=== PATIENT | female | born 1980 | race African-American/Black ===

== ENCOUNTER 2021-02-26 13:10 | Inpatient (IN) | payer MEDICARE, MEDICAID, SELFPAY ==
--- NOTE | 2021-02-26 16:34 | PM.IMCN ---
History of Present Illness Data of Consult Service Date: 02/26/21 Requesting physician: Deyvi Santiago Primary Care Provider: Geoff Shepard MD HPI Reason for consult: Routine This is a 40 yo F admitted to . Medical consultation sought for routine medical H&P. Patient is seen and examined in her room. History is otained from the records sent over from [facility]. Patient is unable to provide any meaningful history and in fact she is unable to participate in any conversation at this time. She appears to be having a conversation with herself. Per records from [facility] -- patient has PMH of schizophrenia, bipolar disorder, PTSD, HTN, Hypothyroidism and is a resident of a jail. She wasn sent to [facility] for evaluation after trying to elope from the jail. She appeared to be responding to an internal stimuli. She was reportedly far off her baseline on the day she presented to [facility]. She underwent medical evaluation after which she was medically cleared and a psych bed search was initiated. She was subsequently [place] [facility] Review of Systems Review of Systems: unable to obtain [facility] Social History Advance Directives: No Advance Directives Information Provided: No Meds Allergies Allergy/AdvReac Type Severity Reaction Status Date / Time No Known Allergies Allergy Unverified 02/26/21 15:41 Active Medications: Current Medications Generic Name Dose Route Start Last Admin Trade Name [place] PRN Reason Stop Dose Admin Acetaminophen 650 mg 02/26/21 13:14 Acetaminophen 325 Mg Tablet PO Q6H PRN Headache/Pain Mild Scale (1-3) Al Hydroxide/Mg Hydroxide 30 ml 02/26/21 13:14 Magnesium Hydrox/Alum Hydrox 30 Ml Oral.Susp PO Q6H PRN Heartburn/Nausea Aripiprazole 30 mg 02/27/21 09:00 Aripiprazole 30 Mg Tablet PO DAILY OLYA Benztropine Mesylate 2 mg 02/26/21 21:00 Benztropine Mesylate 1 Mg Tablet PO BID OLYA Clonazepam 0.5 mg 02/26/21 21:00 Clonazepam 0.5 Mg Tablet PO BID OLYA Clonidine HCl 0.1 mg 02/26/21 21:00 Clonidine Hcl 0.1 Mg Tablet PO BEDTIME OLYA Protocol Divalproex Sodium 250 mg 02/26/21 21:00 Divalproex Sodium Er 250 Mg Tab.Er.24h PO BEDTIME OLYA Divalproex Sodium 1,000 mg 02/26/21 21:00 Divalproex Sodium Er 500 Mg Tab.Er.24h PO BEDTIME [facility] Docusate Sodium 100 mg 02/26/21 21:00 Docusate Sodium 100 Mg Capsule PO BID [facility] Haloperidol 5 mg 02/27/21 09:00 Haloperidol 5 Mg Tablet PO DAILY [facility] Haloperidol 15 mg 02/26/21 21:00 Haloperidol 5 Mg Tablet PO BEDTIME [facility] Hydroxyzine HCl 25 mg 02/26/21 13:14 Hydroxyzine Hcl 25 Mg Tablet PO BEDTIME PRN Anxiety Lactase 1 tab 02/26/21 17:00 Lactase Tablet PO TIDWM [facility] Levothyroxine Sodium 50 mcg 02/27/21 06:30 Levothyroxine Sodium 50 Mcg Tablet PO DAILY@0630 [facility] [place] Carbonate 900 mg 02/26/21 21:00 [place] Carbonate 300 Mg Capsule PO BEDTIME [facility] Loratadine 10 mg 02/27/21 09:00 Loratadine 10 Mg Tablet PO DAILY [facility] Magnesium Hydroxide 30 ml 02/26/21 13:14 Milk Of Magnesia 30 Ml Oral.Susp PO DAILY PRN Constipation Nicotine Polacrilex 2 mg 02/26/21 13:14 Nicotine Polacrilex 2 Mg Gum BUCCAL Q2H PRN Nicotine Cravings Oxybutynin Chloride 10 mg 02/27/21 09:00 Oxybutynin Chloride Er 5 Mg Tab.Er.24 PO DAILY [facility] Sertraline HCl 150 mg 02/27/21 09:00 Sertraline Hcl 50 Mg Tablet PO DAILY [facility] Trazodone HCl 50 mg 02/26/21 13:14 Trazodone Hcl 50 Mg Tablet PO BEDTIME PRN Insomnia Home Medications Medication Instructions Recorded Confirmed Last Taken Type aripiprazole [Abilify] 30 mg PO DAILY 02/26/21 02/26/21 Unknown History benztropine 2 mg PO BID 02/26/21 02/26/21 Unknown History clonazepam 0.5 mg PO BID 02/26/21 02/26/21 Unknown History clonidine HCl 0.1 mg PO BEDTIME 02/26/21 02/26/21 Unknown History divalproex [Depakote ER] 1,250 mg PO BEDTIME 02/26/21 02/26/21 Unknown History docusate sodium 100 mg PO BID 02/26/21 02/26/21 Unknown History haloperidol [Haldol] 5 mg PO DAILY 02/26/21 02/26/21 Unknown History haloperidol [Haldol] 15 mg PO BEDTIME 02/26/21 02/26/21 Unknown History lactase 3,000 unit TIDWMEAL 02/26/21 02/26/21 Unknown History levothyroxine 50 mcg PO DAILY@0630 02/26/21 02/26/21 Unknown History lithium carbonate 900 mg PO BEDTIME 02/26/21 02/26/21 Unknown History loratadine 10 mg PO DAILY 02/26/21 02/26/21 Unknown History oxybutynin chloride 10 mg PO DAILY 02/26/21 02/26/21 Unknown History sertraline 150 mg PO DAILY 02/26/21 02/26/21 Unknown History Physical Exam Const: Other: General - talking to self, laying in bed and appears without any acute distress Cardiovascular - S1S2 Lungs - no respiratory distress apprecaited Abdomen - soft, nontender, no rebound or guarding Neuro - awake and alert, moving all 4 limbs, no obvious focal neurological deficits Psych - tangential thoughts, unable to redirect Assessment and Plan (1) Hypothyroidism: Status: Acute This is a 40 yo F with a PMH of HTN, hypothyrodism and psych reported from [facility] as schizophrenia, bipolar disorder, PTSD who is a resident of a jail and is admitted to . Medical consultation sought for routine medical H&P. At this time, patients symptoms appear related to a primary psych diagnosis. She did have a temp of 100.0 (once, with repeat down to 99.2) at [facility]. Her infectious work up there was negative (at least UA, I do not see the results of chest xr or any blood cultures if drawn). Her TSH was mildly elevated -- would recommend checking a TSH with reflex T4. In the meantime, we can continue her baseline synthroid. She had ketones in the urine + blood (from [facility] records) -- which was felt to be secondary to dehydration. She was treated with IVF there. Would encourage oral hydration. Please reconsult if any medical issues arise.
[2021-02-26 17:00] VITALS: BP 134/82; PULSE 86; RESP 16; TEMP 36.8; O2SAT 99
[2021-02-26] MEDS: Lactase TABLET 1 TAB PO (17:11)
[2021-02-26] MEDS: hydrOXYzine HCL 25 MG TABLET PO (17:11)
--- NOTE | 2021-02-26 18:47 | PC.ADMIT ---
Pt unable to answer questions d/t disorganized thought process. Legal Guardian and [facility] staff called, messages left, awaiting return call. Therefore the information included in admission asssessment is from crisis evaluation and observation of patient only. This patient is alert but disoriented, exhibits bizarre speech and behaviors. She displays lability of mood - laughing at times, tearful at others. Her ability to attend to assessment or general conversation is extremely limited. She is distracted to the point where even eating is difficult. She is hyperverbal but unable to answer questions appropriately. She is responding to internal stimuli. Notably her belongings are soiled with urine and were washed upon her arrival to the unit. She is on 5 minute checks for safety.
[2021-02-26] MEDS: HaloperidoL 5 MG TABLET 15 MG PO (20:27)
[2021-02-26] MEDS: Lithium Carbonate 300 MG CAPSULE 900 MG PO (20:28)
[2021-02-26] MEDS: clonazePAM 0.5 MG TABLET PO (20:29)
[2021-02-26] MEDS: Divalproex Sodium ER 500 MG TAB.ER.24H 1000 MG PO (20:29)
[2021-02-26] MEDS: Divalproex Sodium ER 250 MG TAB.ER.24H PO (20:30)
[2021-02-26] MEDS: Benztropine Mesylate 1 MG TABLET 2 MG PO (20:31)
[2021-02-26] MEDS: Docusate Sodium 100 MG CAPSULE PO (20:31)
[2021-02-26 20:32] VITALS: BP 130/80; PULSE 92
[2021-02-26] MEDS: cloNIDine HCL 0.1 MG TABLET PO (20:32)
[2021-02-27] MEDS: hydrOXYzine HCL 25 MG TABLET PO (03:36)
[2021-02-27 10:08] LABS: TSH reflex Free T4 2.68 uIU/mL (0.32-4.0)
[2021-02-27] MEDS: Lactase TABLET 1 TAB PO (14:08)
[2021-02-27] MEDS: Benztropine Mesylate 1 MG TABLET 2 MG PO (14:11)
[2021-02-27] MEDS: clonazePAM 0.5 MG TABLET PO ×2 (14:12→20:43)
[2021-02-27] MEDS: Docusate Sodium 100 MG CAPSULE PO (14:13)
[2021-02-27] MEDS: Levothyroxine Sodium 50 MCG TABLET PO (14:13)
[2021-02-27] MEDS: Loratadine 10 MG TABLET PO (14:14)
[2021-02-27] MEDS: ARIPiprazole 30 MG TABLET PO (14:14)
[2021-02-27] MEDS: HaloperidoL 5 MG TABLET PO (14:14)
[2021-02-27] MEDS: Sertraline HCL 50 MG TABLET 150 MG PO (14:15)
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
[2021-02-27 18:00] VITALS: BP 144/86; PULSE 88; RESP 18; TEMP 36.7; O2SAT 99
[2021-02-27] MEDS: HaloperidoL 5 MG TABLET 15 MG PO (20:25)
[2021-02-27 20:47] VITALS: BP 146/88; PULSE 94
[2021-02-27] MEDS: cloNIDine HCL 0.1 MG TABLET PO (20:47)
[2021-02-27] MEDS: Divalproex Sodium ER 500 MG TAB.ER.24H 1000 MG PO (20:49)
[2021-02-27] MEDS: Lithium Carbonate 300 MG CAPSULE 900 MG PO (20:49)
[2021-02-27] MEDS: Divalproex Sodium ER 250 MG TAB.ER.24H PO (20:49)
[2021-02-28] MEDS: clonazePAM 0.5 MG TABLET PO ×2 (09:26→20:03)
[2021-02-28] MEDS: HaloperidoL 5 MG TABLET PO (09:26)
[2021-02-28] MEDS: Benztropine Mesylate 1 MG TABLET 2 MG PO ×2 (09:26→20:02)
[2021-02-28] MEDS: Docusate Sodium 100 MG CAPSULE PO ×2 (11:04→20:04)
[2021-02-28] MEDS: Lactase TABLET 1 TAB PO ×2 (11:04→16:49)
[2021-02-28] MEDS: Sertraline HCL 50 MG TABLET 150 MG PO (11:05)
[2021-02-28] MEDS: Levothyroxine Sodium 50 MCG TABLET PO (11:05)
[2021-02-28] MEDS: ARIPiprazole 30 MG TABLET PO (11:05)
[2021-02-28] MEDS: Loratadine 10 MG TABLET PO (11:05)
--- NOTE | 2021-02-28 13:31 | HO.PSYCHPN ---
Subjective Subjective Date of Service: 02/28/21 Reason For Visit: Schizophrenia Interim History: pt found in her bed talking softly to herself. difficult to comprehend speech. able to make out she is cold; MD suggests she get under her sheets and blanket. MD encourages pt to take her medication. per staff, slept much of the night. this morning episode of coming into the hallway disrobed, dripping with urine, screaming. taking psych meds. Mental Status Exam Mental Status Exam Narrative: dressed in [facility], lying in bed talking to herself. no PMA/PMR. cooperative with interview. speech rapid, soft, flat, mumbled, difficult to comprehend. thoughts disorganized. affect constricted, non-labile. mood not assessed, SI/HI/AVH not assessed, although pt does appear to be RIS. Diagnostics Vital Signs (24Hr): Vital Signs - 24 hr 02/27/21 18:00 02/27/21 20:47 Temperature 98.1 F Pulse Rate 88 94 Respiratory Rate 18 Blood Pressure 144/86 H 146/88 H Pulse Oximetry 99 Labs Labs: Laboratory Results - last 48 hr 02/27/21 09:20 TSH 2.68 Medications Medications Current Medications Generic Name Dose Route Start Last Admin Trade Name Freq PRN Reason Stop Dose Admin Acetaminophen 650 mg 02/26/21 13:14 Acetaminophen 325 Mg Tablet PO Q6H PRN Headache/Pain Mild Scale (1-3) Al Hydroxide/Mg Hydroxide 30 ml 02/26/21 13:14 Magnesium Hydrox/Alum Hydrox 30 Ml Oral.Susp PO Q6H PRN Heartburn/Nausea Aripiprazole 30 mg 02/27/21 09:00 02/28/21 11:05 Aripiprazole 30 Mg Tablet PO 30 mg DAILY OLYA Administration Benztropine Mesylate 2 mg 02/26/21 21:00 02/28/21 09:26 Benztropine Mesylate 1 Mg Tablet PO 2 mg BID OLYA Administration Clonazepam 0.5 mg 02/26/21 21:00 02/28/21 09:26 Clonazepam 0.5 Mg Tablet PO 0.5 mg BID OLYA Administration Clonidine HCl 0.1 mg 02/26/21 21:00 02/27/21 20:47 Clonidine Hcl 0.1 Mg Tablet PO 0.1 mg BEDTIME OLYA Administration Protocol Divalproex Sodium 250 mg 02/26/21 21:00 02/27/21 20:49 Divalproex Sodium Er 250 Mg Tab.Er.24h PO 250 mg BEDTIME OLYA Administration Divalproex Sodium 1,000 mg 02/26/21 21:00 02/27/21 20:49 Divalproex Sodium Er 500 Mg Tab.Er.24h PO 1,000 mg BEDTIME OLYA Administration Docusate Sodium 100 mg 02/26/21 21:00 02/28/21 11:04 Docusate Sodium 100 Mg Capsule PO 100 mg BID OLYA Administration Haloperidol 5 mg 02/27/21 09:00 02/28/21 09:26 Haloperidol 5 Mg Tablet PO 5 mg DAILY OLYA Administration Haloperidol 15 mg 02/26/21 21:00 02/27/21 20:25 Haloperidol 5 Mg Tablet PO 15 mg BEDTIME OLYA Administration Hydroxyzine HCl 25 mg 02/26/21 13:14 02/27/21 03:36 Hydroxyzine Hcl 25 Mg Tablet PO 25 mg BEDTIME PRN Administration Anxiety Lactase 1 tab 02/26/21 17:00 02/28/21 11:04 Lactase Tablet PO 1 tab TIDWM OLYA Administration Levothyroxine Sodium 50 mcg 02/27/21 06:30 02/28/21 11:05 Levothyroxine Sodium 50 Mcg Tablet PO 50 mcg DAILY@0630 OLYA Administration [place] Carbonate 900 mg 02/26/21 21:00 02/27/21 20:49 [place] Carbonate 300 Mg Capsule PO 900 mg BEDTIME OLYA Administration Loratadine 10 mg 02/27/21 09:00 02/28/21 11:05 Loratadine 10 Mg Tablet PO 10 mg DAILY OLYA Administration Magnesium Hydroxide 30 ml 02/26/21 13:14 Milk Of Magnesia 30 Ml Oral.Susp PO DAILY PRN Constipation Nicotine Polacrilex 2 mg 02/26/21 13:14 Nicotine Polacrilex 2 Mg Gum BUCCAL Q2H PRN Nicotine Cravings Oxybutynin Chloride 10 mg 02/27/21 09:00 02/28/21 11:05 Oxybutynin Chloride Er 5 Mg Tab.Er.24 PO 10 mg DAILY OLYA Administration Sertraline HCl 150 mg 02/27/21 09:00 02/28/21 11:05 Sertraline Hcl 50 Mg Tablet PO 150 mg DAILY OLYA Administration Trazodone HCl 50 mg 02/26/21 13:14 Trazodone Hcl 50 Mg Tablet PO BEDTIME PRN Insomnia Allergies Allergies Allergy/AdvReac Type Severity Reaction Status Date / Time No Known Allergies Allergy Unverified 02/26/21 15:41 Assessment & Plan Assessment & Plan (1) Schizoaffective disorder, bipolar type: Status: Acute Code(s): F25.0 - Schizoaffective disorder, bipolar type Assessment and Plan: restarted/continued outpt meds. check levels after 5 days. verify compliance. (2) PTSD (post-traumatic stress disorder): Status: Acute Code(s): F43.10 - Post-traumatic stress disorder, unspecified Assessment and Plan: continue/restart outpt medications regimen. Greater than 50% of the session was spent on counseling and/or coordination of care Reason for contiued inpatient stay Substantial Risk for: inability to function and rapid decompensation
[2021-02-28 15:11] VITALS: BP 133/83; PULSE 111; RESP 20; TEMP 36.4; O2SAT 95
[2021-02-28] MEDS: Divalproex Sodium ER 250 MG TAB.ER.24H PO (20:03)
[2021-02-28] MEDS: HaloperidoL 5 MG TABLET 15 MG PO (20:03)
[2021-02-28] MEDS: Divalproex Sodium ER 500 MG TAB.ER.24H 1000 MG PO (20:03)
[2021-02-28] MEDS: Lithium Carbonate 300 MG CAPSULE 900 MG PO (20:04)
[2021-02-28 22:28] VITALS: BP 122/90; PULSE 120; TEMP 36.6; O2SAT 98
[2021-02-28 23:22] VITALS: BP 122/90; PULSE 120
[2021-02-28] MEDS: cloNIDine HCL 0.1 MG TABLET PO (23:22)
[2021-03-01] MEDS: Benztropine Mesylate 1 MG TABLET 2 MG PO ×2 (11:47→20:48)
[2021-03-01] MEDS: clonazePAM 0.5 MG TABLET PO ×2 (11:48→20:48)
[2021-03-01] MEDS: ARIPiprazole 30 MG TABLET PO (11:48)
[2021-03-01] MEDS: Sertraline HCL 50 MG TABLET 150 MG PO (11:50)
[2021-03-01] MEDS: Loratadine 10 MG TABLET PO (11:50)
[2021-03-01] MEDS: Levothyroxine Sodium 50 MCG TABLET PO (11:50)
[2021-03-01] MEDS: Lactase TABLET 1 TAB PO ×2 (11:51→17:31)
[2021-03-01] MEDS: Docusate Sodium 100 MG CAPSULE PO ×2 (11:51→20:48)
[2021-03-01] MEDS: HaloperidoL 5 MG TABLET PO (12:00)
--- NOTE | 2021-03-01 15:41 | P.PNPSI_ITS ---
Subjective Subjective Date of Service: 03/01/21 Reason For Visit: Schizophrenia Interim History: pt found in her bed talking softly to herself. difficult to comprehend speech. MD encourages pt to take her medication. per staff, RIS all day yesterday. mildly more engageable. incontinent this morning. took all meds. Mental Status Exam Mental Status Exam Narrative: dressed in [facility], lying in bed talking to herself. no PMA/PMR. cooperative with interview. speech rapid, soft, flat, mumbled, difficult to comprehend. thoughts disorganized. affect constricted, non-labile. mood not assessed, SI/HI/AVH not assessed, although pt does appear to be RIS. Diagnostics Vital Signs (24Hr): Vital Signs - 24 hr 02/28/21 22:28 02/28/21 23:22 Temperature 97.9 F Pulse Rate 120 H 120 H Blood Pressure 122/90 H 122/90 H Pulse Oximetry 98 Medications Medications Current Medications Generic Name Dose Route Start Last Admin Trade Name Freq PRN Reason Stop Dose Admin Acetaminophen 650 mg 02/26/21 13:14 Acetaminophen 325 Mg Tablet PO Q6H PRN Headache/Pain Mild Scale (1-3) Al Hydroxide/Mg Hydroxide 30 ml 02/26/21 13:14 Magnesium Hydrox/Alum Hydrox 30 Ml Oral.Susp PO Q6H PRN Heartburn/Nausea Aripiprazole 30 mg 02/27/21 09:00 03/01/21 11:48 Aripiprazole 30 Mg Tablet PO 30 mg DAILY OLYA Administration Benztropine Mesylate 2 mg 02/26/21 21:00 03/01/21 11:47 Benztropine Mesylate 1 Mg Tablet PO 2 mg BID OLYA Administration Clonazepam 0.5 mg 02/26/21 21:00 03/01/21 11:48 Clonazepam 0.5 Mg Tablet PO 0.5 mg BID OLYA Administration Clonidine HCl 0.1 mg 02/26/21 21:00 02/28/21 23:22 Clonidine Hcl 0.1 Mg Tablet PO 0.1 mg BEDTIME OLYA Administration Protocol Divalproex Sodium 250 mg 02/26/21 21:00 02/28/21 20:03 Divalproex Sodium Er 250 Mg Tab.Er.24h PO 250 mg BEDTIME OLYA Administration Divalproex Sodium 1,000 mg 02/26/21 21:00 02/28/21 20:03 Divalproex Sodium Er 500 Mg Tab.Er.24h PO 1,000 mg BEDTIME OLYA Administration Docusate Sodium 100 mg 02/26/21 21:00 03/01/21 11:51 Docusate Sodium 100 Mg Capsule PO 100 mg BID OLYA Administration Haloperidol 5 mg 02/27/21 09:00 03/01/21 12:00 Haloperidol 5 Mg Tablet PO 5 mg DAILY OLYA Administration Haloperidol 15 mg 02/26/21 21:00 02/28/21 20:03 Haloperidol 5 Mg Tablet PO 15 mg BEDTIME OLYA Administration Hydroxyzine HCl 25 mg 02/26/21 13:14 02/27/21 03:36 Hydroxyzine Hcl 25 Mg Tablet PO 25 mg BEDTIME PRN Administration Anxiety Lactase 1 tab 02/26/21 17:00 03/01/21 14:40 Lactase Tablet PO Not Given TIDWM OLYA Levothyroxine Sodium 50 mcg 02/27/21 06:30 03/01/21 11:50 Levothyroxine Sodium 50 Mcg Tablet PO 50 mcg DAILY@0630 OLYA Administration [place] Carbonate 900 mg 02/26/21 21:00 02/28/21 20:04 [place] Carbonate 300 Mg Capsule PO 900 mg BEDTIME OLYA Administration Loratadine 10 mg 02/27/21 09:00 03/01/21 11:50 Loratadine 10 Mg Tablet PO 10 mg DAILY OLYA Administration Magnesium Hydroxide 30 ml 02/26/21 13:14 Milk Of Magnesia 30 Ml Oral.Susp PO DAILY PRN Constipation Nicotine Polacrilex 2 mg 02/26/21 13:14 Nicotine Polacrilex 2 Mg Gum BUCCAL Q2H PRN Nicotine Cravings Oxybutynin Chloride 10 mg 02/27/21 09:00 03/01/21 11:49 Oxybutynin Chloride Er 5 Mg Tab.Er.24 PO 10 mg DAILY OLYA Administration Sertraline HCl 150 mg 02/27/21 09:00 03/01/21 11:50 Sertraline Hcl 50 Mg Tablet PO 150 mg DAILY OLYA Administration Trazodone HCl 50 mg 02/26/21 13:14 Trazodone Hcl 50 Mg Tablet PO BEDTIME PRN Insomnia Allergies Allergies Allergy/AdvReac Type Severity Reaction Status Date / Time No Known Allergies Allergy Unverified 02/26/21 15:41 Assessment & Plan Assessment & Plan (1) Schizoaffective disorder, bipolar type: Status: Acute Code(s): F25.0 - Schizoaffective disorder, bipolar type Assessment and Plan: restarted/continued outpt meds. check levels after 5 days. verify compliance. (2) PTSD (post-traumatic stress disorder): Status: Acute Code(s): F43.10 - Post-traumatic stress disorder, unspecified Assessment and Plan: continue/restart outpt medications regimen. Greater than 50% of the session was spent on counseling and/or coordination of care Reason for contiued inpatient stay Substantial Risk for: inability to function and rapid decompensation
[2021-03-01] MEDS: Divalproex Sodium ER 500 MG TAB.ER.24H 1000 MG PO (20:48)
[2021-03-01] MEDS: Lithium Carbonate 300 MG CAPSULE 900 MG PO (20:48)
[2021-03-01] MEDS: Divalproex Sodium ER 250 MG TAB.ER.24H PO (20:48)
[2021-03-01] MEDS: HaloperidoL 5 MG TABLET 15 MG PO (20:48)
[2021-03-01 20:49] VITALS: BP 108/76; PULSE 96
[2021-03-01] MEDS: cloNIDine HCL 0.1 MG TABLET PO (20:49)
[2021-03-02 06:00] VITALS: BP 118/80; PULSE 82; RESP 20; TEMP 36.5; O2SAT 90
[2021-03-02] MEDS: Loratadine 10 MG TABLET PO (09:29)
[2021-03-02] MEDS: Sertraline HCL 50 MG TABLET 150 MG PO (09:29)
[2021-03-02] MEDS: ARIPiprazole 30 MG TABLET PO (09:30)
[2021-03-02] MEDS: HaloperidoL 5 MG TABLET PO (09:30)
[2021-03-02] MEDS: Benztropine Mesylate 1 MG TABLET 2 MG PO ×2 (09:30→20:36)
[2021-03-02] MEDS: Docusate Sodium 100 MG CAPSULE PO ×2 (09:30→20:36)
[2021-03-02] MEDS: Lactase TABLET 1 TAB PO ×2 (09:31→17:35)
[2021-03-02] MEDS: clonazePAM 0.5 MG TABLET PO ×2 (09:31→20:36)
[2021-03-02] MEDS: Levothyroxine Sodium 50 MCG TABLET PO (09:31)
--- NOTE | 2021-03-02 13:31 | P.PNPSI_ITS ---
Subjective Subjective Date of Service: 03/02/21 Reason For Visit: Schizophrenia Interim History: pt found in her bed early afternoon sleeping. easily rousable to conversational voice but keeps falling back asleep again. difficult to comprehend speech. per staff, slept through the night last night. ate all her breakfast and took all her meds this morning. no disruptive behaviors, no incontinence noted. Mental Status Exam Mental Status Exam Narrative: dressed in hospital [place], lying in bed sleeping. rousable. no PMA/PMR. cooperative with interview. speech rapid, soft, flat, mumbled, difficult to comprehend. thoughts difficult to assess. affect constricted, non- labile. mood not assessed, SI/HI/AVH not assessed. Diagnostics Vital Signs (24Hr): Vital Signs - 24 hr 03/01/21 20:49 03/02/21 06:00 Temperature 97.7 F Pulse Rate 96 82 Respiratory Rate 20 Blood Pressure 108/76 118/80 Pulse Oximetry 90 L Medications Medications Current Medications Generic Name Dose Route Start Last Admin Trade Name Lonnieq PRN Reason Stop Dose Admin Acetaminophen 650 mg 02/26/21 13:14 Acetaminophen 325 Mg Tablet PO Q6H PRN Headache/Pain Mild Scale (1-3) Al Hydroxide/Mg Hydroxide 30 ml 02/26/21 13:14 Magnesium Hydrox/Alum Hydrox 30 Ml Oral.Susp PO Q6H PRN Heartburn/Nausea Aripiprazole 30 mg 02/27/21 09:00 03/02/21 09:30 Aripiprazole 30 Mg Tablet PO 30 mg DAILY OLYA Administration Benztropine Mesylate 2 mg 02/26/21 21:00 03/02/21 09:30 Benztropine Mesylate 1 Mg Tablet PO 2 mg BID OLYA Administration Clonazepam 0.5 mg 02/26/21 21:00 03/02/21 09:31 Clonazepam 0.5 Mg Tablet PO 0.5 mg BID OLYA Administration Clonidine HCl 0.1 mg 02/26/21 21:00 03/01/21 20:49 Clonidine Hcl 0.1 Mg Tablet PO 0.1 mg BEDTIME OLYA Administration Protocol Divalproex Sodium 250 mg 02/26/21 21:00 03/01/21 20:48 Divalproex Sodium Er 250 Mg Tab.Er.24h PO 250 mg BEDTIME OLYA Administration Divalproex Sodium 1,000 mg 02/26/21 21:00 03/01/21 20:48 Divalproex Sodium Er 500 Mg Tab.Er.24h PO 1,000 mg BEDTIME OLYA Administration Docusate Sodium 100 mg 02/26/21 21:00 03/02/21 09:30 Docusate Sodium 100 Mg Capsule PO 100 mg BID OLYA Administration Haloperidol 5 mg 02/27/21 09:00 03/02/21 09:30 Haloperidol 5 Mg Tablet PO 5 mg DAILY OLYA Administration Haloperidol 15 mg 02/26/21 21:00 03/01/21 20:48 Haloperidol 5 Mg Tablet PO 15 mg BEDTIME OLYA Administration Hydroxyzine HCl 25 mg 02/26/21 13:14 02/27/21 03:36 Hydroxyzine Hcl 25 Mg Tablet PO 25 mg BEDTIME PRN Administration Anxiety Lactase 1 tab 02/26/21 17:00 03/02/21 09:31 Lactase Tablet PO 1 tab TIDWM OLYA Administration Levothyroxine Sodium 50 mcg 02/27/21 06:30 03/02/21 09:31 Levothyroxine Sodium 50 Mcg Tablet PO 50 mcg DAILY@0630 OLYA Administration [place] Carbonate 900 mg 02/26/21 21:00 03/01/21 20:48 [place] Carbonate 300 Mg Capsule PO 900 mg BEDTIME OLYA Administration Loratadine 10 mg 02/27/21 09:00 03/02/21 09:29 Loratadine 10 Mg Tablet PO 10 mg DAILY OLYA Administration Magnesium Hydroxide 30 ml 02/26/21 13:14 Milk Of Magnesia 30 Ml Oral.Susp PO DAILY PRN Constipation Nicotine Polacrilex 2 mg 02/26/21 13:14 Nicotine Polacrilex 2 Mg Gum BUCCAL Q2H PRN Nicotine Cravings Oxybutynin Chloride 10 mg 02/27/21 09:00 03/02/21 09:30 Oxybutynin Chloride Er 5 Mg Tab.Er.24 PO 10 mg DAILY OLYA Administration Sertraline HCl 150 mg 02/27/21 09:00 03/02/21 09:29 Sertraline Hcl 50 Mg Tablet PO 150 mg DAILY OLYA Administration Trazodone HCl 50 mg 02/26/21 13:14 Trazodone Hcl 50 Mg Tablet PO BEDTIME PRN Insomnia Allergies Allergies Allergy/AdvReac Type Severity Reaction Status Date / Time No Known Allergies Allergy Unverified 02/26/21 15:41 Assessment & Plan Assessment & Plan (1) Schizoaffective disorder, bipolar type: Status: Acute Code(s): F25.0 - Schizoaffective disorder, bipolar type Assessment and Plan: restarted/continued outpt meds. check levels after 5 days (03/03). verify compliance. (2) PTSD (post-traumatic stress disorder): Status: Acute Code(s): F43.10 - Post-traumatic stress disorder, unspecified Assessment and Plan: continue/restart outpt medications regimen. Greater than 50% of the session was spent on counseling and/or coordination of care Reason for contiued inpatient stay Substantial Risk for: inability to function and rapid decompensation
[2021-03-02 20:36] VITALS: BP 126/77; PULSE 83
[2021-03-02] MEDS: Divalproex Sodium ER 500 MG TAB.ER.24H 1000 MG PO (20:36)
[2021-03-02] MEDS: Divalproex Sodium ER 250 MG TAB.ER.24H PO (20:36)
[2021-03-02] MEDS: Lithium Carbonate 300 MG CAPSULE 900 MG PO (20:36)
[2021-03-02] MEDS: cloNIDine HCL 0.1 MG TABLET PO (20:36)
[2021-03-02] MEDS: HaloperidoL 5 MG TABLET 15 MG PO (20:36)
[2021-03-02 20:46] VITALS: TEMP 36.7
--- NOTE | 2021-03-03 07:09 | P.PNPSI_ITS ---
Subjective Subjective Date of Service: 03/04/21 Reason For Visit: Schizophrenia Interim History: Pt lying in bed, mostly resting, does respond when her name is called. She is very malodorous and unkept. Pt reports doing well, most speech intelligible. She denies SI/HI. Pt requires significant assistance from staff to care for self. Review of Systems Review of Systems unable to obtain Mental Status Exam Mental Status Exam Narrative: Appearance: [place], wearing hospital gown, very malodorous and unkempt, in NAD Behavior: calm, but interview limited by sedation/somnolence Psychomotor: retardation noted Speech: mumbles at times,delayed response rate,soft volume, minimally spontaneous TP: disorganized TC: mostly intelligible Mood: okay Affect:somnolent SI:denies HI:denies AH/VH:appears internally preoccupied Delusions:guarded Insight/judgment:impaired x 2. Memory/cog: alert, impaired secondary to psych symptoms. Diagnostics Vital Signs (24Hr): Vital Signs - 24 hr 03/03/21 08:43 03/03/21 18:00 Temperature 98.1 F 98.7 F Pulse Rate 74 75 Respiratory Rate 18 18 Blood Pressure 120/78 132/88 Pulse Oximetry 92 Labs Results: 03/03/21 07:03 03/03/21 07:03 Labs: Laboratory Results - last 48 hr 03/03/21 03/03/21 03/03/21 07:03 07:03 07:03 WBC 6.2 RBC 4.37 Hgb 13.2 Hct 43.0 MCV 98.4 H MCH 30.2 MCHC 30.7 L RDW 12.5 Plt Count 276 MPV 9.8 Immature Gran % (Auto) 0.6 H Neut % (Auto) 56.1 Lymph % (Auto) 30.0 [place] % (Auto) 10.2 Eos % (Auto) 2.9 Baso % (Auto) 0.2 Lymph # (Auto) 1.9 [place] # (Auto) 0.6 Eos # (Auto) 0.2 Baso # (Auto) 0.0 Abs Immat Gran (auto) 0.04 H Absolute Neuts (auto) 3.5 Absolute Nucleated RBC 0.000 Nucleated RBC % (auto) 0.0 Sodium 142 Potassium 4.7 Chloride 108 Carbon Dioxide 26 Anion Gap 13 BUN 16 Creatinine 0.80 Estim Creat Clear Calc TNP Estimated GFR > 60 Random Glucose 87 Calcium 10.4 H Total Bilirubin 0.5 Direct Bilirubin < 0.2 AST 16 ALT 21 Alkaline Phosphatase 61 Ammonia 36 Total Protein 7.1 Albumin 4.3 Vitamin B12 Folate Urine Color Urine Appearance Urine pH Ur Specific [place] Urine Protein Urine Glucose (UA) Urine Ketones Urine Blood Urine Nitrite Ur Leukocyte Esterase Valproic Acid 86.6 [place] 03/03/21 03/03/21 03/03/21 07:03 07:03 15:07 WBC RBC Hgb Hct MCV MCH MCHC RDW Plt Count MPV Immature Gran % (Auto) Neut % (Auto) Lymph % (Auto) [place] % (Auto) Eos % (Auto) Baso % (Auto) Lymph # (Auto) [place] # (Auto) Eos # (Auto) Baso # (Auto) Abs Immat Gran (auto) Absolute Neuts (auto) Absolute Nucleated RBC Nucleated RBC % (auto) Sodium Potassium Chloride Carbon Dioxide Anion Gap BUN Creatinine Estim Creat Clear Calc Estimated GFR Random Glucose Calcium 10.4 H Total Bilirubin Direct Bilirubin AST ALT Alkaline Phosphatase Ammonia Total Protein Albumin Vitamin B12 490 Folate 16.1 Urine Color YELLOW Urine Appearance HAZY Urine pH 6.5 Ur Specific [place] 1.020 Urine Protein NEG Urine Glucose (UA) NEG Urine Ketones NEG Urine Blood NEG Urine Nitrite NEG Ur Leukocyte Esterase NEG Valproic Acid [place] 03/04/21 06:07 WBC RBC Hgb Hct MCV MCH MCHC RDW Plt Count MPV Immature Gran % (Auto) Neut % (Auto) Lymph % (Auto) [place] % (Auto) Eos % (Auto) Baso % (Auto) Lymph # (Auto) [place] # (Auto) Eos # (Auto) Baso # (Auto) Abs Immat Gran (auto) Absolute Neuts (auto) Absolute Nucleated RBC Nucleated RBC % (auto) Sodium Potassium Chloride Carbon Dioxide Anion Gap BUN Creatinine Estim Creat Clear Calc Estimated GFR Random Glucose Calcium Total Bilirubin Direct Bilirubin AST ALT Alkaline Phosphatase Ammonia Total Protein Albumin Vitamin B12 Folate Urine Color Urine Appearance Urine pH Ur Specific [place] Urine Protein Urine Glucose (UA) Urine Ketones Urine Blood Urine Nitrite Ur Leukocyte Esterase Valproic Acid [place] 1.49 H Medications Medications Current Medications Generic Name Dose Route Start Last Admin Trade Name Freq PRN Reason Stop Dose Admin Acetaminophen 650 mg 02/26/21 13:14 Acetaminophen 325 Mg Tablet PO Q6H PRN Headache/Pain Mild Scale (1-3) Al Hydroxide/Mg Hydroxide 30 ml 02/26/21 13:14 Magnesium Hydrox/Alum Hydrox 30 Ml Oral.Susp PO Q6H PRN Heartburn/Nausea Aripiprazole 30 mg 02/27/21 09:00 03/03/21 08:45 Aripiprazole 30 Mg Tablet PO 30 mg DAILY OLYA Administration Benztropine Mesylate 2 mg 02/26/21 21:00 03/03/21 21:15 Benztropine Mesylate 1 Mg Tablet PO 2 mg BID OLYA Administration Clonazepam 0.5 mg 03/04/21 09:00 Clonazepam 0.5 Mg Tablet PO BID OLYA Clonidine HCl 0.1 mg 02/26/21 21:00 03/03/21 21:15 Clonidine Hcl 0.1 Mg Tablet PO 0.1 mg BEDTIME OLYA Administration Protocol Divalproex Sodium 250 mg 02/26/21 21:00 03/03/21 21:15 Divalproex Sodium Er 250 Mg Tab.Er.24h PO 250 mg BEDTIME OLYA Administration Divalproex Sodium 1,000 mg 02/26/21 21:00 03/03/21 21:16 Divalproex Sodium Er 500 Mg Tab.Er.24h PO 1,000 mg BEDTIME OLYA Administration Docusate Sodium 100 mg 02/26/21 21:00 03/03/21 21:15 Docusate Sodium 100 Mg Capsule PO 100 mg BID OLYA Administration Haloperidol 5 mg 02/27/21 09:00 03/03/21 08:45 Haloperidol 5 Mg Tablet PO 5 mg DAILY OLYA Administration Haloperidol 15 mg 02/26/21 21:00 03/03/21 21:15 Haloperidol 5 Mg Tablet PO 15 mg BEDTIME OLYA Administration Hydroxyzine HCl 25 mg 02/26/21 13:14 02/27/21 03:36 Hydroxyzine Hcl 25 Mg Tablet PO 25 mg BEDTIME PRN Administration Anxiety Lactase 1 tab 02/26/21 17:00 03/03/21 18:25 Lactase Tablet PO Not Given TIDWM OLYA Levothyroxine Sodium 50 mcg 02/27/21 06:30 03/03/21 08:46 Levothyroxine Sodium 50 Mcg Tablet PO 50 mcg DAILY@0630 OLYA Administration [place] Carbonate 900 mg 02/26/21 21:00 03/03/21 21:15 [place] Carbonate 300 Mg Capsule PO 900 mg BEDTIME OLYA Administration Loratadine 10 mg 02/27/21 09:00 03/03/21 08:45 Loratadine 10 Mg Tablet PO 10 mg DAILY OLYA Administration Magnesium Hydroxide 30 ml 02/26/21 13:14 Milk Of Magnesia 30 Ml Oral.Susp PO DAILY PRN Constipation Nicotine Polacrilex 2 mg 02/26/21 13:14 Nicotine Polacrilex 2 Mg Gum BUCCAL Q2H PRN Nicotine Cravings Oxybutynin Chloride 10 mg 02/27/21 09:00 03/03/21 08:45 Oxybutynin Chloride Er 5 Mg Tab.Er.24 PO 10 mg DAILY OLYA Administration Sertraline HCl 150 mg 02/27/21 09:00 03/03/21 08:45 Sertraline Hcl 50 Mg Tablet PO 150 mg DAILY OLYA Administration Trazodone HCl 50 mg 02/26/21 13:14 Trazodone Hcl 50 Mg Tablet PO BEDTIME PRN Insomnia Allergies Allergies Allergy/AdvReac Type Severity Reaction Status Date / Time No Known Allergies Allergy Unverified 02/26/21 15:41 Assessment & Plan Assessment & Plan (1) Schizoaffective disorder, bipolar type: Status: Acute Code(s): F25.0 - Schizoaffective disorder, bipolar type Assessment and Plan: restarted/continued outpt meds. check levels after 5 days (03/03). verify compliance. (2) PTSD (post-traumatic stress disorder): Status: Acute Code(s): F43.10 - Post-traumatic stress disorder, unspecified Assessment and Plan: continue/restart outpt medications regimen. Greater than 50% of the session was spent on counseling and/or coordination of care Reason for contiued inpatient stay Substantial Risk for: inability to function
[2021-03-03 07:26] LABS: MANUAL DIFF FLAG NO
[2021-03-03 07:31] LABS: Basophils Percent Auto 0.2 % (0-2); Eosinophils Absolute Auto 0.2 X10*3/uL (0.0-0.4); Eosinophils Percent Auto 2.9 % (0-4); Hemoglobin 13.2 g/dl (12.0-16.0); Imm Gran Abs Auto 0.04 X10*3/uL (0.00-0.03); Imm Gran Pct Auto 0.6 % (0.0-0.4); Lymphocytes Absolute Auto 1.9 X10*3/uL (1.2-4.9); Mean Corpuscular HGB Conc 30.7 g/dl (31.0-35.0); Mean Corpuscular Hemoglobin 30.2 pg (27.0-33.0); Mean Corpuscular Volume 98.4 fL (80-98); Mean Platelet Volume 9.8 fL (9.4-12.3); Monocytes Absolute Auto 0.6 X10*3/uL (0.1-1.2); Monocytes Percent Auto 10.2 % (2-11); Neutrophils Absolute Auto 3.5 X10*3/uL (2.0-8.3); Neutrophils Percent Auto 56.1 % (45-73); Platelet Count 276 X10*3/uL (160-400); Red Blood Count 4.37 X10*6/uL (4.20-5.50); Red Cell Distribution Width 12.5 % (11.0-16.0); White Blood Count 6.2 X10*3/uL (4.8-10.8)
[2021-03-03 07:50] LABS: Ammonia 36 umol/L (13-55)
[2021-03-03 07:56] LABS: Alanine Aminotransferase 21 U/L (0-31); Albumin Level 4.3 g/dL (3.5-5.0); Alkaline Phosphatase 61 U/L (39-117); Anion Gap 13 (12-20); Aspartate Amino Transferase 16 U/L (5-31); Bilirubin Direct < 0.2 mg/dL (0.0-0.5); Bilirubin Total 0.5 mg/dL (0.0-1.0); Blood Urea Nitrogen 16 mg/dL (9-16); Calcium 10.4 mg/dL (8.4-10.2); Carbon Dioxide 26 mmol/L (22-29); Chloride 108 mmol/L (96-108); Estimated Glomerular Filt Rate > 60; Glucose Random 87 mg/dL (60-115); Potassium 4.7 mmol/L (3.3-5.1); Sodium 142 mmol/L (135-145); Total Protein 7.1 g/dL (6.5-8.0)
[2021-03-03 08:02] LABS: Valproate 86.6 mcg/mL (50.0-100.0)
[2021-03-03 08:43] VITALS: BP 120/78; PULSE 74; RESP 18; TEMP 36.7
[2021-03-03] MEDS: Docusate Sodium 100 MG CAPSULE PO ×2 (08:44→21:15)
[2021-03-03] MEDS: Sertraline HCL 50 MG TABLET 150 MG PO (08:45)
[2021-03-03] MEDS: Lactase TABLET 1 TAB PO (08:45)
[2021-03-03] MEDS: HaloperidoL 5 MG TABLET PO (08:45)
[2021-03-03] MEDS: Loratadine 10 MG TABLET PO (08:45)
[2021-03-03] MEDS: Benztropine Mesylate 1 MG TABLET 2 MG PO ×2 (08:45→21:15)
[2021-03-03] MEDS: ARIPiprazole 30 MG TABLET PO (08:45)
[2021-03-03] MEDS: clonazePAM 0.5 MG TABLET PO (08:45)
[2021-03-03] MEDS: Levothyroxine Sodium 50 MCG TABLET PO (08:46)
[2021-03-03 10:46] LABS: Calcium 10.4 mg/dL (8.4-10.2)
[2021-03-03 11:28] LABS: Folate 16.1 ng/mL (> or = 4.0); Vitamin B12 490 pg/mL (200-900)
--- NOTE | 2021-03-03 13:33 | PC.NURSE ---
Pt states she does not smoke when asked.
[2021-03-03 15:22] LABS: Glucose Urine UA NEG (NEG); Leukocyte Esterase Urine NEG (NEG); Nitrite Urine NEG (NEG); PH 6.5 (5.0-8.0); Urine Blood NEG (NEG); Urine Ketones NEG (NEG); Urine Protein NEG (NEG-TRACE)
[2021-03-03 15:25] LABS: Appearance Urine HAZY; Color Urine YELLOW
[2021-03-03 18:00] VITALS: BP 132/88; PULSE 75; RESP 18; TEMP 37.1; O2SAT 92
[2021-03-03] MEDS: Lithium Carbonate 300 MG CAPSULE 900 MG PO (21:15)
[2021-03-03] MEDS: Divalproex Sodium ER 250 MG TAB.ER.24H PO (21:15)
[2021-03-03] MEDS: HaloperidoL 5 MG TABLET 15 MG PO (21:15)
[2021-03-03] MEDS: cloNIDine HCL 0.1 MG TABLET PO (21:15)
[2021-03-03] MEDS: Divalproex Sodium ER 500 MG TAB.ER.24H 1000 MG PO (21:16)
[2021-03-04 06:00] VITALS: BP 99/62; PULSE 69; RESP 16; TEMP 36.6; O2SAT 97
[2021-03-04 07:02] LABS: Lithium 1.49 mmol/L (0.60-1.20)
--- NOTE | 2021-03-04 11:05 | P.PNPSI_ITS ---
Subjective Subjective Date of Service: 03/04/21 Reason For Visit: Schizophrenia Interim History: Pt lying in bed, mostly resting, does respond when her name is called. she is able to say she is OK, but then adds she is scared. she is unable to elaborate intelligibly. MD encourages her to be up and have some breakfast, informing her the tray is at her desk. she indicates she plans to have breakfast. she has no other questions or words for MD and was noted not to have been RIS when MD entered the room. per staff, some contact was had with guardian, who has informed staff that a nomi's order exists. further attempts to contact guardian to obtain the order have been unsuccessful. not attending groups, incontinent last night. happy, singing in her room, calling male staff steve. slept well overnight. Pt requires significant assistance from staff to care for self. Mental Status Exam Mental Status Exam Narrative: Appearance: wearing hospital gown, resting in bed, in NAD Behavior: calm Psychomotor: no PMA/PMR Speech: mumbles at times,delayed response rate,soft volume, minimally spontaneous TP: disorganized TC: mostly unintelligible Mood: okay Affect:somnolent SI:none voiced HI:none voiced Diagnostics Vital Signs (24Hr): Vital Signs - 24 hr 03/03/21 18:00 03/04/21 06:00 Temperature 98.7 F 97.9 F Pulse Rate 75 69 Respiratory Rate 18 16 Blood Pressure 132/88 99/62 Pulse Oximetry 92 97 Labs Results: 03/03/21 07:03 03/03/21 07:03 Labs: Laboratory Results - last 48 hr 03/03/21 03/03/21 03/03/21 07:03 07:03 07:03 WBC 6.2 RBC 4.37 Hgb 13.2 Hct 43.0 MCV 98.4 H MCH 30.2 MCHC 30.7 L RDW 12.5 Plt Count 276 MPV 9.8 Immature Gran % (Auto) 0.6 H Neut % (Auto) 56.1 Lymph % (Auto) 30.0 [place] % (Auto) 10.2 Eos % (Auto) 2.9 Baso % (Auto) 0.2 Lymph # (Auto) 1.9 [place] # (Auto) 0.6 Eos # (Auto) 0.2 Baso # (Auto) 0.0 Abs Immat Gran (auto) 0.04 H Absolute Neuts (auto) 3.5 Absolute Nucleated RBC 0.000 Nucleated RBC % (auto) 0.0 Sodium 142 Potassium 4.7 Chloride 108 Carbon Dioxide 26 Anion Gap 13 BUN 16 Creatinine 0.80 Estim Creat Clear Calc TNP Estimated GFR > 60 Random Glucose 87 Calcium 10.4 H Total Bilirubin 0.5 Direct Bilirubin < 0.2 AST 16 ALT 21 Alkaline Phosphatase 61 Ammonia 36 Total Protein 7.1 Albumin 4.3 Vitamin B12 Folate Urine Color Urine Appearance Urine pH Ur Specific [place] Urine Protein Urine Glucose (UA) Urine Ketones Urine Blood Urine Nitrite Ur Leukocyte Esterase Valproic Acid 86.6 [place] 03/03/21 03/03/21 03/03/21 07:03 07:03 15:07 WBC RBC Hgb Hct MCV MCH MCHC RDW Plt Count MPV Immature Gran % (Auto) Neut % (Auto) Lymph % (Auto) [place] % (Auto) Eos % (Auto) Baso % (Auto) Lymph # (Auto) [place] # (Auto) Eos # (Auto) Baso # (Auto) Abs Immat Gran (auto) Absolute Neuts (auto) Absolute Nucleated RBC Nucleated RBC % (auto) Sodium Potassium Chloride Carbon Dioxide Anion Gap BUN Creatinine Estim Creat Clear Calc Estimated GFR Random Glucose Calcium 10.4 H Total Bilirubin Direct Bilirubin AST ALT Alkaline Phosphatase Ammonia Total Protein Albumin Vitamin B12 490 Folate 16.1 Urine Color YELLOW Urine Appearance HAZY Urine pH 6.5 Ur Specific [place] 1.020 Urine Protein NEG Urine Glucose (UA) NEG Urine Ketones NEG Urine Blood NEG Urine Nitrite NEG Ur Leukocyte Esterase NEG Valproic Acid [place] 03/04/21 06:07 WBC RBC Hgb Hct MCV MCH MCHC RDW Plt Count MPV Immature Gran % (Auto) Neut % (Auto) Lymph % (Auto) [place] % (Auto) Eos % (Auto) Baso % (Auto) Lymph # (Auto) [place] # (Auto) Eos # (Auto) Baso # (Auto) Abs Immat Gran (auto) Absolute Neuts (auto) Absolute Nucleated RBC Nucleated RBC % (auto) Sodium Potassium Chloride Carbon Dioxide Anion Gap BUN Creatinine Estim Creat Clear Calc Estimated GFR Random Glucose Calcium Total Bilirubin Direct Bilirubin AST ALT Alkaline Phosphatase Ammonia Total Protein Albumin Vitamin B12 Folate Urine Color Urine Appearance Urine pH Ur Specific [place] Urine Protein Urine Glucose (UA) Urine Ketones Urine Blood Urine Nitrite Ur Leukocyte Esterase Valproic Acid [place] 1.49 H Medications Medications Current Medications Generic Name Dose Route Start Last Admin Trade Name Freq PRN Reason Stop Dose Admin Acetaminophen 650 mg 02/26/21 13:14 Acetaminophen 325 Mg Tablet PO Q6H PRN Headache/Pain Mild Scale (1-3) [place] Hydroxide/Mg Hydroxide 30 ml 02/26/21 13:14 Magnesium Hydrox/Alum Hydrox 30 Ml Oral.Susp PO Q6H PRN Heartburn/Nausea Aripiprazole 30 mg 02/27/21 09:00 03/03/21 08:45 Aripiprazole 30 Mg Tablet PO 30 mg DAILY OLYA Administration Benztropine Mesylate 2 mg 02/26/21 21:00 03/03/21 21:15 Benztropine Mesylate 1 Mg Tablet PO 2 mg BID OLYA Administration Clonazepam 0.5 mg 03/04/21 09:00 Clonazepam 0.5 Mg Tablet PO BID OLYA Clonidine HCl 0.1 mg 02/26/21 21:00 03/03/21 21:15 Clonidine Hcl 0.1 Mg Tablet PO 0.1 mg BEDTIME OLYA Administration Protocol Divalproex Sodium 250 mg 02/26/21 21:00 03/03/21 21:15 Divalproex Sodium Er 250 Mg Tab.Er.24h PO 250 mg BEDTIME OLYA Administration Divalproex Sodium 1,000 mg 02/26/21 21:00 03/03/21 21:16 Divalproex Sodium Er 500 Mg Tab.Er.24h PO 1,000 mg BEDTIME OLYA Administration Docusate Sodium 100 mg 02/26/21 21:00 03/03/21 21:15 Docusate Sodium 100 Mg Capsule PO 100 mg BID OLYA Administration Haloperidol 5 mg 02/27/21 09:00 03/03/21 08:45 Haloperidol 5 Mg Tablet PO 5 mg DAILY OLYA Administration Haloperidol 15 mg 02/26/21 21:00 03/03/21 21:15 Haloperidol 5 Mg Tablet PO 15 mg BEDTIME OLYA Administration Hydroxyzine HCl 25 mg 02/26/21 13:14 02/27/21 03:36 Hydroxyzine Hcl 25 Mg Tablet PO 25 mg BEDTIME PRN Administration Anxiety Lactase 1 tab 02/26/21 17:00 03/03/21 18:25 Lactase Tablet PO Not Given TIDWM OLYA Levothyroxine Sodium 50 mcg 02/27/21 06:30 03/03/21 08:46 Levothyroxine Sodium 50 Mcg Tablet PO 50 mcg DAILY@0630 OLYA Administration [place] Carbonate 900 mg 02/26/21 21:00 03/03/21 21:15 [place] Carbonate 300 Mg Capsule PO 900 mg BEDTIME OLYA Administration Loratadine 10 mg 02/27/21 09:00 03/03/21 08:45 Loratadine 10 Mg Tablet PO 10 mg DAILY OLYA Administration Magnesium Hydroxide 30 ml 02/26/21 13:14 Milk Of Magnesia 30 Ml Oral.Susp PO DAILY PRN Constipation Nicotine Polacrilex 2 mg 02/26/21 13:14 Nicotine Polacrilex 2 Mg Gum BUCCAL Q2H PRN Nicotine Cravings Oxybutynin Chloride 10 mg 02/27/21 09:00 03/03/21 08:45 Oxybutynin Chloride Er 5 Mg Tab.Er.24 PO 10 mg DAILY OLYA Administration Sertraline HCl 150 mg 02/27/21 09:00 03/03/21 08:45 Sertraline Hcl 50 Mg Tablet PO 150 mg DAILY OLYA Administration Trazodone HCl 50 mg 02/26/21 13:14 Trazodone Hcl 50 Mg Tablet PO BEDTIME PRN Insomnia Allergies Allergies Allergy/AdvReac Type Severity Reaction Status Date / Time No Known Allergies Allergy Unverified 02/26/21 15:41 Assessment & Plan Assessment & Plan (1) Schizoaffective disorder, bipolar type: Status: Acute Code(s): F25.0 - Schizoaffective disorder, bipolar type Assessment and Plan: restarted/continued outpt meds. levels after 5 days (03/03) show VPA therapeutic at 87 and lithium supra-therapeutic at 1.49. lithium dosing decreased from 900 mg QHS to 750 mg QHS as of 03/04. ammonia WNL. recheck 03/09. as pt has been unable to sign in voluntarily due to lacking capacity, commitment paperwork will be filed today. continue to attempt to obtain nomi's order. (2) PTSD (post-traumatic stress disorder): Status: Acute Code(s): F43.10 - Post-traumatic stress disorder, unspecified Assessment and Plan: continued/restarted outpt medications regimen. Greater than 50% of the session was spent on counseling and/or coordination of care Reason for contiued inpatient stay Substantial Risk for: inability to function
[2021-03-04] MEDS: Sertraline HCL 50 MG TABLET 150 MG PO (12:41)
[2021-03-04] MEDS: Benztropine Mesylate 1 MG TABLET 2 MG PO ×2 (12:43→22:06)
[2021-03-04] MEDS: Lactase TABLET 1 TAB PO ×3 (12:43→18:45)
[2021-03-04] MEDS: HaloperidoL 5 MG TABLET PO (12:43)
[2021-03-04] MEDS: clonazePAM 0.5 MG TABLET PO ×2 (12:43→22:05)
[2021-03-04] MEDS: ARIPiprazole 30 MG TABLET PO (12:43)
[2021-03-04] MEDS: Loratadine 10 MG TABLET PO (12:43)
[2021-03-04] MEDS: Levothyroxine Sodium 50 MCG TABLET PO (12:43)
[2021-03-04 18:00] VITALS: BP 112/58; PULSE 81; RESP 18; TEMP 36.6; O2SAT 92
[2021-03-04] MEDS: Divalproex Sodium ER 250 MG TAB.ER.24H PO (20:39)
[2021-03-04] MEDS: Lithium Carbonate 300 MG CAPSULE 750 MG PO (20:40)
[2021-03-04] MEDS: Docusate Sodium 100 MG CAPSULE PO (20:40)
[2021-03-04 22:06] VITALS: BP 112/58; PULSE 81
[2021-03-04] MEDS: cloNIDine HCL 0.1 MG TABLET PO (22:06)
[2021-03-04] MEDS: Divalproex Sodium ER 500 MG TAB.ER.24H 1000 MG PO (22:07)
[2021-03-04] MEDS: HaloperidoL 5 MG TABLET 15 MG PO (22:07)
[2021-03-05 06:00] VITALS: BP 133/61; PULSE 89; RESP 28; TEMP 36.9; O2SAT 89
[2021-03-05 09:12] LABS: Calcium (PTHI) 10.1 mg/dL (8.6-10.2); PTHI 54 pg/mL (14-64)
[2021-03-05] MEDS: Lactase TABLET 1 TAB PO ×3 (09:17→18:43)
[2021-03-05] MEDS: Levothyroxine Sodium 50 MCG TABLET PO (09:17)
[2021-03-05] MEDS: clonazePAM 0.5 MG TABLET PO ×2 (09:18→21:18)
[2021-03-05] MEDS: ARIPiprazole 30 MG TABLET PO (09:24)
[2021-03-05] MEDS: Benztropine Mesylate 1 MG TABLET 2 MG PO ×2 (09:24→21:18)
[2021-03-05] MEDS: Loratadine 10 MG TABLET PO (09:25)
[2021-03-05] MEDS: HaloperidoL 5 MG TABLET PO (09:25)
[2021-03-05] MEDS: Sertraline HCL 50 MG TABLET 150 MG PO (09:25)
--- NOTE | 2021-03-05 12:33 | HO.PSYCHPN ---
Subjective Subjective Date of Service: 03/05/21 Reason For Visit: Schizophrenia Interim History: Pt lying in bed, apparently awake but resting, responds when her name is called. she is able to say she is OK, but then adds she is scared. as far as MD is able to make out, she is concerned bcse she believes someone has stolen her checks and the residential does not want her. she is unable to elaborate intelligibly. content appears to be disorganized and psychotic. attempts to communicate with MD but does not raise voice above a mumble when asked. dario order obtained by TARAN. per staff, isolative. had dinner and meds. initially refused meds but was coaxed into taking them. saying she is a baby, or a doll. Mental Status Exam Mental Status Exam Narrative: Appearance: wearing hospital gown, resting in bed, in NAD Behavior: calm Psychomotor: no PMA/PMR Speech: mumbles, delayed response rate, soft volume, more spontaneous TP: disorganized TC: mostly unintelligible Mood: okay Affect:somnolent SI:none voiced HI:none voiced Diagnostics Vital Signs (24Hr): Vital Signs - 24 hr 03/04/21 18:00 03/04/21 22:06 Temperature 97.8 F Pulse Rate 81 81 Respiratory Rate 18 Blood Pressure 112/58 L 112/58 L Pulse Oximetry 92 Labs Results: 03/03/21 07:03 03/03/21 07:03 Labs: Laboratory Results - last 48 hr 03/03/21 03/03/21 03/04/21 07:03 15:07 06:07 PTH Intact 54 Calcium (PTH Intact) 10.1 Urine Color YELLOW Urine Appearance HAZY Urine pH 6.5 Ur Specific [place] 1.020 Urine Protein NEG Urine Glucose (UA) NEG Urine Ketones NEG Urine Blood NEG Urine Nitrite NEG Ur Leukocyte Esterase NEG [place] 1.49 H Medications Medications Current Medications Generic Name Dose Route Start Last Admin Trade Name Freq PRN Reason Stop Dose Admin Acetaminophen 650 mg 02/26/21 13:14 Acetaminophen 325 Mg Tablet PO Q6H PRN Headache/Pain Mild Scale (1-3) Al Hydroxide/Mg Hydroxide 30 ml 02/26/21 13:14 Magnesium Hydrox/Alum Hydrox 30 Ml Oral.Susp PO Q6H PRN Heartburn/Nausea Aripiprazole 30 mg 02/27/21 09:00 03/05/21 09:24 Aripiprazole 30 Mg Tablet PO 30 mg DAILY OLYA Administration Benztropine Mesylate 2 mg 02/26/21 21:00 03/05/21 09:24 Benztropine Mesylate 1 Mg Tablet PO 2 mg BID OLYA Administration Clonazepam 0.5 mg 03/04/21 09:00 03/05/21 09:18 Clonazepam 0.5 Mg Tablet PO 0.5 mg BID OLYA Administration Clonidine HCl 0.1 mg 02/26/21 21:00 03/04/21 22:06 Clonidine Hcl 0.1 Mg Tablet PO 0.1 mg BEDTIME OLYA Administration Protocol Divalproex Sodium 250 mg 02/26/21 21:00 03/04/21 20:39 Divalproex Sodium Er 250 Mg Tab.Er.24h PO 250 mg BEDTIME OLYA Administration Divalproex Sodium 1,000 mg 02/26/21 21:00 03/04/21 22:07 Divalproex Sodium Er 500 Mg Tab.Er.24h PO 1,000 mg BEDTIME OLYA Administration Docusate Sodium 100 mg 02/26/21 21:00 03/05/21 10:56 Docusate Sodium 100 Mg Capsule PO Not Given BID OLYA Haloperidol 5 mg 02/27/21 09:00 03/05/21 09:25 Haloperidol 5 Mg Tablet PO 5 mg DAILY OLYA Administration Haloperidol 15 mg 02/26/21 21:00 03/04/21 22:07 Haloperidol 5 Mg Tablet PO 15 mg BEDTIME OLYA Administration Hydroxyzine HCl 25 mg 02/26/21 13:14 02/27/21 03:36 Hydroxyzine Hcl 25 Mg Tablet PO 25 mg BEDTIME PRN Administration Anxiety Lactase 1 tab 02/26/21 17:00 03/05/21 09:17 Lactase Tablet PO 1 tab TIDWM OLYA Administration Levothyroxine Sodium 50 mcg 02/27/21 06:30 03/05/21 09:17 Levothyroxine Sodium 50 Mcg Tablet PO 50 mcg DAILY@0630 OLYA Administration [place] Carbonate 750 mg 03/04/21 21:00 03/04/21 20:40 [place] Carbonate 300 Mg Capsule PO 750 mg BEDTIME OLYA Administration Loratadine 10 mg 02/27/21 09:00 03/05/21 09:25 Loratadine 10 Mg Tablet PO 10 mg DAILY OLYA Administration Magnesium Hydroxide 30 ml 02/26/21 13:14 Milk Of Magnesia 30 Ml Oral.Susp PO DAILY PRN Constipation Nicotine Polacrilex 2 mg 02/26/21 13:14 Nicotine Polacrilex 2 Mg Gum BUCCAL Q2H PRN Nicotine Cravings Oxybutynin Chloride 10 mg 02/27/21 09:00 03/05/21 09:26 Oxybutynin Chloride Er 5 Mg Tab.Er.24 PO 10 mg DAILY OLYA Administration Sertraline HCl 150 mg 02/27/21 09:00 03/05/21 09:25 Sertraline Hcl 50 Mg Tablet PO 150 mg DAILY OLYA Administration Trazodone HCl 50 mg 02/26/21 13:14 Trazodone Hcl 50 Mg Tablet PO BEDTIME PRN Insomnia Allergies Allergies Allergy/AdvReac Type Severity Reaction Status Date / Time No Known Allergies Allergy Unverified 02/26/21 15:41 Assessment & Plan Assessment & Plan (1) Schizoaffective disorder, bipolar type: Status: Acute Code(s): F25.0 - Schizoaffective disorder, bipolar type Assessment and Plan: restarted/continued outpt meds. levels after 5 days (03/03) show VPA therapeutic at 87 and lithium supra-therapeutic at 1.49. lithium dosing decreased from 900 mg QHS to 750 mg QHS as of 03/04. ammonia WNL. recheck lithium 03/09. as pt has been unable to sign in voluntarily due to lacking capacity, commitment paperwork was filed. obtained nomi's order. (2) PTSD (post-traumatic stress disorder): Status: Acute Code(s): F43.10 - Post-traumatic stress disorder, unspecified Assessment and Plan: continued/restarted outpt medications regimen. Greater than 50% of the session was spent on counseling and/or coordination of care Reason for contiued inpatient stay Substantial Risk for: inability to function and rapid decompensation
--- NOTE | 2021-03-05 14:03 | PC.NURSE ---
During 1:1 with staff, pt. was able to converse in small [id number] conversations, displaying expressive and receptive understanding.
[2021-03-05 18:00] VITALS: BP 123/63; PULSE 92; RESP 18; TEMP 36.9; O2SAT 95
[2021-03-05] MEDS: Lithium Carbonate 300 MG TABLET 750 MG PO (21:14)
[2021-03-05] MEDS: HaloperidoL 5 MG TABLET 15 MG PO (21:17)
[2021-03-05] MEDS: Divalproex Sodium ER 500 MG TAB.ER.24H 1000 MG PO (21:17)
[2021-03-05 21:18] VITALS: BP 123/63; PULSE 92
[2021-03-05] MEDS: Divalproex Sodium ER 250 MG TAB.ER.24H PO (21:18)
[2021-03-05] MEDS: cloNIDine HCL 0.1 MG TABLET PO (21:18)
[2021-03-05] MEDS: Docusate Sodium 100 MG CAPSULE PO (21:19)
[2021-03-06] MEDS: Levothyroxine Sodium 50 MCG TABLET PO (06:16)
[2021-03-06] MEDS: Docusate Sodium 100 MG CAPSULE PO ×2 (10:01→20:47)
[2021-03-06] MEDS: Loratadine 10 MG TABLET PO (10:01)
[2021-03-06] MEDS: clonazePAM 0.5 MG TABLET PO ×2 (10:02→20:47)
[2021-03-06] MEDS: Benztropine Mesylate 1 MG TABLET 2 MG PO ×2 (10:02→20:47)
[2021-03-06] MEDS: Sertraline HCL 50 MG TABLET 150 MG PO (10:02)
[2021-03-06] MEDS: HaloperidoL 5 MG TABLET PO (10:02)
[2021-03-06] MEDS: Lactase TABLET 1 TAB PO ×2 (10:03→16:35)
[2021-03-06] MEDS: ARIPiprazole 30 MG TABLET PO (10:03)
--- NOTE | 2021-03-06 11:44 | HO.PSYCHPN ---
Subjective Subjective Date of Service: 03/06/21 Reason For Visit: Schizophrenia Interim History: Pt lying in bed, apparently awake and talking to herself, responds when her name is called. she is much more clear and loud in her speech and organized in her thoughts than previously this admission. content appears more organized; level of psychosis unclear. she refers to MD as daddy, yet seems to acknowledge he is not her actual daddy in any true sense. states she is doing well and on being reminded to eat her breakfast, agrees. per staff, incontinent in the morning yesterday. eating well. RIS. happy and tearful both at times. Mental Status Exam Mental Status Exam Narrative: dressed in hospital mraibel, lying in bed talking to herself. no PMA/PMR. cooperative with interview. speech rapid, louder, nml prosody, better enunciated and more comprehensible. thoughts appear more salient and logical, affect more flexible, non-labile. mood OK, no SI/HI/AVH expressed. Diagnostics Vital Signs (24Hr): Vital Signs - 24 hr 03/05/21 18:00 03/05/21 21:18 Temperature 98.4 F Pulse Rate 92 92 Respiratory Rate 18 Blood Pressure 123/63 123/63 Pulse Oximetry 95 Labs Results: 03/03/21 07:03 03/03/21 07:03 Labs: Laboratory Results - last 48 hr 03/03/21 07:03 PTH Intact 54 Calcium (PTH Intact) 10.1 Medications Medications Current Medications Generic Name Dose Route Start Last Admin Trade Name Lonnieq PRN Reason Stop Dose Admin Acetaminophen 650 mg 02/26/21 13:14 Acetaminophen 325 Mg Tablet PO Q6H PRN Headache/Pain Mild Scale (1-3) Al Hydroxide/Mg Hydroxide 30 ml 02/26/21 13:14 Magnesium Hydrox/Alum Hydrox 30 Ml Oral.Susp PO Q6H PRN Heartburn/Nausea Aripiprazole 30 mg 02/27/21 09:00 03/06/21 10:03 Aripiprazole 30 Mg Tablet PO 30 mg DAILY OLYA Administration Benztropine Mesylate 2 mg 02/26/21 21:00 03/06/21 10:02 Benztropine Mesylate 1 Mg Tablet PO 2 mg BID OLYA Administration Clonazepam 0.5 mg 03/04/21 09:00 03/06/21 10:02 Clonazepam 0.5 Mg Tablet PO 0.5 mg BID OLYA Administration Clonidine HCl 0.1 mg 02/26/21 21:00 03/05/21 21:18 Clonidine Hcl 0.1 Mg Tablet PO 0.1 mg BEDTIME OLYA Administration Protocol Divalproex Sodium 250 mg 02/26/21 21:00 03/05/21 21:18 Divalproex Sodium Er 250 Mg Tab.Er.24h PO 250 mg BEDTIME OLYA Administration Divalproex Sodium 1,000 mg 02/26/21 21:00 03/05/21 21:17 Divalproex Sodium Er 500 Mg Tab.Er.24h PO 1,000 mg BEDTIME OLYA Administration Docusate Sodium 100 mg 02/26/21 21:00 03/06/21 10:01 Docusate Sodium 100 Mg Capsule PO 100 mg BID OLYA Administration Haloperidol 5 mg 02/27/21 09:00 03/06/21 10:02 Haloperidol 5 Mg Tablet PO 5 mg DAILY OLYA Administration Haloperidol 15 mg 02/26/21 21:00 03/05/21 21:17 Haloperidol 5 Mg Tablet PO 15 mg BEDTIME OLYA Administration Hydroxyzine HCl 25 mg 02/26/21 13:14 02/27/21 03:36 Hydroxyzine Hcl 25 Mg Tablet PO 25 mg BEDTIME PRN Administration Anxiety Lactase 1 tab 02/26/21 17:00 03/06/21 10:03 Lactase Tablet PO 1 tab TIDWM OLYA Administration Levothyroxine Sodium 50 mcg 02/27/21 06:30 03/06/21 06:16 Levothyroxine Sodium 50 Mcg Tablet PO 50 mcg DAILY@0630 OLYA Administration [place] Carbonate 750 mg 03/05/21 21:00 03/05/21 21:14 [place] Carbonate 300 Mg Tablet PO 750 mg BEDTIME OLYA Administration Loratadine 10 mg 02/27/21 09:00 03/06/21 10:01 Loratadine 10 Mg Tablet PO 10 mg DAILY OLYA Administration Magnesium Hydroxide 30 ml 02/26/21 13:14 Milk Of Magnesia 30 Ml Oral.Susp PO DAILY PRN Constipation Nicotine Polacrilex 2 mg 02/26/21 13:14 Nicotine Polacrilex 2 Mg Gum BUCCAL Q2H PRN Nicotine Cravings Oxybutynin Chloride 10 mg 02/27/21 09:00 03/06/21 10:02 Oxybutynin Chloride Er 5 Mg Tab.Er.24 PO 10 mg DAILY OLYA Administration Sertraline HCl 150 mg 02/27/21 09:00 03/06/21 10:02 Sertraline Hcl 50 Mg Tablet PO 150 mg DAILY OLYA Administration Trazodone HCl 50 mg 02/26/21 13:14 Trazodone Hcl 50 Mg Tablet PO BEDTIME PRN Insomnia Allergies Allergies Allergy/AdvReac Type Severity Reaction Status Date / Time No Known Allergies Allergy Unverified 02/26/21 15:41 Assessment & Plan Assessment & Plan (1) Schizoaffective disorder, bipolar type: Status: Acute Code(s): F25.0 - Schizoaffective disorder, bipolar type Assessment and Plan: restarted/continued outpt meds. levels after 5 days (03/03) show VPA therapeutic at 87 and lithium supra-therapeutic at 1.49. lithium dosing decreased from 900 mg QHS to 750 mg QHS as of 03/04. ammonia WNL. recheck lithium 03/09. as pt has been unable to sign in voluntarily due to lacking capacity, commitment paperwork was filed. obtained nomi's order. (2) PTSD (post-traumatic stress disorder): Status: Acute Code(s): F43.10 - Post-traumatic stress disorder, unspecified Assessment and Plan: continued/restarted outpt medications regimen. Greater than 50% of the session was spent on counseling and/or coordination of care Reason for contiued inpatient stay Substantial Risk for: inability to function and rapid decompensation
[2021-03-06 18:00] VITALS: BP 139/82; PULSE 88; RESP 18; TEMP 36.7; O2SAT 96
[2021-03-06] MEDS: HaloperidoL 5 MG TABLET 15 MG PO (20:47)
[2021-03-06] MEDS: cloNIDine HCL 0.1 MG TABLET PO (20:47)
[2021-03-06] MEDS: Divalproex Sodium ER 250 MG TAB.ER.24H PO (20:47)
[2021-03-06] MEDS: Divalproex Sodium ER 500 MG TAB.ER.24H 1000 MG PO (20:48)
[2021-03-06] MEDS: Lithium Carbonate 300 MG TABLET 750 MG PO (20:48)
[2021-03-07 08:40] VITALS: BP 000/00; PULSE 81; RESP 16; TEMP 36.4; O2SAT 99
[2021-03-07] MEDS: Levothyroxine Sodium 50 MCG TABLET PO (09:31)
[2021-03-07] MEDS: Loratadine 10 MG TABLET PO (09:31)
[2021-03-07] MEDS: ARIPiprazole 30 MG TABLET PO (09:31)
[2021-03-07] MEDS: Sertraline HCL 50 MG TABLET 150 MG PO (09:31)
[2021-03-07] MEDS: Lactase TABLET 1 TAB PO ×3 (09:32→18:10)
[2021-03-07] MEDS: Benztropine Mesylate 1 MG TABLET 2 MG PO ×2 (09:32→21:29)
[2021-03-07] MEDS: clonazePAM 0.5 MG TABLET PO ×2 (09:32→21:27)
[2021-03-07] MEDS: HaloperidoL 5 MG TABLET PO (09:33)
[2021-03-07] MEDS: Docusate Sodium 100 MG CAPSULE PO ×2 (09:33→21:27)
--- NOTE | 2021-03-07 16:21 | HO.PSYCHPN ---
Subjective Subjective Date of Service: 03/07/21 Reason For Visit: Schizophrenia Interim History: Pt lying in bed with face showing. Mumbled responses were hard to follow. Staff report ongoing regression but no new behaviors. Ct plan. Review of Systems Review of Systems unable to obtain Mental Status Exam Mental Status Exam Narrative: dressed in hospital maribel, lying in bed talking to herself. no PMA/PMR. cooperative with interview. speech rapid, louder, nml prosody, better enunciated and more comprehensible. thoughts appear more salient and logical, affect more flexible, non-labile. mood OK, no SI/HI/AVH expressed. Diagnostics Vital Signs (24Hr): Vital Signs - 24 hr 03/06/21 18:00 03/07/21 08:40 Temperature 98.1 F 97.6 F Pulse Rate 88 81 Respiratory Rate 18 16 Blood Pressure 139/82 000/00 L Pulse Oximetry 96 99 Labs Results: 03/03/21 07:03 03/03/21 07:03 Medications Medications Current Medications Generic Name Dose Route Start Last Admin Trade Name Freq PRN Reason Stop Dose Admin Acetaminophen 650 mg 02/26/21 13:14 Acetaminophen 325 Mg Tablet PO Q6H PRN Headache/Pain Mild Scale (1-3) Al Hydroxide/Mg Hydroxide 30 ml 02/26/21 13:14 Magnesium Hydrox/Alum Hydrox 30 Ml Oral.Susp PO Q6H PRN Heartburn/Nausea Aripiprazole 30 mg 02/27/21 09:00 03/07/21 09:31 Aripiprazole 30 Mg Tablet PO 30 mg DAILY OLYA Administration Benztropine Mesylate 2 mg 02/26/21 21:00 03/07/21 09:32 Benztropine Mesylate 1 Mg Tablet PO 2 mg BID OLYA Administration Clonazepam 0.5 mg 03/04/21 09:00 03/07/21 09:32 Clonazepam 0.5 Mg Tablet PO 0.5 mg BID OLYA Administration Clonidine HCl 0.1 mg 02/26/21 21:00 03/06/21 20:47 Clonidine Hcl 0.1 Mg Tablet PO 0.1 mg BEDTIME OLYA Administration Protocol Divalproex Sodium 250 mg 02/26/21 21:00 03/06/21 20:47 Divalproex Sodium Er 250 Mg Tab.Er.24h PO 250 mg BEDTIME OLYA Administration Divalproex Sodium 1,000 mg 02/26/21 21:00 03/06/21 20:48 Divalproex Sodium Er 500 Mg Tab.Er.24h PO 1,000 mg BEDTIME OLYA Administration Docusate Sodium 100 mg 02/26/21 21:00 03/07/21 09:33 Docusate Sodium 100 Mg Capsule PO 100 mg BID OLYA Administration Haloperidol 5 mg 02/27/21 09:00 03/07/21 09:33 Haloperidol 5 Mg Tablet PO 5 mg DAILY OLYA Administration Haloperidol 15 mg 02/26/21 21:00 03/06/21 20:47 Haloperidol 5 Mg Tablet PO 15 mg BEDTIME OLYA Administration Hydroxyzine HCl 25 mg 02/26/21 13:14 02/27/21 03:36 Hydroxyzine Hcl 25 Mg Tablet PO 25 mg BEDTIME PRN Administration Anxiety Lactase 1 tab 02/26/21 17:00 03/07/21 12:08 Lactase Tablet PO 1 tab TIDWM OLYA Administration Levothyroxine Sodium 50 mcg 02/27/21 06:30 03/07/21 09:31 Levothyroxine Sodium 50 Mcg Tablet PO 50 mcg DAILY@0630 OLYA Administration [place] Carbonate 750 mg 03/05/21 21:00 03/06/21 20:48 [place] Carbonate 300 Mg Tablet PO 750 mg BEDTIME OLYA Administration Loratadine 10 mg 02/27/21 09:00 03/07/21 09:31 Loratadine 10 Mg Tablet PO 10 mg DAILY OLYA Administration Magnesium Hydroxide 30 ml 02/26/21 13:14 Milk Of Magnesia 30 Ml Oral.Susp PO DAILY PRN Constipation Nicotine Polacrilex 2 mg 02/26/21 13:14 Nicotine Polacrilex 2 Mg Gum BUCCAL Q2H PRN Nicotine Cravings Oxybutynin Chloride 10 mg 02/27/21 09:00 03/07/21 09:31 Oxybutynin Chloride Er 5 Mg Tab.Er.24 PO 10 mg DAILY OLYA Administration Sertraline HCl 150 mg 02/27/21 09:00 03/07/21 09:31 Sertraline Hcl 50 Mg Tablet PO 150 mg DAILY OLYA Administration Trazodone HCl 50 mg 02/26/21 13:14 Trazodone Hcl 50 Mg Tablet PO BEDTIME PRN Insomnia Allergies Allergies Allergy/AdvReac Type Severity Reaction Status Date / Time No Known Allergies Allergy Unverified 02/26/21 15:41 Assessment & Plan Assessment & Plan (1) Schizoaffective disorder, bipolar type: Status: Acute Code(s): F25.0 - Schizoaffective disorder, bipolar type Assessment and Plan: restarted/continued outpt meds. levels after 5 days (03/03) show VPA therapeutic at 87 and lithium supra-therapeutic at 1.49. lithium dosing decreased from 900 mg QHS to 750 mg QHS as of 03/04. ammonia WNL. recheck lithium 03/09. as pt has been unable to sign in voluntarily due to lacking capacity, commitment paperwork was filed. obtained nomi's order. Ct plan per Dr Santiago (2) PTSD (post-traumatic stress disorder): Status: Acute Code(s): F43.10 - Post-traumatic stress disorder, unspecified Assessment and Plan: continued/restarted outpt medications regimen. Greater than 50% of the session was spent on counseling and/or coordination of care Reason for contiued inpatient stay Substantial Risk for: rapid decompensation
[2021-03-07 18:00] VITALS: BP 146/82; PULSE 82; RESP 16; TEMP 36.8; O2SAT 96
[2021-03-07] MEDS: HaloperidoL 5 MG TABLET 15 MG PO (21:27)
[2021-03-07] MEDS: Divalproex Sodium ER 500 MG TAB.ER.24H 1000 MG PO (21:28)
[2021-03-07] MEDS: Lithium Carbonate 300 MG TABLET 750 MG PO (21:28)
[2021-03-07] MEDS: Divalproex Sodium ER 250 MG TAB.ER.24H PO (21:28)
[2021-03-07 21:33] VITALS: BP 114/67; PULSE 84
[2021-03-07] MEDS: cloNIDine HCL 0.1 MG TABLET PO (21:33)
--- NOTE | 2021-03-08 07:29 | P.PNPSI_ITS ---
Subjective Subjective Date of Service: 03/08/21 Reason For Visit: Schizophrenia Interim History: 03/07:Pt lying in bed with face showing. Mumbled responses were hard to follow. Staff report ongoing regression but no new behaviors. Ct plan. 03/08: No change. Was incontinent of urine last night. Mostly in bed. Review of Systems Review of Systems unable to obtain Mental Status Exam Mental Status Exam Narrative: dressed in hospital maribel, lying in bed talking to herself. no PMA/PMR. cooperative with interview. speech rapid, louder, nml prosody, better enunciated and more comprehensible. thoughts appear more salient and logical, affect more flexible, non-labile. mood OK, no SI/HI/AVH expressed. Diagnostics Vital Signs (24Hr): Vital Signs - 24 hr 03/07/21 08:40 03/07/21 18:00 03/07/21 21:33 Temperature 97.6 F 98.2 F Pulse Rate 81 82 84 Respiratory Rate 16 16 Blood Pressure 000/00 L 146/82 H 114/67 Pulse Oximetry 99 96 Labs Results: 03/03/21 07:03 03/03/21 07:03 Medications Medications Current Medications Generic Name Dose Route Start Last Admin Trade Name Freq PRN Reason Stop Dose Admin Acetaminophen 650 mg 02/26/21 13:14 Acetaminophen 325 Mg Tablet PO Q6H PRN Headache/Pain Mild Scale (1-3) Al Hydroxide/Mg Hydroxide 30 ml 02/26/21 13:14 Magnesium Hydrox/Alum Hydrox 30 Ml Oral.Susp PO Q6H PRN Heartburn/Nausea Aripiprazole 30 mg 02/27/21 09:00 03/07/21 09:31 Aripiprazole 30 Mg Tablet PO 30 mg DAILY OLYA Administration Benztropine Mesylate 2 mg 02/26/21 21:00 03/07/21 21:29 Benztropine Mesylate 1 Mg Tablet PO 2 mg BID OLYA Administration Clonazepam 0.5 mg 03/04/21 09:00 03/07/21 21:27 Clonazepam 0.5 Mg Tablet PO 0.5 mg BID OLYA Administration Clonidine HCl 0.1 mg 02/26/21 21:00 03/07/21 21:33 Clonidine Hcl 0.1 Mg Tablet PO 0.1 mg BEDTIME OLYA Administration Protocol Divalproex Sodium 250 mg 02/26/21 21:00 03/07/21 21:28 Divalproex Sodium Er 250 Mg Tab.Er.24h PO 250 mg BEDTIME OLYA Administration Divalproex Sodium 1,000 mg 02/26/21 21:00 03/07/21 21:28 Divalproex Sodium Er 500 Mg Tab.Er.24h PO 1,000 mg BEDTIME OLYA Administration Docusate Sodium 100 mg 02/26/21 21:00 03/07/21 21:27 Docusate Sodium 100 Mg Capsule PO 100 mg BID OLYA Administration Haloperidol 5 mg 02/27/21 09:00 03/07/21 09:33 Haloperidol 5 Mg Tablet PO 5 mg DAILY OLYA Administration Haloperidol 15 mg 02/26/21 21:00 03/07/21 21:27 Haloperidol 5 Mg Tablet PO 15 mg BEDTIME OLYA Administration Hydroxyzine HCl 25 mg 02/26/21 13:14 02/27/21 03:36 Hydroxyzine Hcl 25 Mg Tablet PO 25 mg BEDTIME PRN Administration Anxiety Lactase 1 tab 02/26/21 17:00 03/07/21 18:10 Lactase Tablet PO 1 tab TIDWM OLYA Administration Levothyroxine Sodium 50 mcg 02/27/21 06:30 03/07/21 09:31 Levothyroxine Sodium 50 Mcg Tablet PO 50 mcg DAILY@0630 OLYA Administration [place] Carbonate 750 mg 03/05/21 21:00 03/07/21 21:28 [place] Carbonate 300 Mg Tablet PO 750 mg BEDTIME OLYA Administration Loratadine 10 mg 02/27/21 09:00 03/07/21 09:31 Loratadine 10 Mg Tablet PO 10 mg DAILY OLYA Administration Magnesium Hydroxide 30 ml 02/26/21 13:14 Milk Of Magnesia 30 Ml Oral.Susp PO DAILY PRN Constipation Nicotine Polacrilex 2 mg 02/26/21 13:14 Nicotine Polacrilex 2 Mg Gum BUCCAL Q2H PRN Nicotine Cravings Oxybutynin Chloride 10 mg 02/27/21 09:00 03/07/21 09:31 Oxybutynin Chloride Er 5 Mg Tab.Er.24 PO 10 mg DAILY OLYA Administration Sertraline HCl 150 mg 02/27/21 09:00 03/07/21 09:31 Sertraline Hcl 50 Mg Tablet PO 150 mg DAILY OLYA Administration Trazodone HCl 50 mg 02/26/21 13:14 Trazodone Hcl 50 Mg Tablet PO BEDTIME PRN Insomnia Allergies Allergies Allergy/AdvReac Type Severity Reaction Status Date / Time No Known Allergies Allergy Unverified 02/26/21 15:41 Assessment & Plan Assessment & Plan (1) Schizoaffective disorder, bipolar type: Status: Acute Code(s): F25.0 - Schizoaffective disorder, bipolar type Assessment and Plan: restarted/continued outpt meds. levels after 5 days (03/03) show VPA therapeutic at 87 and lithium supra-therapeutic at 1.49. lithium dosing decreased from 900 mg QHS to 750 mg QHS as of 03/04. ammonia WNL. recheck lithium 03/09. as pt has been unable to sign in voluntarily due to lacking capacity, commitment paperwork was filed. obtained nomi's order. Ct plan per Dr Santiago (2) PTSD (post-traumatic stress disorder): Status: Acute Code(s): F43.10 - Post-traumatic stress disorder, unspecified Assessment and Plan: continued/restarted outpt medications regimen. Greater than 50% of the session was spent on counseling and/or coordination of care Reason for contiued inpatient stay Substantial Risk for: rapid decompensation
[2021-03-08 09:10] VITALS: BP 102/59; PULSE 60; RESP 18
[2021-03-08] MEDS: Sertraline HCL 50 MG TABLET 150 MG PO (09:39)
[2021-03-08] MEDS: Loratadine 10 MG TABLET PO (09:39)
[2021-03-08] MEDS: clonazePAM 0.5 MG TABLET PO ×2 (09:39→20:37)
[2021-03-08] MEDS: HaloperidoL 5 MG TABLET PO (09:39)
[2021-03-08] MEDS: Benztropine Mesylate 1 MG TABLET 2 MG PO ×2 (09:39→20:38)
[2021-03-08] MEDS: ARIPiprazole 30 MG TABLET PO (09:39)
[2021-03-08] MEDS: Lactase TABLET 1 TAB PO ×3 (09:40→17:04)
[2021-03-08] MEDS: Docusate Sodium 100 MG CAPSULE PO ×2 (09:40→20:37)
[2021-03-08] MEDS: Levothyroxine Sodium 50 MCG TABLET PO (09:40)
[2021-03-08 18:00] VITALS: BP 119/77; PULSE 86; RESP 16; TEMP 36.6; O2SAT 98
[2021-03-08] MEDS: Divalproex Sodium ER 500 MG TAB.ER.24H 1000 MG PO (20:36)
[2021-03-08] MEDS: Lithium Carbonate 300 MG TABLET 750 MG PO (20:36)
[2021-03-08] MEDS: Divalproex Sodium ER 250 MG TAB.ER.24H PO (20:37)
[2021-03-08] MEDS: HaloperidoL 5 MG TABLET 15 MG PO (20:37)
[2021-03-08 20:38] VITALS: BP 119/77; PULSE 86
[2021-03-08] MEDS: cloNIDine HCL 0.1 MG TABLET PO (20:38)
[2021-03-09] MEDS: Benztropine Mesylate 1 MG TABLET 2 MG PO ×2 (10:48→20:32)
[2021-03-09] MEDS: Lactase TABLET 1 TAB PO (10:49)
[2021-03-09] MEDS: Levothyroxine Sodium 50 MCG TABLET PO (10:49)
[2021-03-09] MEDS: Docusate Sodium 100 MG CAPSULE PO ×2 (10:50→20:33)
[2021-03-09] MEDS: clonazePAM 0.5 MG TABLET PO ×2 (10:50→20:32)
[2021-03-09] MEDS: Sertraline HCL 50 MG TABLET 150 MG PO (10:50)
[2021-03-09] MEDS: ARIPiprazole 30 MG TABLET PO (10:51)
[2021-03-09] MEDS: Loratadine 10 MG TABLET PO (10:51)
[2021-03-09] MEDS: HaloperidoL 5 MG TABLET PO (10:51)
--- NOTE | 2021-03-09 11:18 | HO.PSYCHPN ---
Subjective Subjective Date of Service: 03/09/21 Reason For Visit: Schizophrenia Interim History: pt found in her room sitting up in bed taking medications from nurse. she was far more engageable than at any other time of interaction with this MD. her eye contact was good and her speech was largely intelligible. she reported she was feeling well. she was able to tell MD that this is a hospital but she stated that [facility] and averred that the reason for her stay here is that she was . from discussion she appeared to be referring to a remote event, but her speech became mumbled and vague at that point in the conversation. she stated she wished to return to the senior living. she endorsed eating, sleeping, and getting along well with others on the unit. no other complaints or requests for MD. Mental Status Exam Mental Status Exam Narrative: dressed in hospital [facility], sitting in bed talking to nurse and taking medications. no PMA/PMR. good eye contact. cooperative with interview. speech rapid, louder, nml prosody, better enunciated and more comprehensible. thoughts appear more salient and logical. affect more flexible, non-labile. mood OK, no SI/HI/AVH expressed. Diagnostics Vital Signs (24Hr): Vital Signs - 24 hr 03/08/21 18:00 03/08/21 20:38 Temperature 98 F Pulse Rate 86 86 Respiratory Rate 16 Blood Pressure 119/77 119/77 Pulse Oximetry 98 Labs Results: 03/03/21 07:03 03/03/21 07:03 Medications Medications Current Medications Generic Name Dose Route Start Last Admin Trade Name Freq PRN Reason Stop Dose Admin Acetaminophen 650 mg 02/26/21 13:14 Acetaminophen 325 Mg Tablet PO Q6H PRN Headache/Pain Mild Scale (1-3) Al Hydroxide/Mg Hydroxide 30 ml 02/26/21 13:14 Magnesium Hydrox/Alum Hydrox 30 Ml Oral.Susp PO Q6H PRN Heartburn/Nausea Aripiprazole 30 mg 02/27/21 09:00 03/09/21 10:51 Aripiprazole 30 Mg Tablet PO 30 mg DAILY OLYA Administration Benztropine Mesylate 2 mg 02/26/21 21:00 03/09/21 10:48 Benztropine Mesylate 1 Mg Tablet PO 2 mg BID OLYA Administration Clonazepam 0.5 mg 03/04/21 09:00 03/09/21 10:50 Clonazepam 0.5 Mg Tablet PO 0.5 mg BID OLYA Administration Clonidine HCl 0.1 mg 02/26/21 21:00 03/08/21 20:38 Clonidine Hcl 0.1 Mg Tablet PO 0.1 mg BEDTIME OLYA Administration Protocol Divalproex Sodium 250 mg 02/26/21 21:00 03/08/21 20:37 Divalproex Sodium Er 250 Mg Tab.Er.24h PO 250 mg BEDTIME OLYA Administration Divalproex Sodium 1,000 mg 02/26/21 21:00 03/08/21 20:36 Divalproex Sodium Er 500 Mg Tab.Er.24h PO 1,000 mg BEDTIME OLYA Administration Docusate Sodium 100 mg 02/26/21 21:00 03/09/21 10:50 Docusate Sodium 100 Mg Capsule PO 100 mg BID OLYA Administration Haloperidol 5 mg 02/27/21 09:00 03/09/21 10:51 Haloperidol 5 Mg Tablet PO 5 mg DAILY OLYA Administration Haloperidol 15 mg 02/26/21 21:00 03/08/21 20:37 Haloperidol 5 Mg Tablet PO 15 mg BEDTIME OLYA Administration Hydroxyzine HCl 25 mg 02/26/21 13:14 02/27/21 03:36 Hydroxyzine Hcl 25 Mg Tablet PO 25 mg BEDTIME PRN Administration Anxiety Lactase 1 tab 02/26/21 17:00 03/09/21 10:49 Lactase Tablet PO 1 tab TIDWM OLYA Administration Levothyroxine Sodium 50 mcg 02/27/21 06:30 03/09/21 10:49 Levothyroxine Sodium 50 Mcg Tablet PO 50 mcg DAILY@0630 OLYA Administration [place] Carbonate 750 mg 03/05/21 21:00 03/08/21 20:36 [place] Carbonate 300 Mg Tablet PO 750 mg BEDTIME OLYA Administration Loratadine 10 mg 02/27/21 09:00 03/09/21 10:51 Loratadine 10 Mg Tablet PO 10 mg DAILY OLYA Administration Magnesium Hydroxide 30 ml 02/26/21 13:14 Milk Of Magnesia 30 Ml Oral.Susp PO DAILY PRN Constipation Nicotine Polacrilex 2 mg 02/26/21 13:14 Nicotine Polacrilex 2 Mg Gum BUCCAL Q2H PRN Nicotine Cravings Oxybutynin Chloride 10 mg 02/27/21 09:00 03/09/21 10:49 Oxybutynin Chloride Er 5 Mg Tab.Er.24 PO 10 mg DAILY OLYA Administration Sertraline HCl 150 mg 02/27/21 09:00 03/09/21 10:50 Sertraline Hcl 50 Mg Tablet PO 150 mg DAILY OLYA Administration Trazodone HCl 50 mg 02/26/21 13:14 Trazodone Hcl 50 Mg Tablet PO BEDTIME PRN Insomnia Allergies Allergies Allergy/AdvReac Type Severity Reaction Status Date / Time No Known Allergies Allergy Unverified 02/26/21 15:41 Assessment & Plan Assessment & Plan (1) Schizoaffective disorder, bipolar type: Status: Acute Code(s): F25.0 - Schizoaffective disorder, bipolar type Assessment and Plan: restarted/continued outpt meds. levels after 5 days (03/03) show VPA therapeutic at 87 and lithium supra-therapeutic at 1.49. lithium dosing decreased from 900 mg QHS to 750 mg QHS as of 03/04. ammonia WNL. recheck lithium 03/10. as pt has been unable to sign in voluntarily due to lacking capacity, commitment paperwork was filed. obtained nomi's order. will start on haldol decanoate, as spotting compliance with medication was reportedly the reason for recrudescence requiring admission. (2) PTSD (post-traumatic stress disorder): Status: Acute Code(s): F43.10 - Post-traumatic stress disorder, unspecified Assessment and Plan: continued/restarted outpt medications regimen. Greater than 50% of the session was spent on counseling and/or coordination of care Reason for contiued inpatient stay Substantial Risk for: inability to function and rapid decompensation
--- NOTE | 2021-03-09 13:00 | PC.NURSE ---
Pt. ate breakfast independently. eating 100% of her meal. Pt.s ADLs are to question as far as showering or washing up. Pt. states No I already washed up, thank you for that question .
[2021-03-09 15:14] LABS: Anion Gap 12 (12-20); Blood Urea Nitrogen 15 mg/dL (9-16); Calcium 9.5 mg/dL (8.4-10.2); Carbon Dioxide 26 mmol/L (22-29); Chloride 109 mmol/L (96-108); Estimated Glomerular Filt Rate > 60; Glucose Random 112 mg/dL (60-115); Potassium 4.4 mmol/L (3.3-5.1); Sodium 143 mmol/L (135-145)
[2021-03-09 15:29] LABS: Valproate 71.7 mcg/mL (50.0-100.0)
[2021-03-09] MEDS: Divalproex Sodium ER 250 MG TAB.ER.24H PO (20:32)
[2021-03-09] MEDS: HaloperidoL 5 MG TABLET 15 MG PO (20:33)
[2021-03-09] MEDS: Divalproex Sodium ER 500 MG TAB.ER.24H 1000 MG PO (20:33)
[2021-03-09] MEDS: Lithium Carbonate 300 MG TABLET 750 MG PO (20:34)
[2021-03-09 20:35] VITALS: BP 137/76; PULSE 80; RESP 18; TEMP 36.3; O2SAT 95
[2021-03-09] MEDS: cloNIDine HCL 0.1 MG TABLET PO (20:35)
[2021-03-10 08:09] LABS: Lithium 1.05 mmol/L (0.60-1.20)
[2021-03-10 08:17] LABS: Anion Gap 13 (12-20); Blood Urea Nitrogen 15 mg/dL (9-16); Calcium 9.9 mg/dL (8.4-10.2); Carbon Dioxide 27 mmol/L (22-29); Chloride 107 mmol/L (96-108); Estimated Glomerular Filt Rate > 60; Glucose Random 92 mg/dL (60-115); Potassium 4.7 mmol/L (3.3-5.1); Sodium 142 mmol/L (135-145)
[2021-03-10 08:31] VITALS: BP 125/73; PULSE 64; RESP 18; TEMP 36.3; O2SAT 100
[2021-03-10] MEDS: Docusate Sodium 100 MG CAPSULE PO (08:47)
[2021-03-10] MEDS: Sertraline HCL 50 MG TABLET 150 MG PO (08:48)
[2021-03-10] MEDS: Benztropine Mesylate 1 MG TABLET 2 MG PO (08:48)
[2021-03-10] MEDS: HaloperidoL 5 MG TABLET PO (08:48)
[2021-03-10] MEDS: clonazePAM 0.5 MG TABLET PO (08:49)
[2021-03-10] MEDS: Loratadine 10 MG TABLET PO (08:49)
[2021-03-10] MEDS: Lactase TABLET 1 TAB PO ×3 (08:49→17:42)
[2021-03-10] MEDS: Levothyroxine Sodium 50 MCG TABLET PO (08:49)
[2021-03-10] MEDS: ARIPiprazole 30 MG TABLET PO (08:49)
--- NOTE | 2021-03-10 10:59 | HO.PSYCHPN ---
Subjective Subjective Date of Service: 03/10/21 Reason For Visit: Schizophrenia Interim History: pt encountered in the [facility], walking with staff after having had a shower. looks at and acknowledges MD, but only maintains cursory contact before proceeding down the [facility] with staff. no requests or complaints. received haldol dec 100 mg IM x1 yesterday. per RN notes, slept well overnight. no behavioral issues or concerns. SW will attempt to have residential home staff come in for assessment of current presentation as compared to baseline. Mental Status Exam Mental Status Exam Narrative: dressed in [facility], walking in the [place] with staff. no PMA/PMR. good eye contact. cooperative with interview. speech rapid, soft, mumbled. thoughts unable to assess. affect more flexible, non-labile. no SI/HI/AVH expressed. Diagnostics Vital Signs (24Hr): Vital Signs - 24 hr 03/09/21 20:35 03/10/21 08:31 Temperature 97.4 F 97.3 F Pulse Rate 80 64 Respiratory Rate 18 18 Blood Pressure 137/76 125/73 Pulse Oximetry 95 100 Labs Results: 03/03/21 07:03 03/10/21 07:37 Labs: Laboratory Results - last 48 hr 03/09/21 03/09/21 03/10/21 14:33 14:33 07:37 Sodium 143 142 Potassium 4.4 4.7 Chloride 109 H 107 Carbon Dioxide 26 27 Anion Gap 12 13 BUN 15 15 Creatinine 0.76 0.70 Estim Creat Clear Calc TNP TNP Estimated GFR > 60 > 60 Random Glucose 112 92 Calcium 9.5 D 9.9 Valproic Acid 71.7 [place] 0.90 03/10/21 07:37 Sodium Potassium Chloride Carbon Dioxide Anion Gap BUN Creatinine Estim Creat Clear Calc Estimated GFR Random Glucose Calcium Valproic Acid [place] 1.05 Medications Medications Current Medications Generic Name Dose Route Start Last Admin Trade Name Freq PRN Reason Stop Dose Admin Acetaminophen 650 mg 02/26/21 13:14 Acetaminophen 325 Mg Tablet PO Q6H PRN Headache/Pain Mild Scale (1-3) Al Hydroxide/Mg Hydroxide 30 ml 02/26/21 13:14 Magnesium Hydrox/Alum Hydrox 30 Ml Oral.Susp PO Q6H PRN Heartburn/Nausea Aripiprazole 30 mg 02/27/21 09:00 03/10/21 08:49 Aripiprazole 30 Mg Tablet PO 30 mg DAILY OLYA Administration Benztropine Mesylate 2 mg 02/26/21 21:00 03/10/21 08:48 Benztropine Mesylate 1 Mg Tablet PO 2 mg BID OLYA Administration Clonazepam 0.5 mg 03/04/21 09:00 03/10/21 08:49 Clonazepam 0.5 Mg Tablet PO 0.5 mg BID OLYA Administration Clonidine HCl 0.1 mg 02/26/21 21:00 03/09/21 20:35 Clonidine Hcl 0.1 Mg Tablet PO 0.1 mg BEDTIME OLYA Administration Protocol Divalproex Sodium 250 mg 02/26/21 21:00 03/09/21 20:32 Divalproex Sodium Er 250 Mg Tab.Er.24h PO 250 mg BEDTIME OLYA Administration Divalproex Sodium 1,000 mg 02/26/21 21:00 03/09/21 20:33 Divalproex Sodium Er 500 Mg Tab.Er.24h PO 1,000 mg BEDTIME OLYA Administration Docusate Sodium 100 mg 02/26/21 21:00 03/10/21 08:47 Docusate Sodium 100 Mg Capsule PO 100 mg BID OLYA Administration Haloperidol 5 mg 02/27/21 09:00 03/10/21 08:48 Haloperidol 5 Mg Tablet PO 5 mg DAILY OLYA Administration Haloperidol 15 mg 02/26/21 21:00 03/09/21 20:33 Haloperidol 5 Mg Tablet PO 15 mg BEDTIME OLYA Administration Hydroxyzine HCl 25 mg 02/26/21 13:14 02/27/21 03:36 Hydroxyzine Hcl 25 Mg Tablet PO 25 mg BEDTIME PRN Administration Anxiety Lactase 1 tab 02/26/21 17:00 03/10/21 08:49 Lactase Tablet PO 1 tab TIDWM OLYA Administration Levothyroxine Sodium 50 mcg 02/27/21 06:30 03/10/21 08:49 Levothyroxine Sodium 50 Mcg Tablet PO 50 mcg DAILY@0630 OLYA Administration [place] Carbonate 750 mg 03/05/21 21:00 03/09/21 20:34 [place] Carbonate 300 Mg Tablet PO 750 mg BEDTIME OLYA Administration Loratadine 10 mg 02/27/21 09:00 03/10/21 08:49 Loratadine 10 Mg Tablet PO 10 mg DAILY OLYA Administration Magnesium Hydroxide 30 ml 02/26/21 13:14 Milk Of Magnesia 30 Ml Oral.Susp PO DAILY PRN Constipation Nicotine Polacrilex 2 mg 02/26/21 13:14 Nicotine Polacrilex 2 Mg Gum BUCCAL Q2H PRN Nicotine Cravings Oxybutynin Chloride 10 mg 02/27/21 09:00 03/10/21 08:49 Oxybutynin Chloride Er 5 Mg Tab.Er.24 PO 10 mg DAILY OLYA Administration Sertraline HCl 150 mg 02/27/21 09:00 03/10/21 08:48 Sertraline Hcl 50 Mg Tablet PO 150 mg DAILY OLYA Administration Trazodone HCl 50 mg 02/26/21 13:14 Trazodone Hcl 50 Mg Tablet PO BEDTIME PRN Insomnia Allergies Allergies Allergy/AdvReac Type Severity Reaction Status Date / Time No Known Allergies Allergy Unverified 02/26/21 15:41 Assessment & Plan Assessment & Plan (1) Schizoaffective disorder, bipolar type: Status: Acute Code(s): F25.0 - Schizoaffective disorder, bipolar type Assessment and Plan: restarted/continued outpt meds. levels after 5 days (03/03) show VPA therapeutic at 87 and lithium supra-therapeutic at 1.49. lithium dosing decreased from 900 mg QHS to 750 mg QHS as of 03/04. ammonia WNL. lithium 03/10 1.05. as pt has been unable to sign in voluntarily due to lacking capacity, commitment paperwork was filed. obtained nomi's order. haldol decanoate 100 mg was administered 03/10. pt's initial presentation may have been related to lithium toxicity. plan to give abilify maintenna prior to discharge. will ask residential staff to assess for closeness to baseline. (2) PTSD (post-traumatic stress disorder): Status: Acute Code(s): F43.10 - Post-traumatic stress disorder, unspecified Assessment and Plan: continued/restarted outpt medications regimen. Greater than 50% of the session was spent on counseling and/or coordination of care Reason for contiued inpatient stay Substantial Risk for: inability to function and rapid decompensation
[2021-03-10 20:30] VITALS: BP 103/58; PULSE 76; TEMP 36.6; O2SAT 95
[2021-03-11 00:50] VITALS: BP 103/58; PULSE 76
[2021-03-11] MEDS: Lactase TABLET 1 TAB PO ×3 (08:54→17:19)
[2021-03-11] MEDS: Levothyroxine Sodium 50 MCG TABLET PO (08:54)
[2021-03-11] MEDS: clonazePAM 0.5 MG TABLET PO ×2 (11:07→20:50)
[2021-03-11] MEDS: Loratadine 10 MG TABLET PO (11:07)
[2021-03-11] MEDS: Docusate Sodium 100 MG CAPSULE PO ×2 (11:07→20:50)
[2021-03-11] MEDS: Benztropine Mesylate 1 MG TABLET 2 MG PO ×2 (11:07→20:50)
[2021-03-11] MEDS: HaloperidoL 5 MG TABLET PO (11:07)
[2021-03-11] MEDS: ARIPiprazole 30 MG TABLET PO (11:07)
[2021-03-11] MEDS: Sertraline HCL 50 MG TABLET 150 MG PO (11:07)
--- NOTE | 2021-03-11 11:43 | HO.PSYCHPN ---
Subjective Subjective Date of Service: 03/11/21 Reason For Visit: Schizophrenia Interim History: per staff, pt refused her medications last night. per MAR review she did take them this morning, albeit late (1100). not attending groups, requires prompting for ADLs, appeared sedated in timothy. lying naked on her bed eves. worker from her snf coming to check her progress today. on interview with MD, less engageable than she has been the past few days, more mumbling in soft voice. appears tired and drops off to sleep easily during interview. Mental Status Exam Mental Status Exam Narrative: dressed in hospital [facility], lying in her bed sleeping, easily rousable to conversational voice. no PMA/PMR. poor eye contact. moderately cooperative with interview. speech rapid, soft, mumbled. thoughts unable to assess. affect more constricted, non-labile. no SI/HI/AVH expressed. Diagnostics Vital Signs (24Hr): Vital Signs - 24 hr 03/10/21 20:30 03/11/21 00:50 Temperature 98 F Pulse Rate 76 76 Blood Pressure 103/58 L 103/58 L Pulse Oximetry 95 Labs Results: 03/03/21 07:03 03/10/21 07:37 Labs: Laboratory Results - last 48 hr 03/09/21 03/09/21 03/10/21 14:33 14:33 07:37 Sodium 143 142 Potassium 4.4 4.7 Chloride 109 H 107 Carbon Dioxide 26 27 Anion Gap 12 13 BUN 15 15 Creatinine 0.76 0.70 Estim Creat Clear Calc TNP TNP Estimated GFR > 60 > 60 Random Glucose 112 92 Calcium 9.5 D 9.9 Valproic Acid 71.7 [place] 0.90 03/10/21 07:37 Sodium Potassium Chloride Carbon Dioxide Anion Gap BUN Creatinine Estim Creat Clear Calc Estimated GFR Random Glucose Calcium Valproic Acid [place] 1.05 Medications Medications Current Medications Generic Name Dose Route Start Last Admin Trade Name Freq PRN Reason Stop Dose Admin Acetaminophen 650 mg 02/26/21 13:14 Acetaminophen 325 Mg Tablet PO Q6H PRN Headache/Pain Mild Scale (1-3) Al Hydroxide/Mg Hydroxide 30 ml 02/26/21 13:14 Magnesium Hydrox/Alum Hydrox 30 Ml Oral.Susp PO Q6H PRN Heartburn/Nausea Aripiprazole 30 mg 02/27/21 09:00 03/11/21 11:07 Aripiprazole 30 Mg Tablet PO 30 mg DAILY OLYA Administration Benztropine Mesylate 2 mg 02/26/21 21:00 03/11/21 11:07 Benztropine Mesylate 1 Mg Tablet PO 2 mg BID OLYA Administration Clonazepam 0.5 mg 03/04/21 09:00 03/11/21 11:07 Clonazepam 0.5 Mg Tablet PO 0.5 mg BID OLYA Administration Clonidine HCl 0.1 mg 02/26/21 21:00 03/11/21 00:50 Clonidine Hcl 0.1 Mg Tablet PO Not Given BEDTIME OLYA Protocol Divalproex Sodium 250 mg 02/26/21 21:00 03/11/21 00:51 Divalproex Sodium Er 250 Mg Tab.Er.24h PO Not Given BEDTIME OLYA Divalproex Sodium 1,000 mg 02/26/21 21:00 03/11/21 00:51 Divalproex Sodium Er 500 Mg Tab.Er.24h PO Not Given BEDTIME OLYA Docusate Sodium 100 mg 02/26/21 21:00 03/11/21 11:07 Docusate Sodium 100 Mg Capsule PO 100 mg BID OLYA Administration Haloperidol 5 mg 02/27/21 09:00 03/11/21 11:07 Haloperidol 5 Mg Tablet PO 5 mg DAILY OLYA Administration Haloperidol 15 mg 02/26/21 21:00 03/11/21 00:51 Haloperidol 5 Mg Tablet PO Not Given BEDTIME OLYA Haloperidol Lactate 5 mg 03/11/21 09:37 Haloperidol Lactate 5 Mg/Ml Vial IM DAILY PRN refusal of PO dose; [facility] Or Haloperidol Lactate 10 mg 03/11/21 09:38 Haloperidol Lactate 5 Mg/Ml Vial IM BEDTIME PRN refusal of PO dose; [facility] Or Hydroxyzine HCl 25 mg 02/26/21 13:14 02/27/21 03:36 Hydroxyzine Hcl 25 Mg Tablet PO 25 mg BEDTIME PRN Administration Anxiety Lactase 1 tab 02/26/21 17:00 03/11/21 11:06 Lactase Tablet PO 1 tab TIDWM OLYA Administration Levothyroxine Sodium 50 mcg 02/27/21 06:30 03/11/21 08:54 Levothyroxine Sodium 50 Mcg Tablet PO 50 mcg DAILY@0630 OLYA Administration [place] Carbonate 750 mg 03/05/21 21:00 03/11/21 00:51 [place] Carbonate 300 Mg Tablet PO Not Given BEDTIME OLYA Loratadine 10 mg 02/27/21 09:00 03/11/21 11:07 Loratadine 10 Mg Tablet PO 10 mg DAILY OLYA Administration Magnesium Hydroxide 30 ml 02/26/21 13:14 Milk Of Magnesia 30 Ml Oral.Susp PO DAILY PRN Constipation Nicotine Polacrilex 2 mg 02/26/21 13:14 Nicotine Polacrilex 2 Mg Gum BUCCAL Q2H PRN Nicotine Cravings Oxybutynin Chloride 10 mg 02/27/21 09:00 03/11/21 11:06 Oxybutynin Chloride Er 5 Mg Tab.Er.24 PO 10 mg DAILY OLYA Administration Sertraline HCl 150 mg 02/27/21 09:00 03/11/21 11:07 Sertraline Hcl 50 Mg Tablet PO 150 mg DAILY OLYA Administration Trazodone HCl 50 mg 02/26/21 13:14 Trazodone Hcl 50 Mg Tablet PO BEDTIME PRN Insomnia Allergies Allergies Allergy/AdvReac Type Severity Reaction Status Date / Time No Known Allergies Allergy Unverified 02/26/21 15:41 Assessment & Plan Assessment & Plan (1) Schizoaffective disorder, bipolar type: Status: Acute Code(s): F25.0 - Schizoaffective disorder, bipolar type Assessment and Plan: restarted/continued outpt meds. levels after 5 days (03/03) show VPA therapeutic at 87 and lithium supra-therapeutic at 1.49. lithium dosing decreased from 900 mg QHS to 750 mg QHS as of 03/04. ammonia WNL. lithium 03/10 1.05. as pt has been unable to sign in voluntarily due to lacking capacity, commitment paperwork was filed. obtained yordy's order. haldol decanoate 100 mg was administered 03/10. pt's initial presentation may have been related to lithium toxicity. will ask residential staff to assess for closeness to baseline. refused meds once timothy of 03/10 for unclear reasons. (2) PTSD (post-traumatic stress disorder): Status: Acute Code(s): F43.10 - Post-traumatic stress disorder, unspecified Assessment and Plan: continued/restarted outpt medications regimen. Greater than 50% of the session was spent on counseling and/or coordination of care Reason for contiued inpatient stay Substantial Risk for: inability to function and rapid decompensation
[2021-03-11] MEDS: Lithium Carbonate 300 MG TABLET 750 MG PO (20:49)
[2021-03-11] MEDS: HaloperidoL 5 MG TABLET 15 MG PO (20:50)
[2021-03-11] MEDS: Divalproex Sodium ER 500 MG TAB.ER.24H 1000 MG PO (20:50)
[2021-03-11] MEDS: Divalproex Sodium ER 250 MG TAB.ER.24H PO (20:50)
[2021-03-12 08:29] VITALS: BP 135/76; PULSE 64; RESP 18; TEMP 36.3; O2SAT 98
[2021-03-12] MEDS: Sertraline HCL 50 MG TABLET 150 MG PO (08:30)
[2021-03-12] MEDS: clonazePAM 0.5 MG TABLET PO ×2 (08:30→20:25)
[2021-03-12] MEDS: Docusate Sodium 100 MG CAPSULE PO ×2 (08:30→20:25)
[2021-03-12] MEDS: Lactase TABLET 1 TAB PO (08:30)
[2021-03-12] MEDS: Benztropine Mesylate 1 MG TABLET 2 MG PO ×2 (08:31→20:24)
[2021-03-12] MEDS: Loratadine 10 MG TABLET PO (08:31)
[2021-03-12] MEDS: Levothyroxine Sodium 50 MCG TABLET PO (08:31)
[2021-03-12] MEDS: ARIPiprazole 30 MG TABLET PO (08:31)
[2021-03-12] MEDS: HaloperidoL 5 MG TABLET PO (08:31)
--- NOTE | 2021-03-12 12:06 | P.PNPSI_ITS ---
Subjective Subjective Date of Service: 03/12/21 Reason For Visit: Schizophrenia Interim History: per staff, no notable events or behaviors overnight. on interview with MD, less engageable than she had been previously, more mumbling in soft voice. appears tired and drops off to sleep easily during interview. Mental Status Exam Mental Status Exam Narrative: dressed in hospital [facility], lying in her bed sleeping, easily rousable to conversational voice. no PMA/PMR. poor eye contact. moderately cooperative with interview. speech rapid, soft, mumbled. thoughts unable to assess. affect more constricted, non-labile. no SI/HI/AVH expressed. Diagnostics Vital Signs (24Hr): Vital Signs - 24 hr 03/12/21 08:29 Temperature 97.3 F Pulse Rate 64 Respiratory Rate 18 Blood Pressure 135/76 Pulse Oximetry 98 Labs Results: 03/03/21 07:03 03/10/21 07:37 Medications Medications Current Medications Generic Name Dose Route Start Last Admin Trade Name Freq PRN Reason Stop Dose Admin Acetaminophen 650 mg 02/26/21 13:14 Acetaminophen 325 Mg Tablet PO Q6H PRN Headache/Pain Mild Scale (1-3) Al Hydroxide/Mg Hydroxide 30 ml 02/26/21 13:14 Magnesium Hydrox/Alum Hydrox 30 Ml Oral.Susp PO Q6H PRN Heartburn/Nausea Aripiprazole 30 mg 02/27/21 09:00 03/12/21 08:31 Aripiprazole 30 Mg Tablet PO 30 mg DAILY OLYA Administration Benztropine Mesylate 2 mg 02/26/21 21:00 03/12/21 08:31 Benztropine Mesylate 1 Mg Tablet PO 2 mg BID OLYA Administration Clonazepam 0.5 mg 03/12/21 21:00 Clonazepam 0.5 Mg Tablet PO BEDTIME OLYA Clonazepam 0.25 mg 03/12/21 09:00 03/12/21 08:52 Clonazepam 0.5 Mg Tablet PO Not Given DAILY OLYA Clonidine HCl 0.1 mg 02/26/21 21:00 03/11/21 20:59 Clonidine Hcl 0.1 Mg Tablet PO Not Given BEDTIME OLYA Protocol Divalproex Sodium 250 mg 02/26/21 21:00 03/11/21 20:50 Divalproex Sodium Er 250 Mg Tab.Er.24h PO 250 mg BEDTIME OLYA Administration Divalproex Sodium 1,000 mg 02/26/21 21:00 03/11/21 20:50 Divalproex Sodium Er 500 Mg Tab.Er.24h PO 1,000 mg BEDTIME OLYA Administration Docusate Sodium 100 mg 02/26/21 21:00 03/12/21 08:30 Docusate Sodium 100 Mg Capsule PO 100 mg BID OLYA Administration Haloperidol 5 mg 02/27/21 09:00 03/12/21 08:31 Haloperidol 5 Mg Tablet PO 5 mg DAILY OLYA Administration Haloperidol 15 mg 02/26/21 21:00 03/11/21 20:50 Haloperidol 5 Mg Tablet PO 15 mg BEDTIME OLYA Administration Haloperidol Lactate 5 mg 03/11/21 09:37 Haloperidol Lactate 5 Mg/Ml Vial IM DAILY PRN refusal of PO dose; [facility] Or Haloperidol Lactate 10 mg 03/11/21 09:38 Haloperidol Lactate 5 Mg/Ml Vial IM BEDTIME PRN refusal of PO dose; [facility] Or Hydroxyzine HCl 25 mg 02/26/21 13:14 02/27/21 03:36 Hydroxyzine Hcl 25 Mg Tablet PO 25 mg BEDTIME PRN Administration Anxiety Lactase 1 tab 02/26/21 17:00 03/12/21 08:30 Lactase Tablet PO 1 tab TIDWM OLYA Administration Levothyroxine Sodium 50 mcg 02/27/21 06:30 03/12/21 08:31 Levothyroxine Sodium 50 Mcg Tablet PO 50 mcg DAILY@0630 OLYA Administration [place] Carbonate 750 mg 03/05/21 21:00 03/11/21 20:49 [place] Carbonate 300 Mg Tablet PO 750 mg BEDTIME OLYA Administration Loratadine 10 mg 02/27/21 09:00 03/12/21 08:31 Loratadine 10 Mg Tablet PO 10 mg DAILY OLYA Administration Magnesium Hydroxide 30 ml 02/26/21 13:14 Milk Of Magnesia 30 Ml Oral.Susp PO DAILY PRN Constipation Nicotine Polacrilex 2 mg 02/26/21 13:14 Nicotine Polacrilex 2 Mg Gum BUCCAL Q2H PRN Nicotine Cravings Oxybutynin Chloride 10 mg 02/27/21 09:00 03/12/21 08:31 Oxybutynin Chloride Er 5 Mg Tab.Er.24 PO 10 mg DAILY OLYA Administration Sertraline HCl 150 mg 02/27/21 09:00 03/12/21 08:30 Sertraline Hcl 50 Mg Tablet PO 150 mg DAILY OLYA Administration Trazodone HCl 50 mg 02/26/21 13:14 Trazodone Hcl 50 Mg Tablet PO BEDTIME PRN Insomnia Allergies Allergies Allergy/AdvReac Type Severity Reaction Status Date / Time No Known Allergies Allergy Unverified 02/26/21 15:41 Assessment & Plan Assessment & Plan (1) Schizoaffective disorder, bipolar type: Status: Acute Code(s): F25.0 - Schizoaffective disorder, bipolar type Assessment and Plan: restarted/continued outpt meds. levels after 5 days (03/03) show VPA therapeutic at 87 and lithium supra-therapeutic at 1.49. lithium dosing decreased from 900 mg QHS to 750 mg QHS as of 03/04. ammonia WNL. lithium 03/10 1.05. as pt has been unable to sign in voluntarily due to lacking capacity, commitment paperwork was filed. obtained yordy's order. haldol decanoate 100 mg was administered 03/10. pt's initial presentation may have been related to lithium toxicity. per residential staff assessment on 03/11, pt is not yet at her baseline. refused meds once timothy of 03/10 for unclear reasons. 03/12 a.m., klonopin dosing reduced from 0.5 mg daily to 0.25 mg daily in effort to reduce sedation. T/C DC of morning haldol as well to target daytime sedation and to initiate taper as pt has received haldol IM decanoate. (2) PTSD (post-traumatic stress disorder): Status: Acute Code(s): F43.10 - Post-traumatic stress disorder, unspecified Assessment and Plan: continued/restarted outpt medications regimen. Greater than 50% of the session was spent on counseling and/or coordination of care Reason for contiued inpatient stay Substantial Risk for: inability to function and rapid decompensation
[2021-03-12] MEDS: Divalproex Sodium ER 500 MG TAB.ER.24H 1000 MG PO (20:24)
[2021-03-12 20:25] VITALS: BP 120/89; PULSE 89
[2021-03-12] MEDS: Lithium Carbonate 300 MG TABLET 750 MG PO (20:25)
[2021-03-12] MEDS: cloNIDine HCL 0.1 MG TABLET PO (20:25)
[2021-03-12] MEDS: HaloperidoL 5 MG TABLET 15 MG PO (20:25)
[2021-03-12] MEDS: Divalproex Sodium ER 250 MG TAB.ER.24H PO (20:25)
[2021-03-12 20:31] VITALS: TEMP 36.6
[2021-03-13 08:08] VITALS: BP 107/70; PULSE 72; RESP 17; TEMP 36.7; O2SAT 97
[2021-03-13] MEDS: Benztropine Mesylate 1 MG TABLET 2 MG PO ×2 (08:10→20:40)
[2021-03-13] MEDS: Loratadine 10 MG TABLET PO (08:10)
[2021-03-13] MEDS: Sertraline HCL 50 MG TABLET 150 MG PO (08:10)
[2021-03-13] MEDS: HaloperidoL 5 MG TABLET PO (08:10)
[2021-03-13] MEDS: ARIPiprazole 30 MG TABLET PO (08:10)
[2021-03-13] MEDS: Docusate Sodium 100 MG CAPSULE PO ×2 (08:10→20:39)
[2021-03-13] MEDS: Levothyroxine Sodium 50 MCG TABLET PO (08:10)
[2021-03-13] MEDS: clonazePAM 0.5 MG TABLET 0.25 MG PO (08:11)
[2021-03-13] MEDS: Lactase TABLET 1 TAB PO ×2 (08:11→12:29)
--- NOTE | 2021-03-13 11:45 | HO.PSYCHPN ---
Subjective Subjective Date of Service: 03/13/21 Reason For Visit: Schizophrenia Interim History: per staff, no notable events or behaviors overnight. continues to be periodically incontinent of urine. not attending groups, didn't leave her room yesterday, wants to go home. on interview with MD, less engageable than she had been previously, although more alert than yesterday and speech more intelligible. does stop answering MD's questions after a few minutes, however, and seems irritable. Mental Status Exam Mental Status Exam Narrative: dressed in hospital maribel, lying in her bed sleeping, easily rousable to conversational voice. no PMA/PMR. no eye contact. moderately cooperative with interview. speech rapid, soft, less mumbled. thoughts apparently linear in very brief interview. affect not observed. no SI/HI/AVH expressed. Diagnostics Vital Signs (24Hr): Vital Signs - 24 hr 03/12/21 20:25 03/12/21 20:31 03/13/21 08:08 Temperature 97.9 F 98.0 F Pulse Rate 89 72 Respiratory Rate 17 Blood Pressure 120/89 107/70 Pulse Oximetry 97 Labs Results: 03/03/21 07:03 03/10/21 07:37 Medications Medications Current Medications Generic Name Dose Route Start Last Admin Trade Name Freq PRN Reason Stop Dose Admin Acetaminophen 650 mg 02/26/21 13:14 Acetaminophen 325 Mg Tablet PO Q6H PRN Headache/Pain Mild Scale (1-3) Al Hydroxide/Mg Hydroxide 30 ml 02/26/21 13:14 Magnesium Hydrox/Alum Hydrox 30 Ml Oral.Susp PO Q6H PRN Heartburn/Nausea Aripiprazole 30 mg 02/27/21 09:00 03/13/21 08:10 Aripiprazole 30 Mg Tablet PO 30 mg DAILY OLYA Administration Benztropine Mesylate 2 mg 02/26/21 21:00 03/13/21 08:10 Benztropine Mesylate 1 Mg Tablet PO 2 mg BID OLYA Administration Clonazepam 0.5 mg 03/12/21 21:00 03/12/21 20:25 Clonazepam 0.5 Mg Tablet PO 0.5 mg BEDTIME OLYA Administration Clonazepam 0.25 mg 03/12/21 09:00 03/13/21 08:11 Clonazepam 0.5 Mg Tablet PO 0.25 mg DAILY OLYA Administration Clonidine HCl 0.1 mg 02/26/21 21:00 03/12/21 20:25 Clonidine Hcl 0.1 Mg Tablet PO 0.1 mg BEDTIME OLYA Administration Protocol Divalproex Sodium 250 mg 02/26/21 21:00 03/12/21 20:25 Divalproex Sodium Er 250 Mg Tab.Er.24h PO 250 mg BEDTIME OLYA Administration Divalproex Sodium 1,000 mg 02/26/21 21:00 03/12/21 20:24 Divalproex Sodium Er 500 Mg Tab.Er.24h PO 1,000 mg BEDTIME OLYA Administration Docusate Sodium 100 mg 02/26/21 21:00 03/13/21 08:10 Docusate Sodium 100 Mg Capsule PO 100 mg BID OLYA Administration Haloperidol 15 mg 02/26/21 21:00 03/12/21 20:25 Haloperidol 5 Mg Tablet PO 15 mg BEDTIME OLYA Administration Haloperidol Lactate 5 mg 03/11/21 09:37 Haloperidol Lactate 5 Mg/Ml Vial IM DAILY PRN refusal of PO dose; [facility] Or Haloperidol Lactate 10 mg 03/11/21 09:38 Haloperidol Lactate 5 Mg/Ml Vial IM BEDTIME PRN refusal of PO dose; [facility] Or Hydroxyzine HCl 25 mg 02/26/21 13:14 02/27/21 03:36 Hydroxyzine Hcl 25 Mg Tablet PO 25 mg BEDTIME PRN Administration Anxiety Lactase 1 tab 02/26/21 17:00 03/13/21 08:11 Lactase Tablet PO 1 tab TIDWM OLYA Administration Levothyroxine Sodium 50 mcg 02/27/21 06:30 03/13/21 08:10 Levothyroxine Sodium 50 Mcg Tablet PO 50 mcg DAILY@0630 OLYA Administration [place] Carbonate 750 mg 03/05/21 21:00 03/12/21 20:25 [place] Carbonate 300 Mg Tablet PO 750 mg BEDTIME OLYA Administration Loratadine 10 mg 02/27/21 09:00 03/13/21 08:10 Loratadine 10 Mg Tablet PO 10 mg DAILY OLYA Administration Magnesium Hydroxide 30 ml 02/26/21 13:14 Milk Of Magnesia 30 Ml Oral.Susp PO DAILY PRN Constipation Nicotine Polacrilex 2 mg 02/26/21 13:14 Nicotine Polacrilex 2 Mg Gum BUCCAL Q2H PRN Nicotine Cravings Oxybutynin Chloride 10 mg 02/27/21 09:00 03/13/21 08:10 Oxybutynin Chloride Er 5 Mg Tab.Er.24 PO 10 mg DAILY OLYA Administration Sertraline HCl 150 mg 02/27/21 09:00 03/13/21 08:10 Sertraline Hcl 50 Mg Tablet PO 150 mg DAILY OLYA Administration Trazodone HCl 50 mg 02/26/21 13:14 Trazodone Hcl 50 Mg Tablet PO BEDTIME PRN Insomnia Allergies Allergies Allergy/AdvReac Type Severity Reaction Status Date / Time No Known Allergies Allergy Unverified 02/26/21 15:41 Assessment & Plan Assessment & Plan (1) Schizoaffective disorder, bipolar type: Status: Acute Code(s): F25.0 - Schizoaffective disorder, bipolar type Assessment and Plan: restarted/continued outpt meds. levels after 5 days (03/03) show VPA therapeutic at 87 and lithium supra-therapeutic at 1.49. lithium dosing decreased from 900 mg QHS to 750 mg QHS as of 03/04. ammonia WNL. lithium 03/10 1.05. as pt has been unable to sign in voluntarily due to lacking capacity, commitment paperwork was filed. obtained yordy's order. haldol decanoate 100 mg was administered 03/10. pt's initial presentation may have been related to lithium toxicity. per residential staff assessment on 03/11, pt is not yet at her baseline. refused meds once timothy of 03/10 for unclear reasons. 03/12 a.m., klonopin dosing reduced from 0.5 mg daily to 0.25 mg daily in effort to reduce sedation. 03/13 morning haldol dose of 5 mg discontinued (Haldol Dec 100 mg given 03/10) also in interest of reducing morning sedation. commitment hearing scheduled for saturday 03/17. (2) PTSD (post-traumatic stress disorder): Status: Acute Code(s): F43.10 - Post-traumatic stress disorder, unspecified Assessment and Plan: continued/restarted outpt medications regimen. Greater than 50% of the session was spent on counseling and/or coordination of care Reason for contiued inpatient stay Substantial Risk for: inability to function and rapid decompensation
[2021-03-13 20:38] VITALS: BP 112/59; PULSE 84; RESP 20; TEMP 36.6; O2SAT 97
[2021-03-13] MEDS: clonazePAM 0.5 MG TABLET PO (20:39)
[2021-03-13] MEDS: Divalproex Sodium ER 500 MG TAB.ER.24H 1000 MG PO (20:40)
[2021-03-13] MEDS: HaloperidoL 5 MG TABLET 15 MG PO (20:40)
[2021-03-13] MEDS: Lithium Carbonate 300 MG TABLET 750 MG PO (20:40)
[2021-03-13 20:41] VITALS: BP 112/59; PULSE 84
[2021-03-13] MEDS: cloNIDine HCL 0.1 MG TABLET PO (20:41)
[2021-03-13] MEDS: Divalproex Sodium ER 250 MG TAB.ER.24H PO (20:41)
[2021-03-14 06:00] VITALS: BP 154/123; PULSE 148; RESP 16; TEMP 36.3; O2SAT 97
[2021-03-14] MEDS: clonazePAM 0.5 MG TABLET 0.25 MG PO (08:35)
[2021-03-14] MEDS: ARIPiprazole 30 MG TABLET PO (08:36)
[2021-03-14] MEDS: Docusate Sodium 100 MG CAPSULE PO ×2 (08:36→20:26)
[2021-03-14] MEDS: Benztropine Mesylate 1 MG TABLET 2 MG PO ×2 (08:36→20:25)
[2021-03-14] MEDS: Sertraline HCL 50 MG TABLET 150 MG PO (08:36)
[2021-03-14] MEDS: Lactase TABLET 1 TAB PO ×3 (08:36→17:16)
[2021-03-14] MEDS: Loratadine 10 MG TABLET PO (08:36)
[2021-03-14] MEDS: Levothyroxine Sodium 50 MCG TABLET PO (09:28)
--- NOTE | 2021-03-14 12:54 | HO.PSYCHPN ---
Subjective Subjective Date of Service: 03/14/21 Reason For Visit: Schizophrenia Subjective Notes: Section 7 Medication Compliance: Yes Side effects from medications: Yes (incontinence?) Attending Groups: No Review of Systems Review of Systems did not engage in conversation Mental Status Exam Mental Status Exam Narrative: lying in maribel- head off edge of bed, back to provider, head hidden at all angles from provider who can not see face, patient mumbled brief responses - but pt did not engage much at all Patient Appearance: Inappropriate and Bizarre Level of Consciousness: Drowsy Patient Behavior: Dependent, Resistive to Care, Avoidant and Poor Eye Contact Mood Description: Withdrawn and Constricted Affect Description: Flat Ability to Follow Directions: Poor Speech Pattern: Aphasic and Mumbled Thought Content: positive for Poverty of Content Judgement: Poor Diagnostics Vital Signs (24Hr): Vital Signs - 24 hr 03/13/21 20:38 03/13/21 20:41 03/14/21 06:00 Temperature 97.9 F 97.3 F Pulse Rate 84 84 148 H Respiratory Rate 20 16 Blood Pressure 112/59 L 112/59 L 154/123 H Pulse Oximetry 97 97 Labs Results: 03/03/21 07:03 03/10/21 07:37 Medications Medications Current Medications Generic Name Dose Route Start Last Admin Trade Name Freq PRN Reason Stop Dose Admin Acetaminophen 650 mg 02/26/21 13:14 Acetaminophen 325 Mg Tablet PO Q6H PRN Headache/Pain Mild Scale (1-3) Al Hydroxide/Mg Hydroxide 30 ml 02/26/21 13:14 Magnesium Hydrox/Alum Hydrox 30 Ml Oral.Susp PO Q6H PRN Heartburn/Nausea Aripiprazole 30 mg 02/27/21 09:00 03/14/21 08:36 Aripiprazole 30 Mg Tablet PO 30 mg DAILY OLYA Administration Benztropine Mesylate 2 mg 02/26/21 21:00 03/14/21 08:36 Benztropine Mesylate 1 Mg Tablet PO 2 mg BID OLYA Administration Clonazepam 0.5 mg 03/12/21 21:00 03/13/21 20:39 Clonazepam 0.5 Mg Tablet PO 0.5 mg BEDTIME OLYA Administration Clonazepam 0.25 mg 03/12/21 09:00 03/14/21 08:35 Clonazepam 0.5 Mg Tablet PO 0.25 mg DAILY OLYA Administration Clonidine HCl 0.1 mg 02/26/21 21:00 03/13/21 20:41 Clonidine Hcl 0.1 Mg Tablet PO 0.1 mg BEDTIME OLYA Administration Protocol Divalproex Sodium 250 mg 02/26/21 21:00 03/13/21 20:41 Divalproex Sodium Er 250 Mg Tab.Er.24h PO 250 mg BEDTIME OLYA Administration Divalproex Sodium 1,000 mg 02/26/21 21:00 03/13/21 20:40 Divalproex Sodium Er 500 Mg Tab.Er.24h PO 1,000 mg BEDTIME OLYA Administration Docusate Sodium 100 mg 02/26/21 21:00 03/14/21 08:36 Docusate Sodium 100 Mg Capsule PO 100 mg BID OLYA Administration Haloperidol 15 mg 02/26/21 21:00 03/13/21 20:40 Haloperidol 5 Mg Tablet PO 15 mg BEDTIME OLYA Administration Haloperidol Lactate 5 mg 03/11/21 09:37 Haloperidol Lactate 5 Mg/Ml Vial IM DAILY PRN refusal of PO dose; [facility] Or Haloperidol Lactate 10 mg 03/11/21 09:38 Haloperidol Lactate 5 Mg/Ml Vial IM BEDTIME PRN refusal of PO dose; [facility] Or Hydroxyzine HCl 25 mg 02/26/21 13:14 02/27/21 03:36 Hydroxyzine Hcl 25 Mg Tablet PO 25 mg BEDTIME PRN Administration Anxiety Lactase 1 tab 02/26/21 17:00 03/14/21 08:36 Lactase Tablet PO 1 tab TIDWM OLYA Administration Levothyroxine Sodium 50 mcg 02/27/21 06:30 03/14/21 09:28 Levothyroxine Sodium 50 Mcg Tablet PO 50 mcg DAILY@0630 OLYA Administration [place] Carbonate 750 mg 03/05/21 21:00 03/13/21 20:40 [place] Carbonate 300 Mg Tablet PO 750 mg BEDTIME OLYA Administration Loratadine 10 mg 02/27/21 09:00 03/14/21 08:36 Loratadine 10 Mg Tablet PO 10 mg DAILY OLYA Administration Magnesium Hydroxide 30 ml 02/26/21 13:14 Milk Of Magnesia 30 Ml Oral.Susp PO DAILY PRN Constipation Nicotine Polacrilex 2 mg 02/26/21 13:14 Nicotine Polacrilex 2 Mg Gum BUCCAL Q2H PRN Nicotine Cravings Oxybutynin Chloride 10 mg 02/27/21 09:00 03/14/21 08:35 Oxybutynin Chloride Er 5 Mg Tab.Er.24 PO 10 mg DAILY OLYA Administration Sertraline HCl 150 mg 02/27/21 09:00 03/14/21 08:36 Sertraline Hcl 50 Mg Tablet PO 150 mg DAILY OLYA Administration Trazodone HCl 50 mg 02/26/21 13:14 Trazodone Hcl 50 Mg Tablet PO BEDTIME PRN Insomnia Allergies Allergies Allergy/AdvReac Type Severity Reaction Status Date / Time No Known Allergies Allergy Unverified 02/26/21 15:41 Assessment & Plan Assessment & Plan (1) Schizoaffective disorder, bipolar type: Status: Acute Code(s): F25.0 - Schizoaffective disorder, bipolar type Assessment and Plan: restarted/continued outpt meds. levels after 5 days (03/03) show VPA therapeutic at 87 and lithium supra-therapeutic at 1.49. lithium dosing decreased from 900 mg QHS to 750 mg QHS as of 03/04. ammonia WNL. lithium 03/10 1.05. as pt has been unable to sign in voluntarily due to lacking capacity, commitment paperwork was filed. obtained yordy's order. haldol decanoate 100 mg was administered 03/10. pt's initial presentation may have been related to lithium toxicity. per residential staff assessment on 03/11, pt is not yet at her baseline. refused meds once timothy of 03/10 for unclear reasons. 03/12 a.m., klonopin dosing reduced from 0.5 mg daily to 0.25 mg daily in effort to reduce sedation. 03/13 morning haldol dose of 5 mg discontinued (Haldol Dec 100 mg given 03/10) also in interest of reducing morning sedation. commitment hearing scheduled for saturday 03/17. (2) PTSD (post-traumatic stress disorder): Status: Acute Code(s): F43.10 - Post-traumatic stress disorder, unspecified Assessment and Plan: continued/restarted outpt medications regimen. Greater than 50% of the session was spent on counseling and/or coordination of care Reason for contiued inpatient stay Substantial Risk for: inability to function, rapid decompensation and med/psych decompensation
[2021-03-14 20:23] VITALS: BP 107/55; PULSE 77; RESP 16; TEMP 36.5; O2SAT 95
[2021-03-14] MEDS: clonazePAM 0.5 MG TABLET PO (20:25)
[2021-03-14] MEDS: Divalproex Sodium ER 500 MG TAB.ER.24H 1000 MG PO (20:26)
[2021-03-14] MEDS: HaloperidoL 5 MG TABLET 15 MG PO (20:26)
[2021-03-14] MEDS: Lithium Carbonate 300 MG TABLET 750 MG PO (20:27)
[2021-03-14] MEDS: Divalproex Sodium ER 250 MG TAB.ER.24H PO (20:27)
[2021-03-14 20:28] VITALS: BP 107/55; PULSE 77
[2021-03-14] MEDS: cloNIDine HCL 0.1 MG TABLET PO (20:28)
[2021-03-15 08:00] VITALS: BP 126/71; PULSE 91; RESP 16; TEMP 36.3; O2SAT 96
[2021-03-15] MEDS: Sertraline HCL 50 MG TABLET 150 MG PO (09:11)
[2021-03-15] MEDS: Benztropine Mesylate 1 MG TABLET 2 MG PO ×2 (09:12→20:21)
[2021-03-15] MEDS: Levothyroxine Sodium 50 MCG TABLET PO (09:13)
[2021-03-15] MEDS: Lactase TABLET 1 TAB PO ×3 (09:13→20:20)
[2021-03-15] MEDS: clonazePAM 0.5 MG TABLET 0.25 MG PO (09:14)
[2021-03-15] MEDS: Docusate Sodium 100 MG CAPSULE PO ×2 (09:14→20:21)
[2021-03-15] MEDS: Loratadine 10 MG TABLET PO (09:14)
[2021-03-15 09:15] VITALS: BP 124/78; PULSE 83; RESP 18; TEMP 36.3; O2SAT 100
[2021-03-15] MEDS: ARIPiprazole 30 MG TABLET PO (09:15)
--- NOTE | 2021-03-15 12:59 | P.PNPSI_ITS ---
Subjective Subjective Date of Service: 03/15/21 Reason For Visit: Schizophrenia Subjective Notes: Section 7 Healthcare Proxy: No Guardianship: No Medical Problems Affecting Mental Status: No Interim History: Ongoing regression/disorganized state, not very verbal - decreased interaction and incontinent vs oversedated? pt nods head to this Medication Compliance: Yes Side effects from medications: Yes (? sedation ) Attending Groups: No Review of Systems Review of Systems incontinence Mental Status Exam Mental Status Exam Patient Appearance: Disheveled and Unkempt Patient Orientation: Person and Place Level of Consciousness: Drowsy Patient Behavior: Passive, Asleep (lying in bed , eyes open today, face toward me), Confused and Isolative Mood Description: Apathetic Affect Description: Flat Patient Cognition Impaired: Yes Ability to Follow Directions: Fair Speech Pattern: Soft-Spoken and Mumbled Thought Process: Slowed Thinking Thought Content: positive for Poverty of Content Abnormal Motor Activity Signs and Symptoms: Psychomotor Retardation Judgement: Poor Diagnostics Vital Signs (24Hr): Vital Signs - 24 hr 03/14/21 20:23 03/14/21 20:28 03/15/21 09:15 Temperature 97.7 F 97.3 F Pulse Rate 77 77 83 Respiratory Rate 16 18 Blood Pressure 107/55 L 107/55 L 124/78 Pulse Oximetry 95 100 Labs Results: 03/03/21 07:03 03/10/21 07:37 Labs: dep 71.7 03/09/21 lithium 10.05 03/10 Medications Medications Current Medications Generic Name Dose Route Start Last Admin Trade Name Freq PRN Reason Stop Dose Admin Acetaminophen 650 mg 02/26/21 13:14 Acetaminophen 325 Mg Tablet PO Q6H PRN Headache/Pain Mild Scale (1-3) Al Hydroxide/Mg Hydroxide 30 ml 02/26/21 13:14 Magnesium Hydrox/Alum Hydrox 30 Ml Oral.Susp PO Q6H PRN Heartburn/Nausea Aripiprazole 30 mg 02/27/21 09:00 03/15/21 09:15 Aripiprazole 30 Mg Tablet PO 30 mg DAILY OLYA Administration Benztropine Mesylate 2 mg 02/26/21 21:00 03/15/21 09:12 Benztropine Mesylate 1 Mg Tablet PO 2 mg BID OLYA Administration Clonazepam 0.5 mg 03/12/21 21:00 03/14/21 20:25 Clonazepam 0.5 Mg Tablet PO 0.5 mg BEDTIME OLYA Administration Clonazepam 0.25 mg 03/12/21 09:00 03/15/21 09:14 Clonazepam 0.5 Mg Tablet PO 0.25 mg DAILY OLYA Administration Clonidine HCl 0.1 mg 02/26/21 21:00 03/14/21 20:28 Clonidine Hcl 0.1 Mg Tablet PO 0.1 mg BEDTIME OLYA Administration Protocol Divalproex Sodium 250 mg 02/26/21 21:00 03/14/21 20:27 Divalproex Sodium Er 250 Mg Tab.Er.24h PO 250 mg BEDTIME OLYA Administration Divalproex Sodium 1,000 mg 02/26/21 21:00 03/14/21 20:26 Divalproex Sodium Er 500 Mg Tab.Er.24h PO 1,000 mg BEDTIME OLYA Administration Docusate Sodium 100 mg 02/26/21 21:00 03/15/21 09:14 Docusate Sodium 100 Mg Capsule PO 100 mg BID OLYA Administration Haloperidol 15 mg 02/26/21 21:00 03/14/21 20:26 Haloperidol 5 Mg Tablet PO 15 mg BEDTIME OLYA Administration Haloperidol Lactate 5 mg 03/11/21 09:37 Haloperidol Lactate 5 Mg/Ml Vial IM DAILY PRN refusal of PO dose; [facility] Or Haloperidol Lactate 10 mg 03/11/21 09:38 Haloperidol Lactate 5 Mg/Ml Vial IM BEDTIME PRN refusal of PO dose; [facility] Or Hydroxyzine HCl 25 mg 02/26/21 13:14 02/27/21 03:36 Hydroxyzine Hcl 25 Mg Tablet PO 25 mg BEDTIME PRN Administration Anxiety Lactase 1 tab 02/26/21 17:00 03/15/21 09:13 Lactase Tablet PO 1 tab TIDWM OLYA Administration Levothyroxine Sodium 50 mcg 02/27/21 06:30 03/15/21 09:13 Levothyroxine Sodium 50 Mcg Tablet PO 50 mcg DAILY@0630 OLYA Administration [place] Carbonate 750 mg 03/05/21 21:00 03/14/21 20:27 [place] Carbonate 300 Mg Tablet PO 750 mg BEDTIME OLYA Administration Loratadine 10 mg 02/27/21 09:00 03/15/21 09:14 Loratadine 10 Mg Tablet PO 10 mg DAILY OLYA Administration Magnesium Hydroxide 30 ml 02/26/21 13:14 Milk Of Magnesia 30 Ml Oral.Susp PO DAILY PRN Constipation Nicotine Polacrilex 2 mg 02/26/21 13:14 Nicotine Polacrilex 2 Mg Gum BUCCAL Q2H PRN Nicotine Cravings Oxybutynin Chloride 10 mg 02/27/21 09:00 03/15/21 09:13 Oxybutynin Chloride Er 5 Mg Tab.Er.24 PO 10 mg DAILY OLYA Administration Sertraline HCl 150 mg 02/27/21 09:00 03/15/21 09:11 Sertraline Hcl 50 Mg Tablet PO 150 mg DAILY OLYA Administration Trazodone HCl 50 mg 02/26/21 13:14 Trazodone Hcl 50 Mg Tablet PO BEDTIME PRN Insomnia Allergies Allergies Allergy/AdvReac Type Severity Reaction Status Date / Time No Known Allergies Allergy Unverified 02/26/21 15:41 Assessment & Plan Assessment & Plan (1) Schizoaffective disorder, bipolar type: Status: Acute Code(s): F25.0 - Schizoaffective disorder, bipolar type Assessment and Plan: restarted/continued outpt meds. levels after 5 days (03/03) show VPA therapeutic at 87 and lithium supra-therapeutic at 1.49. lithium dosing decreased from 900 mg QHS to 750 mg QHS as of 03/04. ammonia WNL. lithium 03/10 1.05. as pt has been unable to sign in voluntarily due to lacking capacity, commitment paperwork was filed. obtained yordy's order. haldol decanoate 100 mg was administered 03/10. pt's initial presentation may have been related to lithium toxicity. per residential staff assessment on 03/11, pt is not yet at her baseline. refused meds once timothy of 03/10 for unclear reasons. 03/12 a.m., klonopin dosing reduced from 0.5 mg daily to 0.25 mg daily in effort to reduce sedation. 03/13 morning haldol dose of 5 mg discontinued (Haldol Dec 100 mg given 03/10) also in interest of reducing morning sedation. commitment hearing scheduled for saturday 03/17. Consider decreasing pm haldol now that pt had deconoate administered on 713! (2) PTSD (post-traumatic stress disorder): Status: Acute Code(s): F43.10 - Post-traumatic stress disorder, unspecified Assessment and Plan: continued/restarted outpt medications regimen. Greater than 50% of the session was spent on counseling and/or coordination of care Reason for contiued inpatient stay Substantial Risk for: inability to function and rapid decompensation
[2021-03-15 20:20] VITALS: BP 126/71; PULSE 91
[2021-03-15] MEDS: cloNIDine HCL 0.1 MG TABLET PO (20:20)
[2021-03-15] MEDS: clonazePAM 0.5 MG TABLET PO (20:21)
[2021-03-15] MEDS: Lithium Carbonate 300 MG TABLET 750 MG PO (20:21)
[2021-03-15] MEDS: Divalproex Sodium ER 500 MG TAB.ER.24H 1000 MG PO (20:22)
[2021-03-15] MEDS: HaloperidoL 5 MG TABLET 10 MG PO (20:23)
[2021-03-15] MEDS: Divalproex Sodium ER 250 MG TAB.ER.24H PO (20:24)
[2021-03-16] MEDS: Levothyroxine Sodium 50 MCG TABLET PO (09:10)
[2021-03-16] MEDS: Benztropine Mesylate 1 MG TABLET 2 MG PO ×2 (09:10→21:51)
[2021-03-16] MEDS: Sertraline HCL 50 MG TABLET 150 MG PO (09:11)
[2021-03-16] MEDS: clonazePAM 0.5 MG TABLET 0.25 MG PO (09:11)
[2021-03-16] MEDS: Docusate Sodium 100 MG CAPSULE PO ×2 (09:12→21:50)
[2021-03-16] MEDS: Lactase TABLET 1 TAB PO ×2 (09:12→13:08)
[2021-03-16] MEDS: ARIPiprazole 30 MG TABLET PO (09:12)
[2021-03-16] MEDS: Loratadine 10 MG TABLET PO (09:13)
[2021-03-16 09:59] VITALS: BP 100/52; PULSE 86; RESP 17; TEMP 36.4; O2SAT 96
--- NOTE | 2021-03-16 11:16 | HO.PSYCHPN ---
Subjective Subjective Date of Service: 03/16/21 Reason For Visit: Schizophrenia Interim History: found found lying in her bed, awake. she had eaten breakfast. she was engageable more so than in recent days. she stated she does not want to return to the shelter, but wants to go home with her mother and father. she described herself as a baby in the need to go home with her parents. informed her her parents were not available and she would need to go to the shelter. she said she did not want to live there for the rest of her life. MD suggested she may not have to live there for the rest of her life, but she did for the time being. MD encouraged her to discuss the reasons she is dissatisfied with the shelter with shelter staff next time they come to get her. MD encouraged pt to attend to her ADLs and to be sure to use the toilet for urinating. she reported she did do that. she did continue on in a disorganized manner which was difficult to follow, and MD excused himself from the interview. per staff, pt was incontinent overnight. isolative, eating well. i want my daddy. self-dialoguing. slept through the night. Mental Status Exam Mental Status Exam Narrative: dressed in hospital maribel, lying in her bed awake. no PMA/PMR. fair contact. cooperative with interview. speech rapid, soft, less mumbled. thoughts apparently linear somewhat in response to questions but spontaneously tangential. affect constricted, normo-intense, non-labible. no SI/HI/AVH expressed. Diagnostics Vital Signs (24Hr): Vital Signs - 24 hr 03/15/21 20:20 03/16/21 09:59 Temperature 97.6 F Pulse Rate 91 86 Respiratory Rate 17 Blood Pressure 126/71 100/52 L Pulse Oximetry 96 Labs Results: 03/03/21 07:03 03/10/21 07:37 Medications Medications Current Medications Generic Name Dose Route Start Last Admin Trade Name Freq PRN Reason Stop Dose Admin Acetaminophen 650 mg 02/26/21 13:14 Acetaminophen 325 Mg Tablet PO Q6H PRN Headache/Pain Mild Scale (1-3) Al Hydroxide/Mg Hydroxide 30 ml 02/26/21 13:14 Magnesium Hydrox/Alum Hydrox 30 Ml Oral.Susp PO Q6H PRN Heartburn/Nausea Aripiprazole 30 mg 02/27/21 09:00 03/16/21 09:12 Aripiprazole 30 Mg Tablet PO 30 mg DAILY OLYA Administration Benztropine Mesylate 2 mg 02/26/21 21:00 03/16/21 09:10 Benztropine Mesylate 1 Mg Tablet PO 2 mg BID OLYA Administration Clonazepam 0.5 mg 03/12/21 21:00 03/15/21 20:21 Clonazepam 0.5 Mg Tablet PO 0.5 mg BEDTIME OLYA Administration Clonazepam 0.25 mg 03/12/21 09:00 03/16/21 09:11 Clonazepam 0.5 Mg Tablet PO 0.25 mg DAILY OLYA Administration Clonidine HCl 0.1 mg 02/26/21 21:00 03/15/21 20:20 Clonidine Hcl 0.1 Mg Tablet PO 0.1 mg BEDTIME OLYA Administration Protocol Divalproex Sodium 250 mg 02/26/21 21:00 03/15/21 20:24 Divalproex Sodium Er 250 Mg Tab.Er.24h PO 250 mg BEDTIME OLYA Administration Divalproex Sodium 1,000 mg 02/26/21 21:00 03/15/21 20:22 Divalproex Sodium Er 500 Mg Tab.Er.24h PO 1,000 mg BEDTIME OLYA Administration Docusate Sodium 100 mg 02/26/21 21:00 03/16/21 09:12 Docusate Sodium 100 Mg Capsule PO 100 mg BID OLYA Administration Haloperidol 10 mg 03/15/21 21:00 03/15/21 20:23 Haloperidol 5 Mg Tablet PO 10 mg BEDTIME OLYA Administration Haloperidol Lactate 5 mg 03/11/21 09:37 Haloperidol Lactate 5 Mg/Ml Vial IM DAILY PRN refusal of PO dose; [facility] Haloperidol Lactate 10 mg 03/11/21 09:38 Haloperidol Lactate 5 Mg/Ml Vial IM BEDTIME PRN refusal of PO dose; [facility] Or Hydroxyzine HCl 25 mg 02/26/21 13:14 02/27/21 03:36 Hydroxyzine Hcl 25 Mg Tablet PO 25 mg BEDTIME PRN Administration Anxiety Lactase 1 tab 02/26/21 17:00 03/16/21 09:12 Lactase Tablet PO 1 tab TIDWM OLYA Administration Levothyroxine Sodium 50 mcg 02/27/21 06:30 03/16/21 09:10 Levothyroxine Sodium 50 Mcg Tablet PO 50 mcg DAILY@0630 OLYA Administration [place] Carbonate 750 mg 03/05/21 21:00 03/15/21 20:21 [place] Carbonate 300 Mg Tablet PO 750 mg BEDTIME OLYA Administration Loratadine 10 mg 02/27/21 09:00 03/16/21 09:13 Loratadine 10 Mg Tablet PO 10 mg DAILY OLYA Administration Magnesium Hydroxide 30 ml 02/26/21 13:14 Milk Of Magnesia 30 Ml Oral.Susp PO DAILY PRN Constipation Nicotine Polacrilex 2 mg 02/26/21 13:14 Nicotine Polacrilex 2 Mg Gum BUCCAL Q2H PRN Nicotine Cravings Oxybutynin Chloride 10 mg 02/27/21 09:00 03/16/21 09:12 Oxybutynin Chloride Er 5 Mg Tab.Er.24 PO 10 mg DAILY OLYA Administration Sertraline HCl 150 mg 02/27/21 09:00 03/16/21 09:11 Sertraline Hcl 50 Mg Tablet PO 150 mg DAILY OLYA Administration Trazodone HCl 50 mg 02/26/21 13:14 Trazodone Hcl 50 Mg Tablet PO BEDTIME PRN Insomnia Allergies Allergies Allergy/AdvReac Type Severity Reaction Status Date / Time No Known Allergies Allergy Unverified 02/26/21 15:41 Assessment & Plan Assessment & Plan (1) Schizoaffective disorder, bipolar type: Status: Acute Code(s): F25.0 - Schizoaffective disorder, bipolar type Assessment and Plan: restarted/continued outpt meds. levels after 5 days (03/03) show VPA therapeutic at 87 and lithium supra-therapeutic at 1.49. lithium dosing decreased from 900 mg QHS to 750 mg QHS as of 03/04. ammonia WNL. lithium 03/10 1.05. as pt has been unable to sign in voluntarily due to lacking capacity, commitment paperwork was filed. obtained yordy's order. haldol decanoate 100 mg was administered 03/10. pt's initial presentation may have been related to lithium toxicity. per residential staff assessment on 03/11, pt is not yet at her baseline. refused meds once timothy of 03/10 for unclear reasons. 03/12 a.m., klonopin dosing reduced from 0.5 mg daily to 0.25 mg daily in effort to reduce sedation. 03/13 morning haldol dose of 5 mg discontinued (Haldol Dec 100 mg given 03/10) also in interest of reducing morning sedation. commitment hearing scheduled for saturday 03/17. 03/16 appears more engageable; will request shelter staff visit her once again. (2) PTSD (post-traumatic stress disorder): Status: Acute Code(s): F43.10 - Post-traumatic stress disorder, unspecified Assessment and Plan: continued/restarted outpt medications regimen. Greater than 50% of the session was spent on counseling and/or coordination of care Reason for contiued inpatient stay Substantial Risk for: inability to function and rapid decompensation
[2021-03-16 21:20] VITALS: BP 116/63; PULSE 78; RESP 18; TEMP 36.7; O2SAT 96
[2021-03-16] MEDS: Divalproex Sodium ER 500 MG TAB.ER.24H 1000 MG PO (21:50)
[2021-03-16] MEDS: clonazePAM 0.5 MG TABLET PO (21:50)
[2021-03-16] MEDS: HaloperidoL 5 MG TABLET 10 MG PO (21:50)
[2021-03-16] MEDS: Divalproex Sodium ER 250 MG TAB.ER.24H PO (21:50)
[2021-03-16 21:51] VITALS: BP 116/63; PULSE 78
[2021-03-16] MEDS: cloNIDine HCL 0.1 MG TABLET PO (21:51)
[2021-03-16] MEDS: Lithium Carbonate 300 MG TABLET 750 MG PO (21:51)
[2021-03-17] MEDS: ARIPiprazole 30 MG TABLET PO (09:14)
[2021-03-17] MEDS: Lactase TABLET 1 TAB PO (09:14)
[2021-03-17] MEDS: Levothyroxine Sodium 50 MCG TABLET PO (09:14)
[2021-03-17] MEDS: clonazePAM 0.5 MG TABLET 0.25 MG PO (09:15)
[2021-03-17] MEDS: Benztropine Mesylate 1 MG TABLET 2 MG PO ×2 (09:15→20:34)
[2021-03-17] MEDS: Docusate Sodium 100 MG CAPSULE PO ×2 (09:16→20:33)
[2021-03-17] MEDS: Loratadine 10 MG TABLET PO (09:16)
[2021-03-17] MEDS: Sertraline HCL 50 MG TABLET 150 MG PO (09:16)
[2021-03-17 09:41] VITALS: BP 111/68; PULSE 70; RESP 18; TEMP 36.3; O2SAT 95
--- NOTE | 2021-03-17 14:12 | HO.PSYCHPN ---
Subjective Subjective Date of Service: 03/17/21 Reason For Visit: Schizophrenia Interim History: pt was encountered in her room, lying on the bed. she was apparently asleep but was rousable to conversational voice. she stated she does not feel well, but when MD attempted to inquire further her mumblings were unintelligible, and then she appeared to fall asleep again. Review of Systems Review of Systems incontinence Mental Status Exam Mental Status Exam Narrative: dressed in hospital [facility], lying in her bed asleep. no PMA/PMR. fair eye contact. not cooperative with interview. speech nml rate, soft, mumbled. thoughts unable to assess. affect constricted, normo-intense, non-labile. no SI/HI/AVH expressed. Diagnostics Vital Signs (24Hr): Vital Signs - 24 hr 03/16/21 21:20 03/16/21 21:51 03/17/21 09:41 Temperature 98.0 F 97.3 F Pulse Rate 78 78 70 Respiratory Rate 18 18 Blood Pressure 116/63 116/63 111/68 Pulse Oximetry 96 95 Labs Results: 03/03/21 07:03 03/10/21 07:37 Medications Medications Current Medications Generic Name Dose Route Start Last Admin Trade Name Freq PRN Reason Stop Dose Admin Acetaminophen 650 mg 02/26/21 13:14 Acetaminophen 325 Mg Tablet PO Q6H PRN Headache/Pain Mild Scale (1-3) Al Hydroxide/Mg Hydroxide 30 ml 02/26/21 13:14 Magnesium Hydrox/Alum Hydrox 30 Ml Oral.Susp PO Q6H PRN Heartburn/Nausea Aripiprazole 30 mg 02/27/21 09:00 03/17/21 09:14 Aripiprazole 30 Mg Tablet PO 30 mg DAILY OLYA Administration Benztropine Mesylate 2 mg 02/26/21 21:00 03/17/21 09:15 Benztropine Mesylate 1 Mg Tablet PO 2 mg BID OLYA Administration Clonazepam 0.5 mg 03/12/21 21:00 03/16/21 21:50 Clonazepam 0.5 Mg Tablet PO 0.5 mg BEDTIME OLYA Administration Clonazepam 0.25 mg 03/12/21 09:00 03/17/21 09:15 Clonazepam 0.5 Mg Tablet PO 0.25 mg DAILY OLYA Administration Clonidine HCl 0.1 mg 02/26/21 21:00 03/16/21 21:51 Clonidine Hcl 0.1 Mg Tablet PO 0.1 mg BEDTIME OLYA Administration Protocol Divalproex Sodium 250 mg 02/26/21 21:00 03/16/21 21:50 Divalproex Sodium Er 250 Mg Tab.Er.24h PO 250 mg BEDTIME OLYA Administration Divalproex Sodium 1,000 mg 02/26/21 21:00 03/16/21 21:50 Divalproex Sodium Er 500 Mg Tab.Er.24h PO 1,000 mg BEDTIME OLYA Administration Docusate Sodium 100 mg 02/26/21 21:00 03/17/21 09:16 Docusate Sodium 100 Mg Capsule PO 100 mg BID OLYA Administration Haloperidol 10 mg 03/15/21 21:00 03/16/21 21:50 Haloperidol 5 Mg Tablet PO 10 mg BEDTIME OLYA Administration Haloperidol Lactate 5 mg 03/11/21 09:37 Haloperidol Lactate 5 Mg/Ml Vial IM DAILY PRN refusal of PO dose; [facility] Or Haloperidol Lactate 10 mg 03/11/21 09:38 Haloperidol Lactate 5 Mg/Ml Vial IM BEDTIME PRN refusal of PO dose; [facility] Or Hydroxyzine HCl 25 mg 02/26/21 13:14 02/27/21 03:36 Hydroxyzine Hcl 25 Mg Tablet PO 25 mg BEDTIME PRN Administration Anxiety Lactase 1 tab 02/26/21 17:00 03/17/21 13:21 Lactase Tablet PO Not Given TIDWM OLYA Levothyroxine Sodium 50 mcg 02/27/21 06:30 03/17/21 09:14 Levothyroxine Sodium 50 Mcg Tablet PO 50 mcg DAILY@0630 OLYA Administration [place] Carbonate 750 mg 03/05/21 21:00 03/16/21 21:51 [place] Carbonate 300 Mg Tablet PO 750 mg BEDTIME OLYA Administration Loratadine 10 mg 02/27/21 09:00 03/17/21 09:16 Loratadine 10 Mg Tablet PO 10 mg DAILY OLYA Administration Magnesium Hydroxide 30 ml 02/26/21 13:14 Milk Of Magnesia 30 Ml Oral.Susp PO DAILY PRN Constipation Nicotine Polacrilex 2 mg 02/26/21 13:14 Nicotine Polacrilex 2 Mg Gum BUCCAL Q2H PRN Nicotine Cravings Oxybutynin Chloride 10 mg 02/27/21 09:00 03/17/21 09:14 Oxybutynin Chloride Er 5 Mg Tab.Er.24 PO 10 mg DAILY OLYA Administration Sertraline HCl 150 mg 02/27/21 09:00 03/17/21 09:16 Sertraline Hcl 50 Mg Tablet PO 150 mg DAILY OLYA Administration Trazodone HCl 50 mg 02/26/21 13:14 Trazodone Hcl 50 Mg Tablet PO BEDTIME PRN Insomnia Allergies Allergies Allergy/AdvReac Type Severity Reaction Status Date / Time No Known Allergies Allergy Unverified 02/26/21 15:41 Assessment & Plan Assessment & Plan (1) Schizoaffective disorder, bipolar type: Status: Acute Code(s): F25.0 - Schizoaffective disorder, bipolar type Assessment and Plan: restarted/continued outpt meds. levels after 5 days (03/03) show VPA therapeutic at 87 and lithium supra-therapeutic at 1.49. lithium dosing decreased from 900 mg QHS to 750 mg QHS as of 03/04. ammonia WNL. lithium 03/10 1.05. as pt has been unable to sign in voluntarily due to lacking capacity, commitment paperwork was filed. obtained yordy's order. haldol decanoate 100 mg was administered 03/10. pt's initial presentation may have been related to lithium toxicity. per residential staff assessment on 03/11, pt is not yet at her baseline. refused meds once timothy of 03/10 for unclear reasons. 03/12 a.m., klonopin dosing reduced from 0.5 mg daily to 0.25 mg daily in effort to reduce sedation. 03/13 morning haldol dose of 5 mg discontinued (Haldol Dec 100 mg given 03/10) also in interest of reducing morning sedation. commitment hearing rescheduled for saturday 03/24. 03/16 appears more engageable; will request residential staff visit her once again. 03/18 morning klonopin dosing discontinued; [place] also cut HS haldol dosing by 5 mg as of 03/17. otherwise continue current medications. (2) PTSD (post-traumatic stress disorder): Status: Acute Code(s): F43.10 - Post-traumatic stress disorder, unspecified Assessment and Plan: continued/restarted outpt medications regimen. Greater than 50% of the session was spent on counseling and/or coordination of care Reason for contiued inpatient stay Substantial Risk for: inability to function and rapid decompensation
[2021-03-17 17:27] VITALS: BP 115/60; PULSE 87; RESP 18; TEMP 36.7; O2SAT 95
[2021-03-17 20:33] VITALS: BP 111/58; PULSE 87
[2021-03-17] MEDS: Lithium Carbonate 300 MG TABLET 750 MG PO (20:33)
[2021-03-17] MEDS: Divalproex Sodium ER 500 MG TAB.ER.24H 1000 MG PO (20:33)
[2021-03-17] MEDS: Divalproex Sodium ER 250 MG TAB.ER.24H PO (20:33)
[2021-03-17] MEDS: cloNIDine HCL 0.1 MG TABLET PO (20:33)
[2021-03-17] MEDS: clonazePAM 0.5 MG TABLET PO (20:34)
[2021-03-17] MEDS: HaloperidoL 5 MG TABLET PO (20:34)
[2021-03-18 06:00] VITALS: BP 108/80; PULSE 67; RESP 18; TEMP 36.6; O2SAT 98
[2021-03-18] MEDS: ARIPiprazole 30 MG TABLET PO (09:18)
[2021-03-18] MEDS: Levothyroxine Sodium 50 MCG TABLET PO (09:18)
[2021-03-18] MEDS: Sertraline HCL 50 MG TABLET 150 MG PO (09:18)
[2021-03-18] MEDS: Benztropine Mesylate 1 MG TABLET 2 MG PO ×2 (09:19→20:34)
[2021-03-18] MEDS: Lactase TABLET 1 TAB PO ×2 (09:19→17:35)
[2021-03-18] MEDS: Loratadine 10 MG TABLET PO (09:19)
[2021-03-18] MEDS: Docusate Sodium 100 MG CAPSULE PO ×2 (09:19→20:35)
--- NOTE | 2021-03-18 11:18 | P.PNPSI_ITS ---
Subjective Subjective Date of Service: 03/18/21 Reason For Visit: Schizophrenia Interim History: found found lying in her bed, awake. she had eaten breakfast. she was engageable more so than in recent days. she reported her mood as good and had no complaints. when MD asked her if he could help her in any way she referenced her empty breakfast try on her bed. MD suggested she put it on her desk until staff came to collevt it, which she did. per staff, pt was incontinent overnight and once yesterday. pleasant and cheerful. calling night nurse steve. Review of Systems Review of Systems incontinence Mental Status Exam Mental Status Exam Narrative: dressed in [facility], sitting on her bed awake. no PMA/PMR. good contact. cooperative with interview. speech rapid, soft, less mumbled. thoughts apparently linear and logical. affect more flexible, normo-intense, non-labile. no SI/HI/AVH expressed. Diagnostics Vital Signs (24Hr): Vital Signs - 24 hr 03/17/21 17:27 03/17/21 20:33 03/18/21 06:00 Temperature 98.1 F 97.8 F Pulse Rate 87 87 67 Respiratory Rate 18 18 Blood Pressure 115/60 111/58 L 108/80 Pulse Oximetry 95 98 Labs Results: 03/03/21 07:03 03/10/21 07:37 Medications Medications Current Medications Generic Name Dose Route Start Last Admin Trade Name Freq PRN Reason Stop Dose Admin Acetaminophen 650 mg 02/26/21 13:14 Acetaminophen 325 Mg Tablet PO Q6H PRN Headache/Pain Mild Scale (1-3) Al Hydroxide/Mg Hydroxide 30 ml 02/26/21 13:14 Magnesium Hydrox/Alum Hydrox 30 Ml Oral.Susp PO Q6H PRN Heartburn/Nausea Aripiprazole 30 mg 02/27/21 09:00 03/18/21 09:18 Aripiprazole 30 Mg Tablet PO 30 mg DAILY OLYA Administration Benztropine Mesylate 2 mg 02/26/21 21:00 03/18/21 09:19 Benztropine Mesylate 1 Mg Tablet PO 2 mg BID OLYA Administration Clonazepam 0.5 mg 03/12/21 21:00 03/17/21 20:34 Clonazepam 0.5 Mg Tablet PO 0.5 mg BEDTIME OLYA Administration Clonidine HCl 0.1 mg 02/26/21 21:00 03/17/21 20:33 Clonidine Hcl 0.1 Mg Tablet PO 0.1 mg BEDTIME OLYA Administration Protocol Divalproex Sodium 250 mg 02/26/21 21:00 03/17/21 20:33 Divalproex Sodium Er 250 Mg Tab.Er.24h PO 250 mg BEDTIME OLYA Administration Divalproex Sodium 1,000 mg 02/26/21 21:00 03/17/21 20:33 Divalproex Sodium Er 500 Mg Tab.Er.24h PO 1,000 mg BEDTIME OLYA Administration Docusate Sodium 100 mg 02/26/21 21:00 03/18/21 09:19 Docusate Sodium 100 Mg Capsule PO 100 mg BID OLYA Administration Haloperidol 5 mg 03/17/21 21:00 03/17/21 20:34 Haloperidol 5 Mg Tablet PO 5 mg BEDTIME OLYA Administration Haloperidol Lactate 5 mg 03/11/21 09:37 Haloperidol Lactate 5 Mg/Ml Vial IM DAILY PRN refusal of PO dose; [facility] Or Haloperidol Lactate 10 mg 03/11/21 09:38 Haloperidol Lactate 5 Mg/Ml Vial IM BEDTIME PRN refusal of PO dose; [facility] Or Hydroxyzine HCl 25 mg 02/26/21 13:14 02/27/21 03:36 Hydroxyzine Hcl 25 Mg Tablet PO 25 mg BEDTIME PRN Administration Anxiety Lactase 1 tab 02/26/21 17:00 03/18/21 09:19 Lactase Tablet PO 1 tab TIDWM OLYA Administration Levothyroxine Sodium 50 mcg 02/27/21 06:30 03/18/21 09:18 Levothyroxine Sodium 50 Mcg Tablet PO 50 mcg DAILY@0630 OLYA [address] Carbonate 750 mg 03/05/21 21:00 03/17/21 20:[address] Carbonate 300 Mg Tablet PO 750 mg BEDTIME OLYA Administration Loratadine 10 mg 02/27/21 09:00 03/18/21 09:19 Loratadine 10 Mg Tablet PO 10 mg DAILY OLYA Administration Magnesium Hydroxide 30 ml 02/26/21 13:14 Milk Of Magnesia 30 Ml Oral.Susp PO DAILY PRN Constipation Nicotine Polacrilex 2 mg 02/26/21 13:14 Nicotine Polacrilex 2 Mg Gum BUCCAL Q2H PRN Nicotine Cravings Oxybutynin Chloride 10 mg 02/27/21 09:00 03/18/21 09:19 Oxybutynin Chloride Er 5 Mg Tab.Er.24 PO 10 mg DAILY OLYA Administration Sertraline HCl 150 mg 02/27/21 09:00 03/18/21 09:18 Sertraline Hcl 50 Mg Tablet PO 150 mg DAILY OLYA Administration Trazodone HCl 50 mg 02/26/21 13:14 Trazodone Hcl 50 Mg Tablet PO BEDTIME PRN Insomnia Allergies Allergies Allergy/AdvReac Type Severity Reaction Status Date / Time No Known Allergies Allergy Unverified 02/26/21 15:41 Assessment & Plan Assessment & Plan (1) Schizoaffective disorder, bipolar type: Status: Acute Code(s): F25.0 - Schizoaffective disorder, bipolar type Assessment and Plan: restarted/continued outpt meds. levels after 5 days (03/03) show VPA therapeutic at 87 and lithium supra-therapeutic at 1.49. lithium dosing decreased from 900 mg QHS to 750 mg QHS as of 03/04. ammonia WNL. lithium 03/10 1.05. as pt has been unable to sign in voluntarily due to lacking capacity, commitment paperwork was filed. obtained yordy's order. haldol decanoate 100 mg was administered 03/10. pt's initial presentation may have been related to lithium toxicity. per residential staff assessment on 03/11, pt is not yet at her baseline. refused meds once timothy of 03/10 for unclear reasons. 03/12 a.m., klonopin dosing reduced from 0.5 mg daily to 0.25 mg daily in effort to reduce sedation. 03/13 morning haldol dose of 5 mg discontinued (Haldol Dec 100 mg given 03/10) also in interest of reducing morning sedation. commitment hearing rescheduled for saturday 03/24. 03/16 appeared more engageable; will request detention staff visit her once again. 03/18 morning klonopin dosing discontinued; also cut HS haldol dosing by 5 mg as of 03/17. otherwise continue current medications. (2) PTSD (post-traumatic stress disorder): Status: Acute Code(s): F43.10 - Post-traumatic stress disorder, unspecified Assessment and Plan: continued/restarted outpt medications regimen. Greater than 50% of the session was spent on counseling and/or coordination of care Reason for contiued inpatient stay Substantial Risk for: inability to function and rapid decompensation
[2021-03-18 20:30] VITALS: BP 145/89; PULSE 84; RESP 18; TEMP 36.2; O2SAT 95
[2021-03-18 20:32] VITALS: BP 145/89; PULSE 84
[2021-03-18] MEDS: cloNIDine HCL 0.1 MG TABLET PO (20:32)
[2021-03-18] MEDS: Lithium Carbonate 300 MG TABLET 750 MG PO (20:33)
[2021-03-18] MEDS: Divalproex Sodium ER 500 MG TAB.ER.24H 1000 MG PO (20:34)
[2021-03-18] MEDS: Divalproex Sodium ER 250 MG TAB.ER.24H PO (20:34)
[2021-03-18] MEDS: clonazePAM 0.5 MG TABLET PO (20:34)
[2021-03-18] MEDS: HaloperidoL 5 MG TABLET PO (20:35)
[2021-03-19 08:15] VITALS: BP 97/53; PULSE 66; RESP 16; TEMP 36.8; O2SAT 93
[2021-03-19] MEDS: Levothyroxine Sodium 50 MCG TABLET PO (08:38)
[2021-03-19] MEDS: Sertraline HCL 50 MG TABLET 150 MG PO (08:38)
[2021-03-19] MEDS: Lactase TABLET 1 TAB PO (08:38)
[2021-03-19] MEDS: ARIPiprazole 30 MG TABLET PO (08:39)
[2021-03-19] MEDS: Docusate Sodium 100 MG CAPSULE PO ×2 (08:39→20:33)
[2021-03-19] MEDS: Loratadine 10 MG TABLET PO (08:39)
[2021-03-19] MEDS: Benztropine Mesylate 1 MG TABLET 2 MG PO ×2 (08:39→20:34)
--- NOTE | 2021-03-19 13:56 | P.PNPSI_ITS ---
Subjective Subjective Date of Service: 03/19/21 Reason For Visit: Schizophrenia Interim History: pt was found seated at her desk eating breakfast. she was engageable more so than in recent days. she reported her mood as OK and had no complaints. she expressed desire to discharge to her senior care and was informed she would be leaving tomorrow. per staff, visible in milieu. singing, talkative. RIS. cheerful, bright. no enuresis overnight. Mental Status Exam Mental Status Exam Narrative: dressed in hospital [facility], sitting at her desk. no PMA/PMR. good eye contact. cooperative with interview. speech rapid, soft, less mumbled. thoughts apparently linear and logical. affect more flexible, normo-intense, non-labile. no SI/HI/AVH expressed. Diagnostics Vital Signs (24Hr): Vital Signs - 24 hr 03/18/21 20:30 03/18/21 20:32 03/19/21 08:15 Temperature 97.1 F 98.2 F Pulse Rate 84 84 66 Respiratory Rate 18 16 Blood Pressure 145/89 H 145/89 H 97/53 L Pulse Oximetry 95 93 Labs Results: 03/03/21 07:03 03/10/21 07:37 Medications Medications Current Medications Generic Name Dose Route Start Last Admin Trade Name Freq PRN Reason Stop Dose Admin Acetaminophen 650 mg 02/26/21 13:14 Acetaminophen 325 Mg Tablet PO Q6H PRN Headache/Pain Mild Scale (1-3) Al Hydroxide/Mg Hydroxide 30 ml 02/26/21 13:14 Magnesium Hydrox/Alum Hydrox 30 Ml Oral.Susp PO Q6H PRN Heartburn/Nausea Aripiprazole 30 mg 02/27/21 09:00 03/19/21 08:39 Aripiprazole 30 Mg Tablet PO 30 mg DAILY OLYA Administration Benztropine Mesylate 2 mg 02/26/21 21:00 03/19/21 08:39 Benztropine Mesylate 1 Mg Tablet PO 2 mg BID OLYA Administration Clonazepam 0.5 mg 03/12/21 21:00 03/18/21 20:34 Clonazepam 0.5 Mg Tablet PO 0.5 mg BEDTIME OLYA Administration Clonidine HCl 0.1 mg 02/26/21 21:00 03/18/21 20:32 Clonidine Hcl 0.1 Mg Tablet PO 0.1 mg BEDTIME OLYA Administration Protocol Divalproex Sodium 250 mg 02/26/21 21:00 03/18/21 20:34 Divalproex Sodium Er 250 Mg Tab.Er.24h PO 250 mg BEDTIME OLYA Administration Divalproex Sodium 1,000 mg 02/26/21 21:00 03/18/21 20:34 Divalproex Sodium Er 500 Mg Tab.Er.24h PO 1,000 mg BEDTIME OLYA Administration Docusate Sodium 100 mg 02/26/21 21:00 03/19/21 08:39 Docusate Sodium 100 Mg Capsule PO 100 mg BID OLYA Administration Haloperidol 5 mg 03/17/21 21:00 03/18/21 20:35 Haloperidol 5 Mg Tablet PO 5 mg BEDTIME OLYA Administration Haloperidol Lactate 5 mg 03/11/21 09:37 Haloperidol Lactate 5 Mg/Ml Vial IM DAILY PRN refusal of PO dose; [facility] Or Haloperidol Lactate 10 mg 03/11/21 09:38 Haloperidol Lactate 5 Mg/Ml Vial IM BEDTIME PRN refusal of PO dose; [facility] Or Hydroxyzine HCl 25 mg 02/26/21 13:14 02/27/21 03:36 Hydroxyzine Hcl 25 Mg Tablet PO 25 mg BEDTIME PRN Administration Anxiety Lactase 1 tab 02/26/21 17:00 03/19/21 12:29 Lactase Tablet PO Not Given TIDWM OLYA Levothyroxine Sodium 50 mcg 02/27/21 06:30 03/19/21 08:38 Levothyroxine Sodium 50 Mcg Tablet PO 50 mcg DAILY@0630 OLYA Administration [place] Carbonate 750 mg 03/05/21 21:00 03/18/21 20:33 [place] Carbonate 300 Mg Tablet PO 750 mg BEDTIME OLYA Administration Loratadine 10 mg 02/27/21 09:00 03/19/21 08:39 Loratadine 10 Mg Tablet PO 10 mg DAILY OLYA Administration Magnesium Hydroxide 30 ml 02/26/21 13:14 Milk Of Magnesia 30 Ml Oral.Susp PO DAILY PRN Constipation Nicotine Polacrilex 2 mg 02/26/21 13:14 Nicotine Polacrilex 2 Mg Gum BUCCAL Q2H PRN Nicotine Cravings Oxybutynin Chloride 10 mg 02/27/21 09:00 03/19/21 08:38 Oxybutynin Chloride Er 5 Mg Tab.Er.24 PO 10 mg DAILY OLYA Administration Sertraline HCl 150 mg 02/27/21 09:00 07/22/21 08:38 Sertraline Hcl 50 Mg Tablet PO 150 mg DAILY OLYA Administration Trazodone HCl 50 mg 02/26/21 13:14 Trazodone Hcl 50 Mg Tablet PO BEDTIME PRN Insomnia Allergies Allergies Allergy/AdvReac Type Severity Reaction Status Date / Time No Known Allergies Allergy Unverified 02/26/21 15:41 Assessment & Plan Assessment & Plan (1) Schizoaffective disorder, bipolar type: Status: Acute Code(s): F25.0 - Schizoaffective disorder, bipolar type Assessment and Plan: restarted/continued outpt meds. levels after 5 days (03/03) show VPA therapeutic at 87 and lithium supra-therapeutic at 1.49. lithium dosing decreased from 900 mg QHS to 750 mg QHS as of 03/04. ammonia WNL. lithium 03/10 1.05. as pt has been unable to sign in voluntarily due to lacking capacity, commitment paperwork was filed. obtained yordy's order. haldol decanoate 100 mg was administered 03/10. pt's initial presentation may have been related to lithium toxicity. per residential staff assessment on 03/11, pt is not yet at her baseline. refused meds once timothy of 03/10 for unclear reasons. 03/12 a.m., klonopin dosing reduced from 0.5 mg daily to 0.25 mg daily in effort to reduce sedation. 03/13 morning haldol dose of 5 mg discontinued (Haldol Dec 100 mg given 03/10) also in interest of reducing morning sedation. commitment hearing rescheduled for saturday 03/24. 03/16 appeared more engageable; senior care staff visited her once again 03/18 and felt she was suitable for return to their care. 03/18 morning klonopin dosing d iscontinued; also cut HS haldol dosing by 5 mg as of 03/17. otherwise continue current medications. discharge 03/20 at 2 pm to senior care. (2) PTSD (post-traumatic stress disorder): Status: Acute Code(s): F43.10 - Post-traumatic stress disorder, unspecified Assessment and Plan: continued/restarted outpt medications regimen. Greater than 50% of the session was spent on counseling and/or coordination of care Reason for contiued inpatient stay Substantial Risk for: inability to function and rapid decompensation
[2021-03-19] MEDS: Divalproex Sodium ER 500 MG TAB.ER.24H 1000 MG PO (20:33)
[2021-03-19] MEDS: HaloperidoL 5 MG TABLET PO (20:34)
[2021-03-19] MEDS: clonazePAM 0.5 MG TABLET PO (20:34)
[2021-03-19] MEDS: Lithium Carbonate 300 MG TABLET 750 MG PO (20:34)
[2021-03-19] MEDS: Divalproex Sodium ER 250 MG TAB.ER.24H PO (20:36)
[2021-03-19 20:46] VITALS: BP 108/58; PULSE 86
[2021-03-19 20:47] VITALS: BP 108/58; PULSE 86; TEMP 36.8; O2SAT 96
[2021-03-20 06:00] VITALS: BP 132/90; PULSE 96; TEMP 36.1; O2SAT 99
[2021-03-20] MEDS: Benztropine Mesylate 1 MG TABLET 2 MG PO (09:06)
[2021-03-20] MEDS: Loratadine 10 MG TABLET PO (09:07)
[2021-03-20] MEDS: Levothyroxine Sodium 50 MCG TABLET PO (09:07)
[2021-03-20] MEDS: Docusate Sodium 100 MG CAPSULE PO (09:07)
[2021-03-20] MEDS: Lactase TABLET 1 TAB PO ×2 (09:07→12:22)
[2021-03-20] MEDS: ARIPiprazole 30 MG TABLET PO (09:07)
[2021-03-20] MEDS: Sertraline HCL 50 MG TABLET 150 MG PO (09:07)
--- NOTE | 2021-03-20 12:15 | P.DS_ITS ---
DS: Providers Provider Date of Service: 03/20/21 Date of admission: 02/26/21 13:10 Primary care physician: Geoff Shepard MD Consults: 02/26/21 14:19 Consult to Hospitalist Routine Consulting Provider: Hospitalist Reason For Exam: admission H&P for M3 DS: Diagnosis Discharge Diagnosis (1) Schizoaffective disorder, bipolar type: Status: Acute (2) PTSD (post-traumatic stress disorder): Status: Acute DS: Medications Discharge Medications Home Medications: Home Medications Medication Instructions Recorded Confirmed aripiprazole [Abilify] 30 mg PO DAILY 02/26/21 02/26/21 benztropine 2 mg PO BID 02/26/21 02/26/21 clonazepam 0.5 mg PO BID 02/26/21 02/26/21 clonidine HCl 0.1 mg PO BEDTIME 02/26/21 02/26/21 divalproex [Depakote ER] 1,250 mg PO BEDTIME 02/26/21 02/26/21 docusate sodium 100 mg PO BID 02/26/21 02/26/21 haloperidol [Haldol] 5 mg PO DAILY 02/26/21 02/26/21 haloperidol [Haldol] 15 mg PO BEDTIME 02/26/21 02/26/21 lactase 3,000 unit TIDWMEAL 02/26/21 02/26/21 levothyroxine 50 mcg PO DAILY@0630 02/26/21 02/26/21 lithium carbonate 900 mg PO BEDTIME 02/26/21 02/26/21 loratadine 10 mg PO DAILY 02/26/21 02/26/21 oxybutynin chloride 10 mg PO DAILY 02/26/21 02/26/21 sertraline 150 mg PO DAILY 02/26/21 02/26/21 Previous Rx's Medication Instructions Recorded clonazepam 0.5 mg PO BEDTIME 30 Days #30 tab 03/20/21 haloperidol 5 mg PO BEDTIME 30 Days #30 tab 03/20/21 lithium carbonate 750 mg PO BEDTIME 30 Days #75 tab 03/20/21 Discharge Plan Discharge Patient Disposition: Home, Self-Care Discharge Diagnosis: Schizoaffective Disorder, Bipolar Type Referrals: Dr. Brunner (Psychiatry) [Other] - 04/08/21 11:00 am (Telehealth Appointment) Nancy Washington (Therapy) [Other] - 03/24/21 3:00 pm (Telehealth Appointment) Geoff Shepard MD [Primary Care Provider] - 03/25/21 8:20 am (in-person) Discharge Medications: New clonazepam 0.5 mg Tablet 0.5 mg PO BEDTIME 30 Days Qty: 30 RF: 0 haloperidol 5 mg tablet 5 mg PO BEDTIME 30 Days Qty: 30 RF: 0 lithium carbonate 300 mg tablet extended release 300 mg PO BEDTIME 30 Days Qty: 30 RF: 0 lithium carbonate 450 mg tablet extended release 450 mg PO BEDTIME 30 Days Qty: 30 RF: 0 clonazepam [Klonopin] 0.5 mg tablet 0.5 mg PO BEDTIME 30 Days Qty: 30 RF: 0 haloperidol 5 mg Tablet 5 mg PO BEDTIME 30 Days Qty: 30 RF: 0 lithium carbonate 300 mg Tablet 750 mg PO BEDTIME 30 Days Qty: 75 RF: 0 haloperidol decanoate [Haldol Decanoate] 100 mg/mL solution 100 mg IM Q3W 21 Days Qty: 1 RF: 0 Continued aripiprazole [Abilify] 30 mg Tablet 30 mg PO DAILY RF: 0 divalproex [Depakote ER] 250 mg Tablet Extended Release 24 Hr 1,250 mg PO BEDTIME RF: 0 clonidine HCl 0.1 mg Tablet 0.1 mg PO BEDTIME RF: 0 benztropine 2 mg Tablet 2 mg PO BID RF: 0 lactase 3,000 unit Tablet 3,000 unit TIDWMEAL RF: 0 oxybutynin chloride 10 mg Tablet Extended Release 24hr 10 mg PO DAILY RF: 0 levothyroxine 50 mcg Tablet 50 mcg PO DAILY@0630 RF: 0 docusate sodium 100 mg Capsule 100 mg PO BID RF: 0 sertraline 50 mg Tablet 150 mg PO DAILY RF: 0 loratadine 10 mg Tablet 10 mg PO DAILY RF: 0 Discontinued lithium carbonate 300 mg Tablet 900 mg PO BEDTIME RF: 0 clonazepam 0.5 mg Tablet 0.5 mg PO BID RF: 0 haloperidol [Haldol] 5 mg Tablet 5 mg PO DAILY RF: 0 haloperidol [Haldol] 10 mg Tablet 15 mg PO BEDTIME RF: 0 Discharge Orders: Discharge Order (Routine); Ordered 03/20/21 Ordered By: Deyvi Santiago Diet: advance to usual diet Activity on Discharge: As tolerated Stand Alone Forms: Patient Portal Discharge page, Community Support Care Plan Goals: maintain living in the community with support of long-term staff. Health Concerns: none Plan of Treatment: continue to take medications as prescribed and to attend outpatient appointments as scheduled. Assessment: no longer gravely disabled. able to manage in the community in the long-term setting. Discharge Date/Time: 03/20/21 14:35 Mental Status Exam Mental Status Exam Narrative: dressed in hospital [facility], lying in bed. no PMA/PMR. good eye contact. cooperative with interview. speech nml rate, soft, less mumbled. thoughts apparently linear and logical. affect more flexible, normo-intense, non-labile. mood ok. no SI/HI/AVH expressed. Patient Appearance: Disheveled and Unkempt Patient Orientation: Person and Place Level of Consciousness: Drowsy Patient Behavior: Passive, Asleep (lying in bed , eyes open today, face toward me), Confused and Isolative Mood Description: Apathetic Affect Description: Flat Patient Cognition Impaired: Yes Ability to Follow Directions: Fair Speech Pattern: Soft-Spoken and Mumbled DS: Summary Hospital Course Hospital Course: Per records from [facility] [place] -- patient has PMH of schizophrenia, bipolar disorder, PTSD, HTN, Hypothyroidism and is a resident of a long-term. She wasn sent to [facility] for evaluation after trying to elope from the long-term. She appeared to be responding to an internal stimuli. She was reportedly far off her baseline on the day she presented to [facility]. She underwent medical evaluation after which she was medically cleared and a psych bed search was initiated. She was subsequently transferred to [facility]. Precis: restarted/continued outpt meds. levels after 5 days (03/03) show VPA therapeutic at 87 and lithium supra-therapeutic at 1.49. lithium dosing decreased from 900 mg QHS to 750 mg QHS as of 03/04. ammonia WNL. lithium 03/10 1.05. as pt has been unable to sign in voluntarily due to lacking capacity, commitment paperwork was filed. obtained nomi's order. haldol decanoate 100 mg was administered 03/10. pt's initial presentation may have been related to lithium toxicity. per residential staff assessment on 03/11, pt was not yet at her baseline. refused meds once timothy of 03/10 for unclear reasons. 03/12 a.m., klonopin dosing reduced from 0.5 mg daily to 0.25 mg daily in effort to reduce sedation. 03/13 morning haldol dose of 5 mg discontinued (Haldol Dec 100 mg given 03/10) also in interest of reducing morning sedation. commitment hearing rescheduled for saturday 03/24. 03/16 appeared more engageable; long-term staff visited her once again 03/18 and felt she was suitable for return to their care. 03/18 morning klonopin dosing discontinued; also cut HS haldol dosing by 5 mg as of 03/17. otherwise continued previous outpt medications. discharged 03/20 at 2 pm to long-term. Time Spent with Patient Time attestation: Total time spent providing and/or coordinating discharge services:
== END 2021-03-20 14:35 | disposition home or self-care (01) | DRG 885 ==
PROVIDERS: Family Medicine; Social Worker; Admitting Provider Psychiatry & Neurology Psychiatry; PCP Internal Medicine; Visit Provider Psychiatry & Neurology Psychiatry
DX: F25.0 Schizoaffective disorder, bipolar type (principal); E03.9 Hypothyroidism, unspecified; F43.10 Post-traumatic stress disorder, unspecified; Z79.890 Hormone replacement therapy; Z79.899 Other long term (current) drug therapy
CPT/HCPCS: 36415; 80048; 80076; 80164; 80178; 81003; 82140; 82310; 82607; 82746; 83970; 84443; 85025

== ENCOUNTER 2024-08-13 19:20 | Inpatient (IN) | payer MEDICARE, MEDICAID, SELFPAY ==
[2024-08-13 19:29] VITALS: BP 154/90; PULSE 97; RESP 16; TEMP 36.4; O2SAT 97; BMI 27.5
[2024-08-13 20:02] LABS: MANUAL DIFF FLAG NO
[2024-08-13 20:03] LABS: Basophils Percent Auto 0.2 % (0-2); Eosinophils Absolute Auto 0.2 X10*3/uL (0.0-0.4); Eosinophils Percent Auto 1.9 % (0-4); Hematocrit 38.2 % (37.0-47.0); Hemoglobin 12.5 g/dl (12.0-16.0); Lymphocytes Absolute Auto 2.7 X10*3/uL (1.2-4.9); Lymphocytes Percent Auto 25.6 % (20-40); Mean Corpuscular HGB Conc 32.7 g/dl (31.0-35.0); Mean Corpuscular Hemoglobin 29.7 pg (27.0-33.0); Mean Corpuscular Volume 90.7 fL (80.0-98.0); Mean Platelet Volume 9.4 fL (9.4-12.3); Monocytes Percent Auto 9.8 % (2-11); Neutrophils Absolute Auto 6.4 x10*3/uL (2.0-8.3); Neutrophils Percent Auto 61.5 % (45-73); Platelet Count 272 X10*3/uL (160-400); Red Blood Count 4.21 X10*6/uL (4.20-5.50); Red Cell Distribution Width 13.4 % (11.0-16.0); White Blood Count 10.5 X10*3/uL (4.8-10.8)
[2024-08-13 20:36] LABS: Alanine Aminotransferase 51 U/L (0-31); Albumin Level 4.2 g/dL (3.5-5.0); Alkaline Phosphatase 77 U/L (39-117); Anion Gap 12 (12-20); Aspartate Amino Transferase 35 U/L (5-31); Bilirubin Total 0.2 mg/dL (0.0-1.0); Blood Urea Nitrogen 15 mg/dL (9-16); Calcium 8.8 mg/dL (8.4-10.2); Carbon Dioxide 25 mmol/L (22-29); Chloride 109 mmol/L (96-108); Creatinine Clr Calc Pharmacy 92.1; Estimated Glomerular Filt Rate > 60; Ethanol < 10 mg/dL; Glucose Random 147 mg/dL (60-115); Potassium 3.7 mmol/L (3.3-5.1); Sodium 142 mmol/L (135-145); Total Protein 7.4 g/dL (6.5-8.0)
[2024-08-13 20:39] LABS: Lithium 0.29 mmol/L (0.60-1.20)
[2024-08-13 20:44] LABS: Valproate 73.4 mcg/mL (50.0-100.0)
[2024-08-13] MEDS: HaloperidoL 5 MG TABLET 10 MG PO (21:37)
[2024-08-13] MEDS: diphenhydrAMINE HCL 25 MG CAPSULE 50 MG PO (21:38)
[2024-08-13] MEDS: LORazepam 1 MG TABLET 2 MG PO (21:38)
[2024-08-13 23:02] LABS: Urine Pregnancy NEGATIVE (NEGATIVE)
[2024-08-13 23:03] LABS: UPreg QC Valid YES
[2024-08-13 23:09] LABS: Amphetamine Screen Urine Not Detected (Not Detect); Barbiturates, Urine Not Detected (Not Detect); Benzodiazepines Screen Urine Not Detected (Not Detect); Buprenorphine Scr Not Detected (Not Detect); Cannabinoid Screen Urine Not Detected (Not Detect); Cocaine Screen Urine Not Detected (Not Detect); Fentanyl, urine Not Detected (Not Detect); Methadone Screen, Urine Not Detected (Not Detect); Opiate Screen Urine Not Detected (Not Detect); Oxycodone Screen Urine Not Detected (Not Detect); Phencyclidine Screen Urine Not Detected (Not Detect)
[2024-08-13 23:47] LABS: Appearance Urine Clear; Color Urine Yellow; Glucose Urine UA Negative (Negative); Leukocyte Esterase Urine Negative (Negative); Nitrite Urine Negative (Negative); PH 6.5 (5.0-9.0); Urine Blood Negative (Negative); Urine Ketones Negative (Negative); Urine Protein Negative (Neg-Trace)
--- NOTE | 2024-08-14 | ECG_ITS ---
Test Reason : med clearance Blood Pressure : / mmHG Vent. Rate : 084 BPM Atrial Rate : 084 BPM P-R Int : 146 ms QRS Dur : 086 ms QT Int : 376 ms P-R-T Axes : 057 009 030 degrees QTc Int : 444 ms Normal sinus rhythm Normal ECG No previous ECGs available Referred By: Angelo Olsen Electronically Signed By:AMBER SAMUEL
--- NOTE | 2024-08-14 00:37 | ED.PSYCH ---
HPI - Psych General Chief Complaint: Psychiatric Symptoms Stated Complaint: sect. 12, danger to self Time Seen by Provider: 08/13/24 19:43 Source: patient Mode of arrival: EMS Limitations: no limitations History of Present Illness ED Provider: HPI Narrative: Patient's history of schizophrenia lives in a shelter comes here on section 12 for increased paranoia and danger to herself patient was assessed by [facility] and community and section 12 for inpatient bed search patient has says that she is not getting along with the staff at shelter denies any SI or HI Related Data Home Medications ?Medication ?Instructions ?Recorded ?Confirmed aripiprazole 30 mg tablet (Abilify) 30 mg PO DAILY 02/26/21 08/13/24 docusate sodium 100 mg capsule 100 mg PO BID 02/26/21 08/13/24 levothyroxine 50 mcg tablet 50 mcg PO DAILY@0630 02/26/21 08/13/24 amlodipine 5 mg tablet 5 mg PO DAILY 08/13/24 08/13/24 benztropine 1 mg tablet 1 mg PO DAILY 08/13/24 08/13/24 clonazepam 1 mg tablet 1 mg PO BID 08/13/24 08/13/24 divalproex 500 mg tablet,extended 500 mg PO DAILY 08/13/24 08/13/24 release 24 hr haloperidol 5 mg tablet 5 mg PO BID 08/13/24 08/13/24 haloperidol decanoate 50 mg/mL 50 mg IM Q2W 08/13/24 08/13/24 intramuscular solution hydroxyzine pamoate 50 mg capsule 50 mg PO Q4H PRN anxiety 08/13/24 08/13/24 melatonin 3 mg tablet 3 mg PO BEDTIME PRN insomnia 08/13/24 08/13/24 Previous Rx's ?Medication ?Instructions ?Recorded lithium carbonate 450 mg 450 mg PO BEDTIME 30 days #30 tabs 03/20/21 tablet,extended release Allergies Allergy/AdvReac Type Severity Reaction Status Date / Time No Known Allergies Allergy Unverified 08/13/24 19:33 Review of Systems Review of Systems: Yes all other systems are reviewed and are negative PMFSH Social History Social History Household Members: Other Household Members Other:: Shelter Housing: Other Housing Other:: Shelter Do you presently have visiting nurse or other home services: Yes (assisted) Unable to assess alcohol history related to: Unable to respond Advance Directives: No Advance Directives Information Provided: No Do you have a plan to hurt others: No Plan service: No Sexual orientation: Don't Know Physical Exam Vital Signs: Vital Signs: Last Vital Signs Temp 97.6 F 08/13/24 19:29 Pulse 97 08/13/24 19:29 Resp 16 08/13/24 19:29 BP 154/90 H 08/13/24 19:29 Pulse Ox 97 08/13/24 19:29 O2 Del Method Room Air 08/13/24 19:29 BMI result Body Mass Index 27.5 Appearance: Alert. Oriented X3. No acute distress. Eyes: PERRLA, No Nystagmus ENT: Pharynx normal. Oral Mucosa moist Neck: Normal inspection. Neck supple. CVS: Normal heart rate and rhythm. Pulses normal. Respiratory: No respiratory distress. Equal air entry bilateral, no wheezing/rales/rhonchi Abdomen: Soft and nontender. Bowel sounds are present, no mass palpable, no CVA tenderness Skin: Skin warm and dry. Normal skin color. Normal skin turgor. Extremities: No lower extremity edema. No calf tenderness psych: Denies any hallucination or delusions at this time no SI or HI Neuro: Oriented X 3. No motor deficit. No sensory deficit.No cerebellar signs , cranial nerves II-XII intact Medications Administered Discontinued Medications Generic Name Dose Route Start Last Admin Trade Name Freq PRN Reason Stop Dose Admin Diphenhydramine HCl 50 mg 08/13/24 21:20 08/13/24 21:41 Diphenhydramine Hcl 50 Mg/Ml Vial IM 08/13/24 21:21 Not Given ONCE ONE Diphenhydramine HCl 50 mg 08/13/24 21:34 08/13/24 21:38 Diphenhydramine Hcl 25 Mg Capsule PO 08/13/24 21:35 50 mg ONCE ONE Administration Haloperidol 10 mg 08/13/24 21:34 08/13/24 21:37 Haloperidol 5 Mg Tablet PO 08/13/24 21:35 10 mg ONCE ONE Administration Haloperidol Lactate 5 mg 08/13/24 21:20 08/13/24 21:41 Haloperidol Lactate 5 Mg/Ml Vial IM 08/13/24 21:21 Not Given STAT STA Lorazepam 2 mg 08/13/24 21:20 08/13/24 21:42 Lorazepam 2 Mg/Ml Vial IM 08/13/24 21:21 Not Given STAT STA Lorazepam 2 mg 08/13/24 21:34 08/13/24 21:38 Lorazepam 1 Mg Tablet PO 08/13/24 21:35 2 mg ONCE ONE Administration Medical Decision Making Medical Decision Making MDM Narrative: Patient with schizoaffective disorder section 12 by [facility] for inpatient placement Lab Data [facility] Lab Attestation statement: I reviewed the patient's lab results. 08/13/24 19:58 08/13/24 19:58 Labs: Lab Results 08/13/24 08/13/24 08/13/24 Range/Units 19:58 20:27 22:50 WBC 10.5 (4.8-10.8) X10*3/uL RBC 4.21 (4.20-5.50) X10*6/uL Hgb 12.5 (12.0-16.0) g/dl Hct 38.2 (37.0-47.0) % MCV 90.7 (80.0-98.0) fL MCH 29.7 (27.0-33.0) pg MCHC 32.7 (31.0-35.0) g/dl RDW 13.4 (11.0-16.0) % Plt Count 272 (160-400) X10*3/uL MPV 9.4 (9.4-12.3) fL Immature Gran % (Auto) 1.0 H (0.0-0.4) % Neut % (Auto) 61.5 (45-73) % Lymph % (Auto) 25.6 (20-40) % [place] % (Auto) 9.8 (2-11) % Eos % (Auto) 1.9 (0-4) % Baso % (Auto) 0.2 (0-2) % Lymph # (Auto) 2.7 (1.2-4.9) X10*3/uL [place] # (Auto) 1.0 (0.1-1.2) X10*3/uL Eos # (Auto) 0.2 (0.0-0.4) X10*3/uL Baso # (Auto) 0.0 (0.0-0.2) X10*3/uL Abs Immat Gran (auto) 0.10 H (0.00-0.03) X10*3/uL Absolute Neuts (auto) 6.4 (2.0-8.3) x10*3/uL Absolute Nucleated RBC 0.000 (0.0-0.012) X10*3/uL Nucleated RBC % (auto) 0.0 (0.0-0.2) /100WBC Sodium 142 (135-145) mmol/L Potassium 3.7 (3.3-5.1) mmol/L Chloride 109 H (96-108) mmol/L Carbon Dioxide 25 (22-29) mmol/L Anion Gap 12 (12-20) BUN 15 (9-16) mg/dL Creatinine 0.78 (0.5-1.4) mg/dL Estim Creat Clear Calc 92.1 Estimated GFR > 60 Random Glucose 147 H (60-115) mg/dL Calcium 8.8 D (8.4-10.2) mg/dL Total Bilirubin 0.2 (0.0-1.0) mg/dL AST 35 H (5-31) U/L ALT 51 H (0-31) U/L Alkaline Phosphatase 77 (39-117) U/L Total Protein 7.4 (6.5-8.0) g/dL Albumin 4.2 (3.5-5.0) g/dL Urine Color Yellow Urine Appearance Clear Urine pH 6.5 (5.0-9.0) Ur Specific [place] 1.020 (1.005-1.025) Urine Protein Negative (Neg-Trace) mg/dL Urine Glucose (UA) Negative (Negative) mg/dL Urine Ketones Negative (Negative) mg/dL Urine Blood Negative (Negative) Urine Nitrite Negative (Negative) Ur Leukocyte Esterase Negative (Negative) Urine Test NEGATIVE (NEGATIVE) Urine Opiates Screen Not Detected (Not Detect) Ur Buprenorphine Scrn Not Detected (Not Detect) ng/mL Ur Oxycodone Screen Not Detected (Not Detect) ng/mL Urine Methadone Screen Not Detected (Not Detect) ng/mL Urine Fentanyl Screen Not Detected (Not Detect) Ur Barbiturates Screen Not Detected (Not Detect) Valproic Acid 73.4 (50.0-100.0) mcg/mL Ur Phencyclidine Scrn Not Detected (Not Detect) Ur Amphetamines Screen Not Detected (Not Detect) U Benzodiazepines Scrn Not Detected (Not Detect) [place] 0.29 L (0.60-1.20) mmol/L Urine Cocaine Screen Not Detected (Not Detect) U Marijuana (THC) Screen Not Detected (Not Detect) Ethyl Alcohol < 10 mg/dL Discharge Plan Discharge Clinical Impression: Schizoaffective disorder, bipolar type Patient Disposition: Still a Patient Prescriptions: No Action aripiprazole [Abilify] 30 mg Tablet 30 mg PO DAILY levothyroxine 50 mcg Tablet 50 mcg PO DAILY@0630 docusate sodium 100 mg Capsule 100 mg PO BID lithium carbonate 450 mg tablet extended release 450 mg PO BEDTIME 30 Days Qty: 30 0RF haloperidol 5 mg tablet 5 mg PO BID haloperidol decanoate 50 mg/mL solution 50 mg IM Q2W clonazepam 1 mg tablet 1 mg PO BID hydroxyzine pamoate 50 mg capsule 50 mg PO Q4H PRN (Reason: anxiety) amlodipine 5 mg tablet 5 mg PO DAILY divalproex 500 mg tablet extended release 24 hr 500 mg PO DAILY melatonin 3 mg tablet 3 mg PO BEDTIME PRN (Reason: insomnia) benztropine 1 mg tablet 1 mg PO DAILY Print Language: [place]
[2024-08-14 06:10] VITALS: BP 134/85; PULSE 80; RESP 16; TEMP 36.6; O2SAT 96
--- NOTE | 2024-08-14 06:12 | PC.NURSE ---
Patient slept 2 hours, up most part of the night, no distress observed/reported, meds and meals compliant, disposition per [facility] is section 12 inpatient bed search, med rec completed/pending provider's approval but needs psychiatric med review due to recent med changes, thought content disorganized and process tangential, VSS, will continue to monitor
[2024-08-14 08:02] VITALS: BP 136/94; PULSE 92; RESP 16; TEMP 36.2; O2SAT 95
--- NOTE | 2024-08-14 09:18 | PC.NURSE ---
pt requesting to take a shower at this time. pt provided w/ hygiene products.
[2024-08-14] MEDS: diphenhydrAMINE HCL 50 MG/ML VIAL IM ×2 (09:25→11:12)
[2024-08-14] MEDS: LORazepam 2 MG/ML VIAL IM ×2 (09:25→11:12)
[2024-08-14] MEDS: Haloperidol Lactate 5 MG/ML VIAL IM (09:25)
--- NOTE | 2024-08-14 09:25 | PC.NURSE ---
pt found to be throwing hygiene products and screaming in the bathroom. upon this RN and tech entering, pt making incomprehensible speech. pt seemingly delusional/having visual hallucinations. pt then started screaming that the floor is moving! pt difficult to redirect/refusing to put on hospital attire standing in the bathroom naked. security then called in attempts to deescalate situation. pt still difficult to redirect despite security being bedside. no PO PRN medications noted in the MAR at this time. Dr. Olsen then called bedside. attempted to deescalate situation. pt continuously screaming and remaining uncooperative. chemical restraint administered at 0925. see restraint paperwork for further details.
--- NOTE | 2024-08-14 09:39 | PC.NURSE ---
pt now sleeping in no apparent distress s/p medication administration. light dimmed to promote comfort. respirations even/unlabored. plan of care ongoing.
--- NOTE | 2024-08-14 09:48 | PC.NURSE ---
pt woke up agitated and uncooperative attempting to elope out of security door. pt difficult to to redirect. security called for assistance. pt now resting back in room yelling out inaudible words. pt provided w/ warm blankets to promote comfort. plan of care ongoing.
[2024-08-14] MEDS: Haloperidol Lactate 5 MG/ML VIAL 10 MG IM (11:12)
--- NOTE | 2024-08-14 11:12 | PC.NURSE ---
pt woke up from sleep agitated/combative/uncooperative/attempting to elope from the pod smashing on security door. pt difficult to redirect. screaming at pod staff as well as security. MD called to bedside. chemical restraint administered per provider order. effectiveness pending. see restraint paperwork for further details.
--- NOTE | 2024-08-14 12:55 | MHC.CARE ---
Pt has been reassessed, she remains an inpatient psychiatric bedsearch.
[2024-08-14] MEDS: chlorproMAZINE HCl 25 MG/ML AMPUL 50 MG IM (15:22)
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
--- NOTE | 2024-08-14 16:10 | PC.NURSE ---
pt having psychiatric consult completed at this time.
--- NOTE | 2024-08-14 17:20 | PC.NURSE ---
tech attempted to obtain labs at this time - pt refused. provider notified/aware.
[2024-08-14 18:12] VITALS: BP 127/85; PULSE 104; RESP 18; TEMP 36.4; O2SAT 96
[2024-08-14 20:05] VITALS: BP 165/89; PULSE 93; RESP 18; O2SAT 98
[2024-08-14] MEDS: Lithium Carbonate ER 450 MG TABLET.ER PO (20:05)
[2024-08-14] MEDS: cloNIDine HCL 0.1 MG TABLET PO (20:05)
[2024-08-14] MEDS: LORazepam 1 MG TABLET PO (20:05)
[2024-08-14] MEDS: HaloperidoL 5 MG TABLET PO (20:05)
[2024-08-14] MEDS: Divalproex Sodium 500 MG TABLET.DR PO (20:05)
[2024-08-14] MEDS: OLANZapine ODT 10 MG TAB.RAPDIS TRANSLINGU (23:21)
--- NOTE | 2024-08-15 05:37 | PC.NURSE ---
Patient slept through the night, meds and meals compliant, no major behavior and safety concerns, patient thought content is still disorganized and thought process tangential, disposition per [facility] is section 12 inpatient bed search, VSS, will continue to monitor
--- NOTE | 2024-08-15 08:16 | PHA.MEDREC ---
Addendum entered by Yarely Lewis RPh 08/15/24 08:36: reviewed by [facility], levothyroxine has been filled for 75mcg since Aug 2023 and haloperidol injection rx says next dose due 08/16 and psychiatry notes confirm the same. Original Note: Pharmacy Consult ? Medication Reconciliation Pharmacy has reviewed the medication reconciliation done by nursing. claims match med list except for Levothyroxine med rec had 50 mcg , patient has claims for Levothyroxine 75mcg only updated med rec.
[2024-08-15] MEDS: HaloperidoL 5 MG TABLET PO ×2 (09:12→21:01)
[2024-08-15] MEDS: cloNIDine HCL 0.1 MG TABLET PO ×2 (09:12→21:01)
[2024-08-15] MEDS: Divalproex Sodium 500 MG TABLET.DR PO ×2 (09:12→21:01)
[2024-08-15 09:30] VITALS: BP 122/79; PULSE 81; RESP 18; O2SAT 99
--- NOTE | 2024-08-15 10:44 | PC.NURSE ---
Pt awake this morning and ate breakfast. Started becoming agitated and reported a girl coming in her room and taking her baby. Security called for standby however pt able to be verbally redirected and deescalated by this RN. Agreeable to vital signs and AM meds. Pt ambulatory around unit talking to self and occasionally crying but able to calm self and able to make needs known. Took shower and in common area at this time.
[2024-08-15] MEDS: LORazepam 1 MG TABLET PO (15:49)
[2024-08-15] MEDS: OLANZapine ODT 10 MG TAB.RAPDIS TRANSLINGU (15:49)
--- NOTE | 2024-08-15 15:53 | PC.NURSE ---
pt had been keeping to her room most of the morning and early afternoon, ate lunch and took a nap, awoke and threw her tray with food against the wall, was upset and talking fast and seemed to be wanting to go home, pt had urinated on herself and her linens,eventually allowed her room to be cleaned and changed her clothes, had gone to the door x 1 and attempted to leave, back to her room willingly and without intervention, eventually took prn miguel timmons ativan and went upstairs with staff
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
[2024-08-15 20:30] VITALS: BP 109/60; PULSE 90; RESP 14; TEMP 36.4; O2SAT 97
[2024-08-15] MEDS: Lithium Carbonate ER 450 MG TABLET.ER PO (21:01)
[2024-08-16 07:00] VITALS: BMI 37.4
[2024-08-16 08:00] VITALS: BP 133/84; PULSE 85; RESP 16; TEMP 36.8; O2SAT 93
[2024-08-16 08:33] VITALS: BP 133/84
[2024-08-16] MEDS: cloNIDine HCL 0.1 MG TABLET PO ×2 (08:33→21:09)
[2024-08-16] MEDS: Divalproex Sodium 500 MG TABLET.DR PO ×2 (08:33→21:09)
[2024-08-16] MEDS: HaloperidoL 5 MG TABLET PO ×2 (08:34→21:09)
[2024-08-16 09:08] LABS: Alanine Aminotransferase 51 U/L (0-31); Albumin Level 4.2 g/dL (3.5-5.0); Alkaline Phosphatase 92 U/L (39-117); Anion Gap 16 (12-20); Aspartate Amino Transferase 35 U/L (5-31); Bilirubin Total 0.3 mg/dL (0.0-1.0); Blood Urea Nitrogen 14 mg/dL (9-16); Calcium 9.7 mg/dL (8.4-10.2); Carbon Dioxide 21 mmol/L (22-29); Chloride 110 mmol/L (96-108); Creatinine Clr Calc Pharmacy 89.8; Estimated Glomerular Filt Rate > 60; Glucose Random 126 mg/dL (60-115); Potassium 4.6 mmol/L (3.3-5.1); Sodium 142 mmol/L (135-145); Total Protein 7.8 g/dL (6.5-8.0)
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
[2024-08-16] MEDS: Haloperidol Decanoate 50 MG/ML VIAL IM (11:28)
[2024-08-16] MEDS: OLANZapine ODT 10 MG TAB.RAPDIS TRANSLINGU (13:25)
[2024-08-16] MEDS: LORazepam 1 MG TABLET PO ×2 (13:25→21:08)
[2024-08-16] MEDS: hydrOXYzine HCL 25 MG TABLET PO (13:25)
[2024-08-16 20:00] VITALS: BP 161/73; PULSE 95; RESP 16; TEMP 36.6; O2SAT 96
[2024-08-16] MEDS: clonazePAM 0.5 MG TABLET PO (21:08)
[2024-08-16 21:09] VITALS: BP 161/73
[2024-08-16] MEDS: Lithium Carbonate ER 450 MG TABLET.ER PO (21:09)
[2024-08-16] MEDS: Docusate Sodium 100 MG CAPSULE PO (21:09)
--- NOTE | 2024-08-17 07:15 | PC.NURSE ---
Patient declined Levothyroxine
[2024-08-17 08:00] VITALS: BP 141/77; PULSE 79; RESP 16; TEMP 36.6; O2SAT 99
[2024-08-17 09:03] VITALS: BP 141/77
[2024-08-17] MEDS: clonazePAM 0.5 MG TABLET PO ×2 (09:03→20:46)
[2024-08-17] MEDS: cloNIDine HCL 0.1 MG TABLET PO ×2 (09:03→20:46)
[2024-08-17] MEDS: ARIPiprazole 30 MG TABLET PO (09:03)
[2024-08-17] MEDS: Divalproex Sodium 500 MG TABLET.DR PO ×2 (09:03→20:46)
[2024-08-17] MEDS: Docusate Sodium 100 MG CAPSULE PO ×2 (09:03→20:46)
[2024-08-17 09:04] VITALS: BP 141/77
[2024-08-17] MEDS: Benztropine Mesylate 1 MG TABLET PO (09:04)
[2024-08-17] MEDS: amLODIPine Besylate 5 MG TABLET PO (09:04)
[2024-08-17] MEDS: HaloperidoL 5 MG TABLET PO ×2 (09:05→20:46)
[2024-08-17] MEDS: Levothyroxine Sodium 75 MCG TABLET PO (09:05)
--- NOTE | 2024-08-17 10:27 | HO.PSYCHPN ---
Subjective Subjective Date of Service: 08/17/24 Reason For Visit: Schizoaffective disorder, bipolar type Subjective Notes: Section 12B Healthcare Proxy: No Guardianship: No Medical Problems Affecting Mental Status: No Interim History: Team report pt was incontinent of stool last evening. She also was presenting with sx of psychosis. Slept 7 hours. Appears calmer today, compliant with medicine, had MINER. Accepting her Yordy's regime. At one point dancing to music in the kitchen, appearing calm, content and pleased to be hearing music. Visable in milieu, periods of distress appear brief today. Medication Compliance: Yes Side effects from medications: No Attending Groups: Intermittent Review of Systems Acute medical concerns: No Review of Systems Review of Systems Yes all other systems are reviewed and are negative Mental Status Exam Mental Status Exam Patient Appearance: Appropriate Patient Orientation: Person and Place Level of Consciousness: Alert Patient Behavior: Talkative, Cooperative, Anxious, Distractible and Good Eye Contact Mood Description: Depressed, Anxious and Labile Affect Description: Anxious and Labile Patient Cognition Impaired: Yes Ability to Follow Directions: Good Speech Pattern: Perseverating, Spontaneous Speech, Soft-Spoken, Delayed and Pressured (mild) Memory Description: Episodic Impaired Hallucinations: Auditory and Visual Delusions: Paranoid Ideation and Present Perceptual Disturbances: Depersonalization and Derealization Thought Process: Distracted and Rumination Thought Content: positive for Circumstantial Depressive Symptoms: Increased Irritability, Unhappiness, Thoughts of /Suicide (pt denies when we met) and Low Self Esteem Judgement: Poor Diagnostics Vital Signs (24Hr): Vital Signs - 24 hr 08/16/24 20:00 08/16/24 21:09 08/17/24 08:00 Temperature 97.8 F 97.8 F Pulse Rate 95 79 Respiratory Rate 16 16 Blood Pressure 161/73 H 161/73 H 141/77 H Pulse Oximetry 96 99 Oxygen Delivery Method Room Air Room Air 08/17/24 09:03 08/17/24 09:04 Temperature Pulse Rate Respiratory Rate Blood Pressure 141/77 H 141/77 H Pulse Oximetry Oxygen Delivery Method BMI result Body Mass Index 37.4 Labs 08/13/24 19:58 08/16/24 08:08 Labs: Laboratory Results - last 48 hr 08/16/24 08:08 Sodium 142 Potassium 4.6 D Chloride 110 H Carbon Dioxide 21 L Anion Gap 16 BUN 14 Creatinine 0.80 Estim Creat Clear Calc 89.8 Estimated GFR > 60 Random Glucose 126 H Calcium 9.7 D Total Bilirubin 0.3 AST 35 H ALT 51 H Alkaline Phosphatase 92 Total Protein 7.8 Albumin 4.2 Medications Medications Current Medications Acetaminophen (Acetaminophen 325 Mg Tablet) 650 mg PO Q6H PRN PRN Reason: Headache/Pain Mild Scale (1-3) Al Hydroxide/Mg Hydroxide (Magnesium Hydrox/Alum Hydrox 30 Ml Oral.Susp) 30 ml PO Q6H PRN PRN Reason: Heartburn/Nausea Amlodipine Besylate (Amlodipine Besylate 5 Mg Tablet) 5 mg PO DAILY COUNTS [facility]CLUDE 234 BEDS AT [facility]; Protocol Last Admin: 08/17/24 09:04 Dose: 5 mg Aripiprazole (Aripiprazole 30 Mg Tablet) 30 mg PO DAILY COUNTS INCLUDE 234 BEDS AT THE [facility] Last Admin: 08/17/24 09:03 Dose: 30 mg Benztropine Mesylate (Benztropine Mesylate 1 Mg Tablet) 1 mg PO DAILY COUNTS INCLUDE 234 BEDS AT THE [facility] Last Admin: 08/17/24 09:04 Dose: 1 mg Clonazepam (Clonazepam 0.5 Mg Tablet) 0.5 mg PO BID COUNTS INCLUDE 234 BEDS AT THE [facility] Last Admin: 08/17/24 09:03 Dose: 0.5 mg Clonidine HCl (Clonidine Hcl 0.1 Mg Tablet) 0.1 mg PO BID COUNTS INCLUDE 234 BEDS AT THE [facility]; Protocol Last Admin: 08/17/24 09:03 Dose: 0.1 mg Divalproex Sodium (Divalproex Sodium 500 Mg Tablet.Dr) 500 mg PO BID COUNTS INCLUDE 234 BEDS AT THE [facility] Last Admin: 08/17/24 09:03 Dose: 500 mg Docusate Sodium (Docusate Sodium 100 Mg Capsule) 100 mg PO BID COUNTS INCLUDE 234 BEDS AT THE [facility] Last Admin: 08/17/24 09:03 Dose: 100 mg Haloperidol (Haloperidol 5 Mg Tablet) 5 mg PO BID COUNTS INCLUDE 234 BEDS AT THE [facility] Last Admin: 08/17/24 09:05 Dose: 5 mg Haloperidol Decanoate (Haloperidol Decanoate 50 Mg/Ml Vial) 50 mg IM Q14D COUNTS INCLUDE 234 BEDS AT THE [facility] Last Admin: 08/16/24 11:28 Dose: 50 mg Hydroxyzine HCl (Hydroxyzine Hcl 25 Mg Tablet) 25 mg PO Q6H PRN PRN Reason: Anxiety Last Admin: 08/16/24 13:25 Dose: 25 mg Levothyroxine Sodium (Levothyroxine Sodium 75 Mcg Tablet) 75 mcg PO DAILY@0600 COUNTS INCLUDE 234 BEDS AT THE [facility] Last Admin: 08/17/24 09:05 Dose: 75 mcg [place] Carbonate ([place] Carbonate Er 450 Mg Tablet.Er) 450 mg PO BEDTIME [facility] Last Admin: 08/16/24 21:09 Dose: 450 mg Lorazepam (Lorazepam 1 Mg Tablet) 1 mg PO Q6H PRN PRN Reason: moderate anxiety Last Admin: 08/16/24 21:08 Dose: 1 mg Magnesium Hydroxide (Milk Of Magnesia 30 Ml Oral.Susp) 30 ml PO DAILY PRN PRN Reason: Constipation Nicotine (Nicotine 21 Mg Patch.Td24) 21 mg TRANSDERMA DAILY PRN PRN Reason: nicotine cravings Nicotine Polacrilex (Nicotine Polacrilex 2 Mg Gum) 4 mg BUCCAL Q2H PRN PRN Reason: Nicotine Cravings Trazodone HCl (Trazodone Hcl 50 Mg Tablet) 50 mg PO BEDTIME PRN PRN Reason: sleep Allergies Allergies Allergy/AdvReac Type Severity Reaction Status Date / Time No Known Allergies Allergy Unverified 08/13/24 19:33 Assessment & Plan Assessment & Plan (1) PTSD (post-traumatic stress disorder): Status: Acute Code(s): F43.10 - Post-traumatic stress disorder, unspecified (2) Schizoaffective disorder, bipolar type: Status: Acute Code(s): F25.0 - Schizoaffective disorder, bipolar type (3) Intellectual disability: Status: Acute Code(s): F79 - Unspecified intellectual disabilities (4) Hypothyroidism: Status: Acute Code(s): E03.9 - Hypothyroidism, unspecified Plan Intellectual Disability, PTSD, Schizoaffective Disorder, Hypothyroidism. 08/17/24: Support, continue to encourage compliance with Yordy's regime, offer milieu engagement. Plan: Admit, 12B Collateral contact Assist pt to feel safe/integrated in milieu Re-establish regime Diagnostics as needed Discharge planning with her senior living. Reason for continued inpatient stay Substantial Risk for: rapid decompensation Time Spent With Patient Time: Total time managing care of this patient today ____ minutes.
--- NOTE | 2024-08-17 12:27 | PC.NURSE ---
Brown reports already receiving the flu shot this season. I took it because I dont want to get the flu. I will take another one if you want to give it! and laughed.
[2024-08-17 20:00] VITALS: BP 140/75; PULSE 99; RESP 18; TEMP 36.8; O2SAT 95
[2024-08-17] MEDS: Lithium Carbonate ER 450 MG TABLET.ER PO (20:46)
[2024-08-17] MEDS: hydrOXYzine HCL 25 MG TABLET PO (21:49)
[2024-08-17] MEDS: LORazepam 1 MG TABLET PO (21:49)
[2024-08-18 08:00] VITALS: BP 111/61; PULSE 84; RESP 16; TEMP 36.6; O2SAT 96
[2024-08-18 10:18] VITALS: BP 111/61
[2024-08-18] MEDS: Docusate Sodium 100 MG CAPSULE PO ×2 (10:18→20:53)
[2024-08-18] MEDS: Divalproex Sodium 500 MG TABLET.DR PO ×2 (10:18→20:53)
[2024-08-18] MEDS: cloNIDine HCL 0.1 MG TABLET PO ×2 (10:18→20:52)
[2024-08-18 10:19] VITALS: BP 124/74
[2024-08-18] MEDS: HaloperidoL 5 MG TABLET PO ×2 (10:19→20:53)
[2024-08-18] MEDS: ARIPiprazole 30 MG TABLET PO (10:19)
[2024-08-18] MEDS: amLODIPine Besylate 5 MG TABLET PO (10:19)
[2024-08-18] MEDS: clonazePAM 0.5 MG TABLET PO ×2 (10:19→20:53)
[2024-08-18] MEDS: Benztropine Mesylate 1 MG TABLET PO (10:20)
[2024-08-18] MEDS: Levothyroxine Sodium 75 MCG TABLET PO (10:20)
--- NOTE | 2024-08-18 12:34 | P.PNPSI_ITS ---
Subjective Subjective Date of Service: 08/18/24 Reason For Visit: Schizoaffective disorder, bipolar type Subjective Notes: Conditional Voluntary Interim History: Patient was seen and discussed in rounds today. Records and plans were reviewed. She has been eating and sleeping adequately. She has been medication compliant. Has been a little more social. Some brief episodes of crying. Appears to be responding to internal stimuli. Using PRNs effectively. No SI. No changes were made today Review of Systems Review of Systems Yes all other systems are reviewed and are negative Mental Status Exam Mental Status Exam Patient Appearance: Appropriate Patient Orientation: Person and Place Level of Consciousness: Alert Patient Behavior: Talkative, Cooperative, Anxious, Distractible and Good Eye Contact Mood Description: Depressed, Anxious and Labile Affect Description: Anxious and Labile Patient Cognition Impaired: Yes Ability to Follow Directions: Good Speech Pattern: Perseverating, Spontaneous Speech, Soft-Spoken, Delayed and Pressured (mild) Memory Description: Episodic Impaired Hallucinations: Auditory and Visual Delusions: Paranoid Ideation and Present Perceptual Disturbances: Depersonalization and Derealization Thought Process: Distracted and Rumination Thought Content: positive for Circumstantial Depressive Symptoms: Increased Irritability, Unhappiness, Thoughts of /Suicide (pt denies when we met) and Low Self Esteem Judgement: Poor Diagnostics Vital Signs (24Hr): Vital Signs - 24 hr 08/17/24 20:00 08/18/24 08:00 08/18/24 10:18 Temperature 98.2 F 97.8 F Pulse Rate 99 84 Respiratory Rate 18 16 Blood Pressure 140/75 H 111/61 111/61 Pulse Oximetry 95 96 Oxygen Delivery Method Room Air 08/18/24 10:19 Temperature Pulse Rate Respiratory Rate Blood Pressure 124/74 Pulse Oximetry Oxygen Delivery Method BMI result Body Mass Index 37.4 Labs 08/13/24 19:58 08/16/24 08:08 Medications Medications Current Medications Acetaminophen (Acetaminophen 325 Mg Tablet) 650 mg PO Q6H PRN PRN Reason: Headache/Pain Mild Scale (1-3) Al Hydroxide/Mg Hydroxide (Magnesium Hydrox/Alum Hydrox 30 Ml Oral.Susp) 30 ml PO Q6H PRN PRN Reason: Heartburn/Nausea Amlodipine Besylate (Amlodipine Besylate 5 Mg Tablet) 5 mg PO DAILY [facility]; Protocol Last Admin: 08/18/24 10:19 Dose: 5 mg Aripiprazole (Aripiprazole 30 Mg Tablet) 30 mg PO DAILY [facility] Last Admin: 08/18/24 10:19 Dose: 30 mg Benztropine Mesylate (Benztropine Mesylate 1 Mg Tablet) 1 mg PO DAILY [facility] Last Admin: 08/18/24 10:20 Dose: 1 mg Clonazepam (Clonazepam 0.5 Mg Tablet) 0.5 mg PO BID [facility] Last Admin: 08/18/24 10:19 Dose: 0.5 mg Clonidine HCl (Clonidine Hcl 0.1 Mg Tablet) 0.1 mg PO BID [facility]; Protocol Last Admin: 08/18/24 10:18 Dose: 0.1 mg Divalproex Sodium (Divalproex Sodium 500 Mg Tablet.Dr) 500 mg PO BID [facility] Last Admin: 08/18/24 10:18 Dose: 500 mg Docusate Sodium (Docusate Sodium 100 Mg Capsule) 100 mg PO BID [facility] Last Admin: 08/18/24 10:18 Dose: 100 mg Haloperidol (Haloperidol 5 Mg Tablet) 5 mg PO BID [facility] Last Admin: 08/18/24 10:19 Dose: 5 mg Haloperidol Decanoate (Haloperidol Decanoate 50 Mg/Ml Vial) 50 mg IM Q14D [facility] Last Admin: 08/16/24 11:28 Dose: 50 mg Hydroxyzine HCl (Hydroxyzine Hcl 25 Mg Tablet) 25 mg PO Q6H PRN PRN Reason: Anxiety Last Admin: 08/17/24 21:49 Dose: 25 mg Levothyroxine Sodium (Levothyroxine Sodium 75 Mcg Tablet) 75 mcg PO DAILY@0600 [facility] Last Admin: 08/18/24 10:20 Dose: 75 mcg [place] Carbonate ([place] Carbonate Er 450 Mg Tablet.Er) 450 mg PO BEDTIME [facility] Last Admin: 08/17/24 20:46 Dose: 450 mg Lorazepam (Lorazepam 1 Mg Tablet) 1 mg PO Q6H PRN PRN Reason: moderate anxiety Last Admin: 08/17/24 21:49 Dose: 1 mg Magnesium Hydroxide (Milk Of Magnesia 30 Ml Oral.Susp) 30 ml PO DAILY PRN PRN Reason: Constipation Nicotine (Nicotine 21 Mg Patch.Td24) 21 mg TRANSDERMA DAILY PRN PRN Reason: nicotine cravings Nicotine Polacrilex (Nicotine Polacrilex 2 Mg Gum) 4 mg BUCCAL Q2H PRN PRN Reason: Nicotine Cravings Trazodone HCl (Trazodone Hcl 50 Mg Tablet) 50 mg PO BEDTIME PRN PRN Reason: sleep Allergies Allergies Allergy/AdvReac Type Severity Reaction Status Date / Time No Known Allergies Allergy Unverified 08/13/24 19:33 Assessment & Plan Assessment & Plan (1) PTSD (post-traumatic stress disorder): Status: Acute Code(s): F43.10 - Post-traumatic stress disorder, unspecified (2) Schizoaffective disorder, bipolar type: Status: Acute Code(s): F25.0 - Schizoaffective disorder, bipolar type (3) Intellectual disability: Status: Acute Code(s): F79 - Unspecified intellectual disabilities (4) Hypothyroidism: Status: Acute Code(s): E03.9 - Hypothyroidism, unspecified Plan Intellectual Disability, PTSD, Schizoaffective Disorder, Hypothyroidism. 08/17/24: Support, continue to encourage compliance with Yordy's regime, offer milieu engagement. 08/18:Continue current regimen and plans. Plan: Admit, 12B Collateral contact Assist pt to feel safe/integrated in milieu Re-establish regime Diagnostics as needed Discharge planning with her senior care. Reason for continued inpatient stay Substantial Risk for: med/psych decompensation Time Spent With Patient Time: Total time managing care of this patient today ____ minutes.
[2024-08-18 20:00] VITALS: BP 138/90; PULSE 80; RESP 18; O2SAT 96
[2024-08-18] MEDS: hydrOXYzine HCL 25 MG TABLET PO (20:52)
[2024-08-18] MEDS: Lithium Carbonate ER 450 MG TABLET.ER PO (20:53)
--- NOTE | 2024-08-19 09:06 | P.PNPSI_ITS ---
Subjective Subjective Date of Service: 08/19/24 Reason For Visit: Schizoaffective disorder, bipolar type Subjective Notes: Conditional Voluntary Interim History: Patient was seen and discussed in rounds today. Records and plans were reviewed. She slept 4 hours. Some brief episodes of crying reported. Some AVH still present. Little labile at times. Continues to be guarded and paranoid. No complaints. No changes were made today Review of Systems Review of Systems Yes all other systems are reviewed and are negative Mental Status Exam Mental Status Exam Narrative: In today's visit she is alert, oriented and pleasant. Soft-spoken speech. Little eye contact. Affect is contained in subdued. No acute signs of psychosis but reported to be having AVH and responding to internal stimuli. Somewhat guarded and paranoid. Able to move all limbs. No abnormalities of gait. No active SI. No gross cognitive deficits. Judgment is intact Diagnostics Vital Signs (24Hr): Vital Signs - 24 hr 08/18/24 10:18 08/18/24 10:19 08/18/24 20:00 Pulse Rate 80 Respiratory Rate 18 Blood Pressure 111/61 124/74 138/90 H Pulse Oximetry 96 Oxygen Delivery Method Room Air BMI result Body Mass Index 37.4 Labs 08/13/24 19:58 08/16/24 08:08 Medications Medications Current Medications Acetaminophen (Acetaminophen 325 Mg Tablet) 650 mg PO Q6H PRN PRN Reason: Headache/Pain Mild Scale (1-3) Al Hydroxide/Mg Hydroxide (Magnesium Hydrox/Alum Hydrox 30 Ml Oral.Susp) 30 ml PO Q6H PRN PRN Reason: Heartburn/Nausea Amlodipine Besylate (Amlodipine Besylate 5 Mg Tablet) 5 mg PO DAILY [facility]; Protocol Last Admin: 08/18/24 10:19 Dose: 5 mg Aripiprazole (Aripiprazole 30 Mg Tablet) 30 mg PO DAILY [facility] Last Admin: 08/18/24 10:19 Dose: 30 mg Benztropine Mesylate (Benztropine Mesylate 1 Mg Tablet) 1 mg PO DAILY [facility] Last Admin: 08/18/24 10:20 Dose: 1 mg Clonazepam (Clonazepam 0.5 Mg Tablet) 0.5 mg PO BID [facility] Last Admin: 08/18/24 20:53 Dose: 0.5 mg Clonidine HCl (Clonidine Hcl 0.1 Mg Tablet) 0.1 mg PO BID [facility]; Protocol Last Admin: 08/18/24 20:52 Dose: 0.1 mg Divalproex Sodium (Divalproex Sodium 500 Mg Tablet.Dr) 500 mg PO BID [facility] Last Admin: 08/18/24 20:53 Dose: 500 mg Docusate Sodium (Docusate Sodium 100 Mg Capsule) 100 mg PO BID [facility] Last Admin: 08/18/24 20:53 Dose: 100 mg Haloperidol (Haloperidol 5 Mg Tablet) 5 mg PO BID [facility] Last Admin: 08/18/24 20:53 Dose: 5 mg Haloperidol Decanoate (Haloperidol Decanoate 50 Mg/Ml Vial) 50 mg IM Q14D [facility] Last Admin: 08/16/24 11:28 Dose: 50 mg Hydroxyzine HCl (Hydroxyzine Hcl 25 Mg Tablet) 25 mg PO Q6H PRN PRN Reason: Anxiety Last Admin: 08/18/24 20:52 Dose: 25 mg Levothyroxine Sodium (Levothyroxine Sodium 75 Mcg Tablet) 75 mcg PO DAILY@0600 [facility] Last Admin: 08/18/24 10:20 Dose: 75 mcg [place] Carbonate ([place] Carbonate Er 450 Mg Tablet.Er) 450 mg PO BEDTIME [facility] Last Admin: 08/18/24 20:53 Dose: 450 mg Lorazepam (Lorazepam 1 Mg Tablet) 1 mg PO Q6H PRN PRN Reason: moderate anxiety Last Admin: 08/17/24 21:49 Dose: 1 mg Magnesium Hydroxide (Milk Of Magnesia 30 Ml Oral.Susp) 30 ml PO DAILY PRN PRN Reason: Constipation Nicotine (Nicotine 21 Mg Patch.Td24) 21 mg TRANSDERMA DAILY PRN PRN Reason: nicotine cravings Nicotine Polacrilex (Nicotine Polacrilex 2 Mg Gum) 4 mg BUCCAL Q2H PRN PRN Reason: Nicotine Cravings Trazodone HCl (Trazodone Hcl 50 Mg Tablet) 50 mg PO BEDTIME PRN PRN Reason: sleep Allergies Allergies Allergy/AdvReac Type Severity Reaction Status Date / Time No Known Allergies Allergy Unverified 08/13/24 19:33 Assessment & Plan Assessment & Plan (1) PTSD (post-traumatic stress disorder): Status: Acute Code(s): F43.10 - Post-traumatic stress disorder, unspecified (2) Schizoaffective disorder, bipolar type: Status: Acute Code(s): F25.0 - Schizoaffective disorder, bipolar type (3) Intellectual disability: Status: Acute Code(s): F79 - Unspecified intellectual disabilities (4) Hypothyroidism: Status: Acute Code(s): E03.9 - Hypothyroidism, unspecified Plan Intellectual Disability, PTSD, Schizoaffective Disorder, Hypothyroidism. 08/17/24: Support, continue to encourage compliance with Yordy's regime, offer milieu engagement. 08/18:Continue current regimen and plans. Plan: Admit, 12B Collateral contact Assist pt to feel safe/integrated in milieu Re-establish regime Diagnostics as needed Discharge planning with her shelter. Reason for continued inpatient stay Substantial Risk for: med/psych decompensation Time Spent With Patient Time: Total time managing care of this patient today ____ minutes.
[2024-08-19 09:18] VITALS: BP 120/60; PULSE 92; TEMP 36.4; O2SAT 98
[2024-08-19] MEDS: Levothyroxine Sodium 75 MCG TABLET PO (09:29)
[2024-08-19] MEDS: clonazePAM 0.5 MG TABLET PO ×2 (09:29→20:30)
[2024-08-19] MEDS: Divalproex Sodium 500 MG TABLET.DR PO ×2 (09:29→20:31)
[2024-08-19] MEDS: ARIPiprazole 30 MG TABLET PO (09:29)
[2024-08-19] MEDS: Benztropine Mesylate 1 MG TABLET PO (09:29)
[2024-08-19] MEDS: Docusate Sodium 100 MG CAPSULE PO ×2 (09:29→20:31)
[2024-08-19] MEDS: HaloperidoL 5 MG TABLET PO ×2 (09:29→20:30)
[2024-08-19] MEDS: amLODIPine Besylate 5 MG TABLET PO (09:29)
[2024-08-19] MEDS: cloNIDine HCL 0.1 MG TABLET PO ×2 (09:30→20:31)
[2024-08-19] MEDS: LORazepam 1 MG TABLET PO ×2 (10:51→11:06)
[2024-08-19] MEDS: hydrOXYzine HCL 25 MG TABLET PO (12:45)
[2024-08-19 19:54] VITALS: BP 120/64; PULSE 91; RESP 16; TEMP 36.8; O2SAT 98
[2024-08-19] MEDS: Lithium Carbonate ER 450 MG TABLET.ER PO (20:30)
[2024-08-19 20:31] VITALS: BP 120/64
[2024-08-20] MEDS: Levothyroxine Sodium 75 MCG TABLET PO (07:32)
[2024-08-20] MEDS: ARIPiprazole 30 MG TABLET PO (09:10)
[2024-08-20] MEDS: Docusate Sodium 100 MG CAPSULE PO ×2 (09:10→20:31)
[2024-08-20 09:11] VITALS: BP 132/74
[2024-08-20] MEDS: cloNIDine HCL 0.1 MG TABLET PO ×2 (09:11→20:29)
[2024-08-20] MEDS: amLODIPine Besylate 5 MG TABLET PO (09:12)
[2024-08-20] MEDS: Benztropine Mesylate 1 MG TABLET PO (09:12)
[2024-08-20] MEDS: HaloperidoL 5 MG TABLET PO ×2 (09:17→20:31)
[2024-08-20] MEDS: Divalproex Sodium 500 MG TABLET.DR PO ×2 (09:18→20:30)
--- NOTE | 2024-08-20 09:56 | HO.PSYCHPN ---
Subjective Subjective Date of Service: 08/20/24 Reason For Visit: Schizoaffective disorder, bipolar type Subjective Notes: Section 7 Healthcare Proxy: No Guardianship: No Medical Problems Affecting Mental Status: No Interim History: I would like to live with my dad. My guardian would say yes. No, my dad does not come to my prison. Pt asking about discharge today. Reviewed Section 7 with her and discussed treatment. I will take the medicine. Pt has been medicine compliant Medication Compliance: Yes Side effects from medications: No Attending Groups: No Review of Systems Acute medical concerns: No Medical Review of Systems: unchanged Review of Systems Review of Systems denies Yes all other systems are reviewed and are negative Mental Status Exam Mental Status Exam Patient Appearance: Disheveled Patient Orientation: Person and Place Level of Consciousness: Alert Patient Behavior: Talkative and Good Eye Contact Mood Description: Depressed Affect Description: Flat Patient Cognition Impaired: Yes Ability to Follow Directions: Fair Speech Pattern: Garbled (at times) and Spontaneous Speech Memory Description: Episodic Impaired Hallucinations: Auditory Delusions: Paranoid Ideation and Present Thought Process: Rumination Thought Content: positive for Circumstantial Depressive Symptoms: Thoughts of /Suicide (denies) Judgement: Fair Diagnostics Vital Signs (24Hr): Vital Signs - 24 hr 08/19/24 19:54 08/19/24 20:31 08/20/24 09:11 Temperature 98.3 F Pulse Rate 91 Respiratory Rate 16 Blood Pressure 120/64 120/64 132/74 Pulse Oximetry 98 Oxygen Delivery Method Room Air BMI result Body Mass Index 37.4 Labs 08/13/24 19:58 08/16/24 08:08 Medications Medications Current Medications Acetaminophen (Acetaminophen 325 Mg Tablet) 650 mg PO Q6H PRN PRN Reason: Headache/Pain Mild Scale (1-3) Al Hydroxide/Mg Hydroxide (Magnesium Hydrox/Alum Hydrox 30 Ml Oral.Susp) 30 ml PO Q6H PRN PRN Reason: Heartburn/Nausea Amlodipine Besylate (Amlodipine Besylate 5 Mg Tablet) 5 mg PO DAILY [facility]; Protocol Last Admin: 08/20/24 09:12 Dose: 5 mg Aripiprazole (Aripiprazole 30 Mg Tablet) 30 mg PO DAILY [facility] Last Admin: 08/20/24 09:10 Dose: 30 mg Benztropine Mesylate (Benztropine Mesylate 1 Mg Tablet) 1 mg PO DAILY [facility] Last Admin: 08/20/24 09:12 Dose: 1 mg Clonazepam (Clonazepam 0.5 Mg Tablet) 0.5 mg PO BID [facility] Last Admin: 08/19/24 20:30 Dose: 0.5 mg Clonidine HCl (Clonidine Hcl 0.1 Mg Tablet) 0.1 mg PO BID [facility]; Protocol Last Admin: 08/20/24 09:11 Dose: 0.1 mg Divalproex Sodium (Divalproex Sodium 500 Mg Tablet.Dr) 500 mg PO BID [facility] Last Admin: 08/20/24 09:18 Dose: 500 mg Docusate Sodium (Docusate Sodium 100 Mg Capsule) 100 mg PO BID [facility] Last Admin: 08/20/24 09:10 Dose: 100 mg Haloperidol (Haloperidol 5 Mg Tablet) 5 mg PO BID [facility] Last Admin: 08/20/24 09:17 Dose: 5 mg Haloperidol Decanoate (Haloperidol Decanoate 50 Mg/Ml Vial) 50 mg IM Q14D [facility] Last Admin: 08/16/24 11:28 Dose: 50 mg Hydroxyzine HCl (Hydroxyzine Hcl 25 Mg Tablet) 25 mg PO Q6H PRN PRN Reason: Anxiety Last Admin: 08/19/24 12:45 Dose: 25 mg Levothyroxine Sodium (Levothyroxine Sodium 75 Mcg Tablet) 75 mcg PO DAILY@0600 [facility] Last Admin: 08/20/24 07:32 Dose: 75 mcg [place] Carbonate ([place] Carbonate Er 450 Mg Tablet.Er) 450 mg PO BEDTIME [facility] Last Admin: 08/19/24 20:30 Dose: 450 mg Lorazepam (Lorazepam 1 Mg Tablet) 1 mg PO Q6H PRN PRN Reason: moderate anxiety Last Admin: 08/19/24 11:06 Dose: 1 mg Magnesium Hydroxide (Milk Of Magnesia 30 Ml Oral.Susp) 30 ml PO DAILY PRN PRN Reason: Constipation Nicotine (Nicotine 21 Mg Patch.Td24) 21 mg TRANSDERMA DAILY PRN PRN Reason: nicotine cravings Nicotine Polacrilex (Nicotine Polacrilex 2 Mg Gum) 4 mg BUCCAL Q2H PRN PRN Reason: Nicotine Cravings Trazodone HCl (Trazodone Hcl 50 Mg Tablet) 50 mg PO BEDTIME PRN PRN Reason: sleep Allergies Allergies Allergy/AdvReac Type Severity Reaction Status Date / Time No Known Allergies Allergy Unverified 12/16/24 19:33 Assessment & Plan Assessment & Plan (1) PTSD (post-traumatic stress disorder): Status: Acute Code(s): F43.10 - Post-traumatic stress disorder, unspecified (2) Schizoaffective disorder, bipolar type: Status: Acute Code(s): F25.0 - Schizoaffective disorder, bipolar type (3) Intellectual disability: Status: Acute Code(s): F79 - Unspecified intellectual disabilities (4) Hypothyroidism: Status: Acute Code(s): E03.9 - Hypothyroidism, unspecified Plan Intellectual Disability, PTSD, Schizoaffective Disorder, Hypothyroidism. 08/17/24: Support, continue to encourage compliance with Yordy's regime, offer milieu engagement. 08/18:Continue current regimen and plans. 08/20/24: Continue current plan/regime. Plan: Admit, 12B Collateral contact Assist pt to feel safe/integrated in milieu Re-establish regime Diagnostics as needed Discharge planning with her prison. Reason for continued inpatient stay Substantial Risk for: rapid decompensation Time Spent With Patient Time: Total time managing care of this patient today ____ minutes.
[2024-08-20] MEDS: clonazePAM 0.5 MG TABLET PO ×2 (11:44→20:31)
[2024-08-20 20:00] VITALS: BP 144/88; PULSE 105; RESP 16; TEMP 36.8; O2SAT 97
[2024-08-20 20:29] VITALS: BP 144/88
[2024-08-20] MEDS: traZODone HCL 50 MG TABLET PO (20:31)
[2024-08-20] MEDS: Lithium Carbonate ER 450 MG TABLET.ER PO (20:31)
[2024-08-21 07:48] VITALS: RESP 18
[2024-08-21] MEDS: ARIPiprazole 30 MG TABLET PO (10:17)
[2024-08-21] MEDS: Divalproex Sodium 500 MG TABLET.DR PO ×2 (10:18→20:38)
[2024-08-21] MEDS: HaloperidoL 5 MG TABLET PO ×2 (10:18→20:38)
[2024-08-21] MEDS: clonazePAM 0.5 MG TABLET PO ×2 (10:18→20:38)
[2024-08-21] MEDS: Benztropine Mesylate 1 MG TABLET PO (10:18)
[2024-08-21 11:06] VITALS: BP 129/83; PULSE 110; RESP 18; TEMP 36.4; O2SAT 97
[2024-08-21] MEDS: Levothyroxine Sodium 75 MCG TABLET PO (11:07)
[2024-08-21] MEDS: cloNIDine HCL 0.1 MG TABLET PO ×2 (11:07→20:38)
[2024-08-21] MEDS: amLODIPine Besylate 5 MG TABLET PO (11:07)
[2024-08-21] MEDS: Docusate Sodium 100 MG CAPSULE PO ×2 (11:08→20:38)
--- NOTE | 2024-08-21 13:10 | HO.PSYCHPN ---
Subjective Subjective Date of Service: 08/21/24 Reason For Visit: Schizoaffective disorder, bipolar type Subjective Notes: [employer] Healthcare Proxy: No Guardianship: No Medical Problems Affecting Mental Status: No Interim History: Pt asking to discharge and return to father's home. Delusional content at times-talks of a baby who cries, talks of a child who sings. Team reports one episode of behavioral dyscontrol early this a.m. Accepting medicine Appears with internal preoccupation, response to internal stimuli at times when approached. Medication Compliance: Yes Side effects from medications: No Attending Groups: No Review of Systems Acute medical concerns: No Review of Systems Review of Systems Yes all other systems are reviewed and are negative Mental Status Exam Mental Status Exam Patient Appearance: Disheveled Patient Orientation: Person and Place Level of Consciousness: Alert Patient Behavior: Talkative and Good Eye Contact Mood Description: Depressed Affect Description: Flat Patient Cognition Impaired: Yes Ability to Follow Directions: Fair Speech Pattern: Garbled (at times) and Spontaneous Speech Memory Description: Episodic Impaired Hallucinations: Auditory Delusions: Paranoid Ideation and Present Thought Process: Rumination Thought Content: positive for Circumstantial Depressive Symptoms: Thoughts of /Suicide (denies) Judgement: Fair Diagnostics Vital Signs (24Hr): Vital Signs - 24 hr 08/20/24 20:00 08/20/24 20:29 08/21/24 07:48 Temperature 98.3 F Pulse Rate 105 H Respiratory Rate 16 18 Blood Pressure 144/88 H 144/88 H Pulse Oximetry 97 Oxygen Delivery Method Room Air 08/21/24 11:06 Temperature 97.6 F Pulse Rate 110 H Respiratory Rate 18 Blood Pressure 129/83 Pulse Oximetry 97 Oxygen Delivery Method Room Air BMI result Body Mass Index 37.4 Labs 08/13/24 19:58 08/16/24 08:08 Medications Medications Current Medications Acetaminophen (Acetaminophen 325 Mg Tablet) 650 mg PO Q6H PRN PRN Reason: Headache/Pain Mild Scale (1-3) Al Hydroxide/Mg Hydroxide (Magnesium Hydrox/Alum Hydrox 30 Ml Oral.Susp) 30 ml PO Q6H PRN PRN Reason: Heartburn/Nausea Amlodipine Besylate (Amlodipine Besylate 5 Mg Tablet) 5 mg PO DAILY [facility]; Protocol Last Admin: 08/21/24 11:07 Dose: 5 mg Aripiprazole (Aripiprazole 30 Mg Tablet) 30 mg PO DAILY [facility] Last Admin: 08/21/24 10:17 Dose: 30 mg Benztropine Mesylate (Benztropine Mesylate 1 Mg Tablet) 1 mg PO DAILY [facility] Last Admin: 08/21/24 10:18 Dose: 1 mg Clonazepam (Clonazepam 0.5 Mg Tablet) 0.5 mg PO BID [facility] Last Admin: 08/21/24 10:18 Dose: 0.5 mg Clonidine HCl (Clonidine Hcl 0.1 Mg Tablet) 0.1 mg PO BID [facility]; Protocol Last Admin: 08/21/24 11:07 Dose: 0.1 mg Divalproex Sodium (Divalproex Sodium 500 Mg Tablet.Dr) 500 mg PO BID [facility] Last Admin: 08/21/24 10:18 Dose: 500 mg Docusate Sodium (Docusate Sodium 100 Mg Capsule) 100 mg PO BID [facility] Last Admin: 08/21/24 11:08 Dose: 100 mg Haloperidol (Haloperidol 5 Mg Tablet) 5 mg PO BID [facility] Last Admin: 08/21/24 10:18 Dose: 5 mg Haloperidol Decanoate (Haloperidol Decanoate 50 Mg/Ml Vial) 50 mg IM Q14D [facility] Last Admin: 08/16/24 11:28 Dose: 50 mg Hydroxyzine HCl (Hydroxyzine Hcl 25 Mg Tablet) 25 mg PO Q6H PRN PRN Reason: Anxiety Last Admin: 08/19/24 12:45 Dose: 25 mg Levothyroxine Sodium (Levothyroxine Sodium 75 Mcg Tablet) 75 mcg PO DAILY@0600 [facility] Last Admin: 08/21/24 11:07 Dose: 75 mcg [place] Carbonate ([place] Carbonate Er 450 Mg Tablet.Er) 450 mg PO BEDTIME [facility] Last Admin: 08/20/24 20:31 Dose: 450 mg Lorazepam (Lorazepam 1 Mg Tablet) 1 mg PO Q6H PRN PRN Reason: moderate anxiety Last Admin: 08/19/24 11:06 Dose: 1 mg Magnesium Hydroxide (Milk Of Magnesia 30 Ml Oral.Susp) 30 ml PO DAILY PRN PRN Reason: Constipation Nicotine (Nicotine 21 Mg Patch.Td24) 21 mg TRANSDERMA DAILY PRN PRN Reason: nicotine cravings Nicotine Polacrilex (Nicotine Polacrilex 2 Mg Gum) 4 mg [place] Q2H PRN PRN Reason: Nicotine Cravings Trazodone HCl (Trazodone Hcl 50 Mg Tablet) 50 mg PO BEDTIME PRN PRN Reason: sleep Last Admin: 08/20/24 20:31 Dose: 50 mg Allergies Allergies Allergy/AdvReac Type Severity Reaction Status Date / Time No Known Allergies Allergy Unverified 08/13/24 19:33 Assessment & Plan Assessment & Plan (1) PTSD (post-traumatic stress disorder): Status: Acute Code(s): F43.10 - Post-traumatic stress disorder, unspecified (2) Schizoaffective disorder, bipolar type: Status: Acute Code(s): F25.0 - Schizoaffective disorder, bipolar type (3) Intellectual disability: Status: Acute Code(s): F79 - Unspecified intellectual disabilities (4) Hypothyroidism: Status: Acute Code(s): E03.9 - Hypothyroidism, unspecified Plan Intellectual Disability, PTSD, Schizoaffective Disorder, Hypothyroidism. 08/17/24: Support, continue to encourage compliance with Yordy's regime, offer milieu engagement. 08/18:Continue current regimen and plans. 08/21: [place], Valproate levels ordered for the a.m. Plan: Admit, 12B Collateral contact Assist pt to feel safe/integrated in milieu Re-establish regime Diagnostics as needed Discharge planning with her snf. Reason for continued inpatient stay Substantial Risk for: rapid decompensation Time Spent With Patient Time: Total time managing care of this patient today ____ minutes.
[2024-08-21] MEDS: LORazepam 1 MG TABLET PO (18:27)
[2024-08-21 20:00] VITALS: BP 124/66; PULSE 100; TEMP 36.9; O2SAT 93
[2024-08-21 20:38] VITALS: BP 124/66
[2024-08-21] MEDS: Lithium Carbonate ER 450 MG TABLET.ER PO (20:38)
[2024-08-22 08:00] VITALS: BP 138/80; PULSE 100; RESP 18; O2SAT 99
--- NOTE | 2024-08-22 08:53 | P.PNPSI_ITS ---
Subjective Subjective Date of Service: 08/22/24 Reason For Visit: Schizoaffective disorder, bipolar type Subjective Notes: [employer] 7 Healthcare Proxy: No Guardianship: No Medical Problems Affecting Mental Status: No Interim History: I really just want to go home. Pt reports she would like team to work on discharge. Court, [place] 7 was discussed. I am taking my medicine, and I promise I will take it at home. Visable in milieu, some lability which is brief and redirectable with activity. Medication Compliance: Yes Side effects from medications: No Attending Groups: Intermittent Review of Systems Acute medical concerns: No Medical Review of Systems: unchanged Review of Systems Review of Systems denies Yes all other systems are reviewed and are negative Mental Status Exam Mental Status Exam Patient Appearance: Appropriate Patient Orientation: Person and Place Level of Consciousness: Alert Patient Behavior: Talkative and Good Eye Contact Mood Description: Depressed Affect Description: Flat Patient Cognition Impaired: Yes Ability to Follow Directions: Fair Speech Pattern: Garbled (at times) and Spontaneous Speech Memory Description: Episodic Impaired Hallucinations: Auditory Delusions: Paranoid Ideation and Present Thought Process: Rumination Thought Content: positive for Circumstantial Depressive Symptoms: Thoughts of /Suicide (denies) Abnormal Motor Activity Signs and Symptoms: Restlessness (at times) Judgement: Fair Diagnostics Vital Signs (24Hr): Vital Signs - 24 hr 08/21/24 11:06 08/21/24 20:00 08/21/24 20:38 Temperature 97.6 F 98.4 F Pulse Rate 110 H 100 Respiratory Rate 18 Blood Pressure 129/83 124/66 124/66 Pulse Oximetry 97 93 Oxygen Delivery Method Room Air Room Air BMI result Body Mass Index 37.4 Labs 08/13/24 19:58 08/16/24 08:08 Medications Medications Current Medications Acetaminophen (Acetaminophen 325 Mg Tablet) 650 mg PO Q6H PRN PRN Reason: Headache/Pain Mild Scale (1-3) Al Hydroxide/Mg Hydroxide (Magnesium Hydrox/Alum Hydrox 30 Ml Oral.Susp) 30 ml PO Q6H PRN PRN Reason: Heartburn/Nausea Amlodipine Besylate (Amlodipine Besylate 5 Mg Tablet) 5 mg PO DAILY [facility]; Protocol Last Admin: 08/21/24 11:07 Dose: 5 mg Aripiprazole (Aripiprazole 30 Mg Tablet) 30 mg PO DAILY [facility] Last Admin: 08/21/24 10:17 Dose: 30 mg Benztropine Mesylate (Benztropine Mesylate 1 Mg Tablet) 1 mg PO DAILY [facility] Last Admin: 08/21/24 10:18 Dose: 1 mg Clonazepam (Clonazepam 0.5 Mg Tablet) 0.5 mg PO BID [facility] Last Admin: 08/21/24 20:38 Dose: 0.5 mg Clonidine HCl (Clonidine Hcl 0.1 Mg Tablet) 0.1 mg PO BID [facility]; Protocol Last Admin: 08/21/24 20:38 Dose: 0.1 mg Divalproex Sodium (Divalproex Sodium 500 Mg Tablet.Dr) 500 mg PO BID [facility] Last Admin: 08/21/24 20:38 Dose: 500 mg Docusate Sodium (Docusate Sodium 100 Mg Capsule) 100 mg PO BID [facility] Last Admin: 08/21/24 20:38 Dose: 100 mg Haloperidol (Haloperidol 5 Mg Tablet) 5 mg PO BID [facility] Last Admin: 08/21/24 20:38 Dose: 5 mg Haloperidol Decanoate (Haloperidol Decanoate 50 Mg/Ml Vial) 50 mg IM Q14D [facility] Last Admin: 08/16/24 11:28 Dose: 50 mg Hydroxyzine HCl (Hydroxyzine Hcl 25 Mg Tablet) 25 mg PO Q6H PRN PRN Reason: Anxiety Last Admin: 08/19/24 12:45 Dose: 25 mg Levothyroxine Sodium (Levothyroxine Sodium 75 Mcg Tablet) 75 mcg PO DAILY@0600 [facility] Last Admin: 08/22/24 06:26 Dose: Not Given [place] Carbonate ([place] Carbonate Er 450 Mg Tablet.Er) 450 mg PO BEDTIME [facility] Last Admin: 08/21/24 20:38 Dose: 450 mg Lorazepam (Lorazepam 1 Mg Tablet) 1 mg PO Q6H PRN PRN Reason: moderate anxiety Last Admin: 08/21/24 18:27 Dose: 1 mg Magnesium Hydroxide (Milk Of Magnesia 30 Ml Oral.Susp) 30 ml PO DAILY PRN PRN Reason: Constipation Nicotine (Nicotine 21 Mg Patch.Td24) 21 mg TRANSDERMA DAILY PRN PRN Reason: nicotine cravings Nicotine Polacrilex (Nicotine Polacrilex 2 Mg Gum) 4 mg BUCCAL Q2H PRN PRN Reason: Nicotine Cravings Trazodone HCl (Trazodone Hcl 50 Mg Tablet) 50 mg PO BEDTIME PRN PRN Reason: sleep Last Admin: 08/20/24 20:31 Dose: 50 mg Allergies Allergies Allergy/AdvReac Type Severity Reaction Status Date / Time No Known Allergies Allergy Unverified 08/13/24 19:33 Assessment & Plan Assessment & Plan (1) PTSD (post-traumatic stress disorder): Status: Acute Code(s): F43.10 - Post-traumatic stress disorder, unspecified (2) Schizoaffective disorder, bipolar type: Status: Acute Code(s): F25.0 - Schizoaffective disorder, bipolar type (3) Intellectual disability: Status: Acute Code(s): F79 - Unspecified intellectual disabilities (4) Hypothyroidism: Status: Acute Code(s): E03.9 - Hypothyroidism, unspecified Plan Intellectual Disability, PTSD, Schizoaffective Disorder, Hypothyroidism. 08/17/24: Support, continue to encourage compliance with Yordy's regime, offer milieu engagement. 08/18:Continue current regimen and plans. 08/21: [place], Valproate levels ordered for the a.m. 08/22: Continue current regime/plan. Plan: Admit, 12B Collateral contact Assist pt to feel safe/integrated in milieu Re-establish regime Diagnostics as needed Discharge planning with her care home. Reason for continued inpatient stay Substantial Risk for: rapid decompensation Time Spent With Patient Time: Total time managing care of this patient today ____ minutes.
[2024-08-22] MEDS: ARIPiprazole 30 MG TABLET PO (10:54)
[2024-08-22] MEDS: clonazePAM 0.5 MG TABLET PO ×2 (10:54→20:28)
[2024-08-22] MEDS: Docusate Sodium 100 MG CAPSULE PO ×2 (10:54→20:27)
[2024-08-22] MEDS: HaloperidoL 5 MG TABLET PO ×2 (10:54→20:28)
[2024-08-22] MEDS: amLODIPine Besylate 5 MG TABLET PO (10:54)
[2024-08-22] MEDS: Divalproex Sodium 500 MG TABLET.DR PO ×2 (10:54→20:27)
[2024-08-22] MEDS: cloNIDine HCL 0.1 MG TABLET PO ×2 (10:55→20:27)
[2024-08-22] MEDS: Levothyroxine Sodium 75 MCG TABLET PO (10:55)
[2024-08-22] MEDS: Benztropine Mesylate 1 MG TABLET PO (10:55)
[2024-08-22 20:00] VITALS: BP 159/79; PULSE 94; RESP 16; TEMP 36.7; O2SAT 96
[2024-08-22 20:12] VITALS: BP 138/86
[2024-08-22] MEDS: traZODone HCL 50 MG TABLET PO (20:27)
[2024-08-22] MEDS: Lithium Carbonate ER 450 MG TABLET.ER PO (20:27)
[2024-08-22] MEDS: LORazepam 1 MG TABLET PO (22:12)
[2024-08-22] MEDS: hydrOXYzine HCL 25 MG TABLET PO (22:12)
[2024-08-23 10:08] VITALS: BP 122/80; PULSE 90; RESP 20; TEMP 36.7; O2SAT 98
[2024-08-23] MEDS: Benztropine Mesylate 1 MG TABLET PO (10:09)
[2024-08-23] MEDS: clonazePAM 0.5 MG TABLET PO ×2 (10:09→20:46)
[2024-08-23] MEDS: HaloperidoL 5 MG TABLET PO ×2 (10:09→20:46)
[2024-08-23] MEDS: Divalproex Sodium 500 MG TABLET.DR PO ×2 (10:09→20:46)
[2024-08-23] MEDS: Docusate Sodium 100 MG CAPSULE PO ×2 (10:09→20:46)
[2024-08-23] MEDS: amLODIPine Besylate 5 MG TABLET PO (10:09)
[2024-08-23] MEDS: ARIPiprazole 30 MG TABLET PO (10:09)
[2024-08-23] MEDS: cloNIDine HCL 0.1 MG TABLET PO ×2 (10:09→20:46)
[2024-08-23] MEDS: Levothyroxine Sodium 75 MCG TABLET PO (10:09)
[2024-08-23] MEDS: LORazepam 1 MG TABLET PO (10:42)
[2024-08-23] MEDS: hydrOXYzine HCL 25 MG TABLET PO (10:42)
--- NOTE | 2024-08-23 10:57 | HO.PSYCHPN ---
Subjective Subjective Date of Service: 08/23/24 Reason For Visit: Schizoaffective disorder, bipolar type Subjective Notes: Section 7 Healthcare Proxy: No Guardianship: No Medical Problems Affecting Mental Status: No Interim History: Family visited. [employer]itter for pt consulted with her. Pt asks to return home, to the jail house. She is compliant with medicine and treatment and reports she will continue to do so. Currently, some aspects of the current milieu are triggering for her and at times she does respond. This being from her trauma experience, not from psychosis or mood. Medication Compliance: Yes Side effects from medications: No Attending Groups: Intermittent Review of Systems Acute medical concerns: No Review of Systems Review of Systems Yes all other systems are reviewed and are negative Mental Status Exam Mental Status Exam Patient Appearance: Appropriate Patient Orientation: Person and Place Level of Consciousness: Alert Patient Behavior: Talkative and Good Eye Contact Mood Description: Depressed Affect Description: Flat Patient Cognition Impaired: Yes Ability to Follow Directions: Fair Speech Pattern: Garbled (at times) and Spontaneous Speech Memory Description: Episodic Impaired Hallucinations: Auditory Delusions: Paranoid Ideation and Present Thought Process: Rumination Thought Content: positive for Circumstantial Depressive Symptoms: Thoughts of /Suicide (denies) Abnormal Motor Activity Signs and Symptoms: Restlessness (at times) Judgement: Fair Diagnostics Vital Signs (24Hr): Vital Signs - 24 hr 08/22/24 20:00 08/22/24 20:12 08/23/24 10:08 Temperature 98.1 F 98.1 F Pulse Rate 94 90 Respiratory Rate 16 20 Blood Pressure 159/79 H 138/86 122/80 Pulse Oximetry 96 98 Oxygen Delivery Method Room Air Room Air BMI result Body Mass Index 37.4 Labs 08/13/24 19:58 08/16/24 08:08 Medications Medications Current Medications Acetaminophen (Acetaminophen 325 Mg Tablet) 650 mg PO Q6H PRN PRN Reason: Headache/Pain Mild Scale (1-3) Al Hydroxide/Mg Hydroxide (Magnesium Hydrox/Alum Hydrox 30 Ml Oral.Susp) 30 ml PO Q6H PRN PRN Reason: Heartburn/Nausea Amlodipine Besylate (Amlodipine Besylate 5 Mg Tablet) 5 mg PO DAILY [facility]; Protocol Last Admin: 08/23/24 10:09 Dose: 5 mg Aripiprazole (Aripiprazole 30 Mg Tablet) 30 mg PO DAILY [facility] Last Admin: 08/23/24 10:09 Dose: 30 mg Benztropine Mesylate (Benztropine Mesylate 1 Mg Tablet) 1 mg PO DAILY [facility] Last Admin: 08/23/24 10:09 Dose: 1 mg Clonazepam (Clonazepam 0.5 Mg Tablet) 0.5 mg PO BID [facility] Last Admin: 08/23/24 10:09 Dose: 0.5 mg Clonidine HCl (Clonidine Hcl 0.1 Mg Tablet) 0.1 mg PO BID [facility]; Protocol Last Admin: 08/23/24 10:09 Dose: 0.1 mg Divalproex Sodium (Divalproex Sodium 500 Mg Tablet.Dr) 500 mg PO BID [facility] Last Admin: 08/23/24 10:09 Dose: 500 mg Docusate Sodium (Docusate Sodium 100 Mg Capsule) 100 mg PO BID [facility] Last Admin: 08/23/24 10:09 Dose: 100 mg Haloperidol (Haloperidol 5 Mg Tablet) 5 mg PO BID [facility] Last Admin: 08/23/24 10:09 Dose: 5 mg Haloperidol Decanoate (Haloperidol Decanoate 50 Mg/Ml Vial) 50 mg IM Q14D [facility] Last Admin: 08/16/24 11:28 Dose: 50 mg Hydroxyzine HCl (Hydroxyzine Hcl 25 Mg Tablet) 25 mg PO Q6H PRN PRN Reason: Anxiety Last Admin: 08/23/24 10:42 Dose: 25 mg Levothyroxine Sodium (Levothyroxine Sodium 75 Mcg Tablet) 75 mcg PO DAILY@0600 [facility] Last Admin: 08/23/24 10:09 Dose: 75 mcg [place] Carbonate ([place] Carbonate Er 450 Mg Tablet.Er) 450 mg PO BEDTIME [facility] Last Admin: 08/22/24 20:27 Dose: 450 mg Lorazepam (Lorazepam 1 Mg Tablet) 1 mg PO Q6H PRN PRN Reason: moderate anxiety Last Admin: 08/23/24 10:42 Dose: 1 mg Magnesium Hydroxide (Milk Of Magnesia 30 Ml Oral.Susp) 30 ml PO DAILY PRN PRN Reason: Constipation Nicotine (Nicotine 21 Mg Patch.Td24) 21 mg TRANSDERMA DAILY PRN PRN Reason: nicotine cravings Nicotine Polacrilex (Nicotine Polacrilex 2 Mg Gum) 4 mg BUCCAL Q2H PRN PRN Reason: Nicotine Cravings Trazodone HCl (Trazodone Hcl 50 Mg Tablet) 50 mg PO BEDTIME PRN PRN Reason: sleep Last Admin: 08/22/24 20:27 Dose: 50 mg Allergies Allergies Allergy/AdvReac Type Severity Reaction Status Date / Time No Known Allergies Allergy Unverified 08/13/24 19:33 Assessment & Plan Assessment & Plan (1) PTSD (post-traumatic stress disorder): Status: Acute Code(s): F43.10 - Post-traumatic stress disorder, unspecified (2) Schizoaffective disorder, bipolar type: Status: Acute Code(s): F25.0 - Schizoaffective disorder, bipolar type (3) Intellectual disability: Status: Acute Code(s): F79 - Unspecified intellectual disabilities (4) Hypothyroidism: Status: Acute Code(s): E03.9 - Hypothyroidism, unspecified Plan Intellectual Disability, PTSD, Schizoaffective Disorder, Hypothyroidism. 08/17/24: Support, continue to encourage compliance with Yordy's regime, offer milieu engagement. 08/18:Continue current regimen and plans. 08/21: [place], Valproate levels ordered for the a.m. 08/23: Begin discharge planning. Plan: Admit, 12B Collateral contact Assist pt to feel safe/integrated in milieu Re-establish regime Diagnostics as needed Discharge planning with her detention. Reason for continued inpatient stay Substantial Risk for: rapid decompensation Time Spent With Patient Time: Total time managing care of this patient today ____ minutes.
[2024-08-23 19:46] VITALS: BP 121/91; PULSE 86; TEMP 37.5; O2SAT 98
[2024-08-23] MEDS: Lithium Carbonate ER 450 MG TABLET.ER PO (20:46)
[2024-08-24] MEDS: Levothyroxine Sodium 75 MCG TABLET PO (05:53)
[2024-08-24 08:06] VITALS: BP 136/71; PULSE 91; TEMP 36.4; O2SAT 99
[2024-08-24] MEDS: Docusate Sodium 100 MG CAPSULE PO ×2 (08:14→20:53)
[2024-08-24] MEDS: clonazePAM 0.5 MG TABLET PO ×2 (08:14→20:51)
[2024-08-24] MEDS: Benztropine Mesylate 1 MG TABLET PO (08:14)
[2024-08-24] MEDS: amLODIPine Besylate 5 MG TABLET PO (08:14)
[2024-08-24] MEDS: hydrOXYzine HCL 25 MG TABLET PO (08:14)
[2024-08-24] MEDS: ARIPiprazole 30 MG TABLET PO (08:14)
[2024-08-24] MEDS: HaloperidoL 5 MG TABLET PO ×2 (08:14→20:51)
[2024-08-24] MEDS: Divalproex Sodium 500 MG TABLET.DR PO ×2 (08:14→20:51)
[2024-08-24] MEDS: cloNIDine HCL 0.1 MG TABLET PO ×2 (08:14→20:53)
[2024-08-24 08:48] LABS: Lithium 0.54 mmol/L (0.60-1.20)
[2024-08-24 08:53] LABS: Valproate 48.7 mcg/mL (50.0-100.0)
--- NOTE | 2024-08-24 10:57 | P.PNPSI_ITS ---
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 Responded to team intervention and support. Hi, can I go home yet? Discussed team efforts to have her return to her retirement. Yordy's guardianship today, however this was updated by the court and DM. Pt at times talking about a baby to tw. Medication Compliance: Yes Side effects from medications: No Attending Groups: Intermittent Review of Systems Acute medical concerns: No Medical Review of Systems: unchanged Review of Systems Review of Systems Yes all other systems are reviewed and are negative Mental Status Exam Mental Status Exam Patient Appearance: Appropriate Patient Orientation: Person and Place Level of Consciousness: Alert Patient Behavior: Talkative and Good Eye Contact Mood Description: Depressed Affect Description: Flat Patient Cognition Impaired: Yes Ability to Follow Directions: Fair Speech Pattern: Garbled (at times) and Spontaneous Speech Memory Description: Episodic Impaired Hallucinations: Auditory Delusions: Paranoid Ideation and Present Thought Process: Rumination Thought Content: positive for Circumstantial Depressive Symptoms: Thoughts of /Suicide (denies) Abnormal Motor Activity Signs and Symptoms: Restlessness (at times) Judgement: Fair Diagnostics Vital Signs (24Hr): Vital Signs - 24 hr 08/23/24 19:46 08/24/24 08:06 Temperature 99.5 F 97.5 F Pulse Rate 86 91 Blood Pressure 121/91 H 136/71 Pulse Oximetry 98 99 Oxygen Delivery Method Room Air Room Air BMI result Body Mass Index 37.4 Labs 08/13/24 19:58 08/16/24 08:08 Labs: Laboratory Results - last 48 hr 08/24/24 08:13 Valproic Acid 48.7 L [place] 0.54 L Medications Medications Current Medications Acetaminophen (Acetaminophen 325 Mg Tablet) 650 mg PO Q6H PRN PRN Reason: Headache/Pain Mild Scale (1-3) Al Hydroxide/Mg Hydroxide (Magnesium Hydrox/Alum Hydrox 30 Ml Oral.Susp) 30 ml PO Q6H PRN PRN Reason: Heartburn/Nausea Amlodipine Besylate (Amlodipine Besylate 5 Mg Tablet) 5 mg PO DAILY [facility]; Protocol Last Admin: 08/24/24 08:14 Dose: 5 mg Aripiprazole (Aripiprazole 30 Mg Tablet) 30 mg PO DAILY [facility] Last Admin: 08/24/24 08:14 Dose: 30 mg Benztropine Mesylate (Benztropine Mesylate 1 Mg Tablet) 1 mg PO DAILY [facility] Last Admin: 08/24/24 08:14 Dose: 1 mg Clonazepam (Clonazepam 0.5 Mg Tablet) 0.5 mg PO BID [facility] Last Admin: 08/24/24 08:14 Dose: 0.5 mg Clonidine HCl (Clonidine Hcl 0.1 Mg Tablet) 0.1 mg PO BID [facility]; Protocol Last Admin: 08/24/24 08:14 Dose: 0.1 mg Divalproex Sodium (Divalproex Sodium 500 Mg Tablet.Dr) 500 mg PO BID [facility] Last Admin: 08/24/24 08:14 Dose: 500 mg Docusate Sodium (Docusate Sodium 100 Mg Capsule) 100 mg PO BID [facility] Last Admin: 08/24/24 08:14 Dose: 100 mg Haloperidol (Haloperidol 5 Mg Tablet) 5 mg PO BID [facility] Last Admin: 08/24/24 08:14 Dose: 5 mg Haloperidol Decanoate (Haloperidol Decanoate 50 Mg/Ml Vial) 50 mg IM Q14D [facility] Last Admin: 08/16/24 11:28 Dose: 50 mg Hydroxyzine HCl (Hydroxyzine Hcl 25 Mg Tablet) 25 mg PO Q6H PRN PRN Reason: Anxiety Last Admin: 08/24/24 08:14 Dose: 25 mg Levothyroxine Sodium (Levothyroxine Sodium 75 Mcg Tablet) 75 mcg PO DAILY@0600 [facility] Last Admin: 08/24/24 05:53 Dose: 75 mcg [place] Carbonate ([place] Carbonate Er 450 Mg Tablet.Er) 450 mg PO BEDTIME [facility] Last Admin: 08/23/24 20:46 Dose: 450 mg Lorazepam (Lorazepam 1 Mg Tablet) 1 mg PO Q6H PRN PRN Reason: moderate anxiety Last Admin: 08/23/24 10:42 Dose: 1 mg Magnesium Hydroxide (Milk Of Magnesia 30 Ml Oral.Susp) 30 ml PO DAILY PRN PRN Reason: Constipation Nicotine (Nicotine 21 Mg Patch.Td24) 21 mg TRANSDERMA DAILY PRN PRN Reason: nicotine cravings Nicotine Polacrilex (Nicotine Polacrilex 2 Mg Gum) 4 mg BUCCAL Q2H PRN PRN Reason: Nicotine Cravings Trazodone HCl (Trazodone Hcl 50 Mg Tablet) 50 mg PO BEDTIME PRN PRN Reason: sleep Last Admin: 08/22/24 20:27 Dose: 50 mg Allergies Allergies Allergy/AdvReac Type Severity Reaction Status Date / Time No Known Allergies Allergy Unverified 08/13/24 19:33 Assessment & Plan Assessment & Plan (1) PTSD (post-traumatic stress disorder): Status: Acute Code(s): F43.10 - Post-traumatic stress disorder, unspecified (2) Schizoaffective disorder, bipolar type: Status: Acute Code(s): F25.0 - Schizoaffective disorder, bipolar type (3) Intellectual disability: Status: Acute Code(s): F79 - Unspecified intellectual disabilities (4) Hypothyroidism: Status: Acute Code(s): E03.9 - Hypothyroidism, unspecified Plan Intellectual Disability, PTSD, Schizoaffective Disorder, Hypothyroidism. 08/17/24: Support, continue to encourage compliance with Yordy's regime, offer milieu engagement. 08/18:Continue current regimen and plans. 08/21: [place], Valproate levels ordered for the a.m. 08/24: [place], Valproate levels (not drawn by lab on 08/22) Plan: Admit, 12B Collateral contact Assist pt to feel safe/integrated in milieu Re-establish regime Diagnostics as needed Discharge planning with her retirement. Reason for continued inpatient stay Substantial Risk for: rapid decompensation Time Spent With Patient Time: Total time managing care of this patient today ____ minutes.
[2024-08-24 19:50] VITALS: BP 128/80; PULSE 82; TEMP 36.7; O2SAT 98
[2024-08-24] MEDS: traZODone HCL 50 MG TABLET PO (20:51)
[2024-08-24] MEDS: Lithium Carbonate ER 450 MG TABLET.ER PO (20:52)
[2024-08-25] MEDS: LORazepam 1 MG TABLET PO ×3 (00:54→14:47)
[2024-08-25] MEDS: QUEtiapine Fumarate 50 MG TABLET PO (01:54)
--- NOTE | 2024-08-25 03:07 | PC.NURSE ---
Leoncio became agitated and began yelling out during the shift. She was not redirectable. Provider was notified and Lorazepam 1 mg, Seroquel 50 mg ordered and administered with good effect. Patient sleeping soundly at this time.
[2024-08-25] MEDS: clonazePAM 0.5 MG TABLET PO (14:48)
[2024-08-25] MEDS: HaloperidoL 5 MG TABLET PO (14:48)
[2024-08-25] MEDS: amLODIPine Besylate 5 MG TABLET PO (14:48)
[2024-08-25] MEDS: Benztropine Mesylate 1 MG TABLET PO (14:53)
[2024-08-25] MEDS: ARIPiprazole 30 MG TABLET PO (14:53)
--- NOTE | 2024-08-25 15:18 | HO.PSYCHPN ---
Subjective Subjective Date of Service: 08/25/24 Reason For Visit: Schizoaffective disorder, bipolar type Subjective Notes: [facility] [employer] Proxy: No Guardianship: No Medical Problems Affecting Mental Status: No Interim History: Pt seen, discussed with the team. Plan of care reviewed. Episodic agitation-easily triggered, does refuse meds at times, incontinent at times delusional at times. States someone told her she looked like Jennifer which is upsetting to her and she is currently lost in that thought process. Frustrated about discharge not being soon enough-expressing herself and her frustration as she knows. Responds to team support. Medication Compliance: Intermittent Side effects from medications: No Attending Groups: Intermittent Review of Systems refuses labs Review of Systems Review of Systems Yes Unobtainable due to mental status Mental Status Exam Mental Status Exam Patient Appearance: Fatigued Patient Orientation: Person and Place Level of Consciousness: Alert Patient Behavior: Talkative and Good Eye Contact Mood Description: Labile Affect Description: Labile Ability to Follow Directions: Fair Speech Pattern: Spontaneous Speech Memory Description: Episodic Impaired Hallucinations: Auditory Delusions: Paranoid Ideation and Present Perceptual Disturbances: Depersonalization and Derealization Thought Process: Rumination Thought Content: positive for Perseveration Depressive Symptoms: Increased Anxiety and Increased Irritability Judgement: Fair Diagnostics Vital Signs (24Hr): Vital Signs - 24 hr 08/24/24 19:50 Temperature 98.1 F Pulse Rate 82 Blood Pressure 128/80 Pulse Oximetry 98 Oxygen Delivery Method Room Air BMI result Body Mass Index 37.4 Labs 08/13/24 19:58 08/16/24 08:08 Labs: Laboratory Results - last 48 hr 08/24/24 08:13 Valproic Acid 48.7 L [place] 0.54 L Medications Medications Current Medications Acetaminophen (Acetaminophen 325 Mg Tablet) 650 mg PO Q6H PRN PRN Reason: Headache/Pain Mild Scale (1-3) Al Hydroxide/Mg Hydroxide (Magnesium Hydrox/Alum Hydrox 30 Ml Oral.Susp) 30 ml PO Q6H PRN PRN Reason: Heartburn/Nausea Amlodipine Besylate (Amlodipine Besylate 5 Mg Tablet) 5 mg PO DAILY [facility]; Protocol Last Admin: 08/25/24 14:48 Dose: 5 mg Aripiprazole (Aripiprazole 30 Mg Tablet) 30 mg PO DAILY [facility] Last Admin: 08/25/24 14:53 Dose: 30 mg Benztropine Mesylate (Benztropine Mesylate 1 Mg Tablet) 1 mg PO DAILY [facility] Last Admin: 08/25/24 14:53 Dose: 1 mg Clonazepam (Clonazepam 0.5 Mg Tablet) 0.5 mg PO BID [facility] Last Admin: 08/25/24 14:48 Dose: 0.5 mg Clonidine HCl (Clonidine Hcl 0.1 Mg Tablet) 0.1 mg PO BID [facility]; Protocol Last Admin: 08/25/24 11:54 Dose: Not Given Divalproex Sodium (Divalproex Sodium 500 Mg Tablet.Dr) 500 mg PO BID [facility] Last Admin: 08/25/24 11:57 Dose: Not Given Docusate Sodium (Docusate Sodium 100 Mg Capsule) 100 mg PO BID [facility] Last Admin: 08/25/24 11:57 Dose: Not Given Haloperidol (Haloperidol 5 Mg Tablet) 5 mg PO BID [facility] Last Admin: 08/25/24 14:48 Dose: 5 mg Haloperidol Decanoate (Haloperidol Decanoate 50 Mg/Ml Vial) 50 mg IM Q14D [facility] Last Admin: 08/16/24 11:28 Dose: 50 mg Hydroxyzine HCl (Hydroxyzine Hcl 25 Mg Tablet) 25 mg PO Q6H PRN PRN Reason: Anxiety Last Admin: 08/24/24 08:14 Dose: 25 mg Levothyroxine Sodium (Levothyroxine Sodium 75 Mcg Tablet) 75 mcg PO DAILY@0600 [facility] Last Admin: 08/25/24 10:49 Dose: Not Given [place] Carbonate ([place] Carbonate Er 450 Mg Tablet.Er) 450 mg PO BEDTIME [facility] Last Admin: 08/24/24 20:52 Dose: 450 mg Lorazepam (Lorazepam 1 Mg Tablet) 1 mg PO Q6H PRN PRN Reason: moderate anxiety Last Admin: 08/25/24 14:47 Dose: 1 mg Magnesium Hydroxide (Milk Of Magnesia 30 Ml Oral.Susp) 30 ml PO DAILY PRN PRN Reason: Constipation Nicotine (Nicotine 21 Mg Patch.Td24) 21 mg TRANSDERMA DAILY PRN PRN Reason: nicotine cravings Nicotine Polacrilex (Nicotine Polacrilex 2 Mg Gum) 4 mg [place] Q2H PRN PRN Reason: Nicotine Cravings Trazodone HCl (Trazodone Hcl 50 Mg Tablet) 50 mg PO BEDTIME PRN PRN Reason: sleep Last Admin: 08/24/24 20:51 Dose: 50 mg Allergies Allergies Allergy/AdvReac Type Severity Reaction Status Date / Time No Known Allergies Allergy Unverified 08/13/24 19:33 Assessment & Plan Assessment & Plan (1) PTSD (post-traumatic stress disorder): Status: Acute Code(s): F43.10 - Post-traumatic stress disorder, unspecified (2) Schizoaffective disorder, bipolar type: Status: Acute Code(s): F25.0 - Schizoaffective disorder, bipolar type (3) Intellectual disability: Status: Acute Code(s): F79 - Unspecified intellectual disabilities (4) Hypothyroidism: Status: Acute Code(s): E03.9 - Hypothyroidism, unspecified Plan Intellectual Disability, PTSD, Schizoaffective Disorder, Hypothyroidism. 08/17/24: Support, continue to encourage compliance with Yordy's regime, offer milieu engagement. 08/18:Continue current regimen and plans. 08/21: [place], Valproate levels ordered for the a.m. 08/24: [place], Valproate levels (not drawn by lab on 08/22) 08/25: Refusing labs, meds at times, triggered in milieu Plan: Admit, 12B Collateral contact Assist pt to feel safe/integrated in milieu Re-establish regime Diagnostics as needed Discharge planning with her shelter. Reason for continued inpatient stay Substantial Risk for: rapid decompensation Time Spent With Patient Time: Total time managing care of this patient today ____ minutes.
[2024-08-25 19:39] VITALS: BP 117/73; PULSE 82; TEMP 36.5; O2SAT 95
[2024-08-26] MEDS: LORazepam 1 MG TABLET PO (02:45)
[2024-08-26] MEDS: hydrOXYzine HCL 25 MG TABLET PO (02:45)
[2024-08-26] MEDS: Levothyroxine Sodium 75 MCG TABLET PO (06:00)
[2024-08-26 08:00] VITALS: BP 128/95; PULSE 82; RESP 18; TEMP 36.9; O2SAT 96
[2024-08-26] MEDS: Divalproex Sodium 500 MG TABLET.DR PO ×2 (08:28→21:11)
[2024-08-26] MEDS: HaloperidoL 5 MG TABLET PO ×2 (08:28→21:41)
[2024-08-26] MEDS: ARIPiprazole 30 MG TABLET PO (08:28)
[2024-08-26] MEDS: clonazePAM 0.5 MG TABLET PO ×2 (08:28→21:10)
[2024-08-26] MEDS: cloNIDine HCL 0.1 MG TABLET PO ×2 (08:30→21:48)
[2024-08-26] MEDS: Benztropine Mesylate 1 MG TABLET PO (08:31)
[2024-08-26] MEDS: amLODIPine Besylate 5 MG TABLET PO (08:31)
[2024-08-26] MEDS: Docusate Sodium 100 MG CAPSULE PO ×2 (08:32→21:10)
--- NOTE | 2024-08-26 14:03 | HO.PSYCHPN ---
Subjective Subjective Date of Service: 08/26/24 Reason For Visit: Schizoaffective disorder, bipolar type Guardianship: Yes Interim History: Pt seen, reviewed with team. Labile, triggered in milieu, wanting discharge which we have discussed is being worked on. Refuses labs regularly, exit seeking at times, accepted medicines, team reports overall improved control of behavior. Medication Compliance: Yes Side effects from medications: No Attending Groups: No Review of Systems Acute medical concerns: No Review of Systems Review of Systems No. Mental Status Exam Mental Status Exam Patient Appearance: Fatigued Patient Orientation: Person and Place Level of Consciousness: Alert Patient Behavior: Talkative and Good Eye Contact Mood Description: Labile Affect Description: Labile Ability to Follow Directions: Fair Speech Pattern: Spontaneous Speech Memory Description: Episodic Impaired Hallucinations: Auditory Delusions: Paranoid Ideation and Present Perceptual Disturbances: Depersonalization and Derealization Thought Process: Rumination Thought Content: positive for Perseveration Depressive Symptoms: Increased Anxiety and Increased Irritability Judgement: Fair Diagnostics Vital Signs (24Hr): Vital Signs - 24 hr 08/25/24 19:39 08/26/24 08:00 Temperature 97.7 F 98.5 F Pulse Rate 82 82 Respiratory Rate 18 Blood Pressure 117/73 128/95 H Pulse Oximetry 95 96 Oxygen Delivery Method Room Air Room Air BMI result Body Mass Index 37.4 Labs 08/13/24 19:58 08/16/24 08:08 Medications Medications Current Medications Acetaminophen (Acetaminophen 325 Mg Tablet) 650 mg PO Q6H PRN PRN Reason: Headache/Pain Mild Scale (1-3) Al Hydroxide/Mg Hydroxide (Magnesium Hydrox/Alum Hydrox 30 Ml Oral.Susp) 30 ml PO Q6H PRN PRN Reason: Heartburn/Nausea Amlodipine Besylate (Amlodipine Besylate 5 Mg Tablet) 5 mg PO DAILY [facility]; Protocol Last Admin: 08/26/24 08:31 Dose: 5 mg Aripiprazole (Aripiprazole 30 Mg Tablet) 30 mg PO DAILY [facility] Last Admin: 08/26/24 08:28 Dose: 30 mg Benztropine Mesylate (Benztropine Mesylate 1 Mg Tablet) 1 mg PO DAILY [facility] Last Admin: 08/26/24 08:31 Dose: 1 mg Clonazepam (Clonazepam 0.5 Mg Tablet) 0.5 mg PO BID [facility] Last Admin: 08/26/24 08:28 Dose: 0.5 mg Clonidine HCl (Clonidine Hcl 0.1 Mg Tablet) 0.1 mg PO BID [facility]; Protocol Last Admin: 08/26/24 08:30 Dose: 0.1 mg Divalproex Sodium (Divalproex Sodium 500 Mg Tablet.Dr) 500 mg PO BID [facility] Last Admin: 08/26/24 08:28 Dose: 500 mg Docusate Sodium (Docusate Sodium 100 Mg Capsule) 100 mg PO BID [facility] Last Admin: 08/26/24 08:32 Dose: 100 mg Haloperidol (Haloperidol 5 Mg Tablet) 5 mg PO BID [facility] Last Admin: 08/26/24 08:28 Dose: 5 mg Haloperidol Decanoate (Haloperidol Decanoate 50 Mg/Ml Vial) 50 mg IM Q14D [facility] Last Admin: 08/16/24 11:28 Dose: 50 mg Hydroxyzine HCl (Hydroxyzine Hcl 25 Mg Tablet) 25 mg PO Q6H PRN PRN Reason: Anxiety Last Admin: 08/26/24 02:45 Dose: 25 mg Levothyroxine Sodium (Levothyroxine Sodium 75 Mcg Tablet) 75 mcg PO DAILY@0600 [facility] Last Admin: 08/26/24 06:00 Dose: 75 mcg [place] Carbonate ([place] Carbonate Er 450 Mg Tablet.Er) 450 mg PO BEDTIME [facility] Last Admin: 08/25/24 23:31 Dose: Not Given Lorazepam (Lorazepam 1 Mg Tablet) 1 mg PO Q6H PRN PRN Reason: moderate anxiety Last Admin: 08/26/24 02:45 Dose: 1 mg Magnesium Hydroxide (Milk Of Magnesia 30 Ml Oral.Susp) 30 ml PO DAILY PRN PRN Reason: Constipation Nicotine (Nicotine 21 Mg Patch.Td24) 21 mg TRANSDERMA DAILY PRN PRN Reason: nicotine cravings Nicotine Polacrilex (Nicotine Polacrilex 2 Mg Gum) 4 mg [place] Q2H PRN PRN Reason: Nicotine Cravings Trazodone HCl (Trazodone Hcl 50 Mg Tablet) 50 mg PO BEDTIME PRN PRN Reason: sleep Last Admin: 08/24/24 20:51 Dose: 50 mg Allergies Allergies Allergy/AdvReac Type Severity Reaction Status Date / Time No Known Allergies Allergy Unverified 08/13/24 19:33 Assessment & Plan Assessment & Plan (1) PTSD (post-traumatic stress disorder): Status: Acute Code(s): F43.10 - Post-traumatic stress disorder, unspecified (2) Schizoaffective disorder, bipolar type: Status: Acute Code(s): F25.0 - Schizoaffective disorder, bipolar type (3) Intellectual disability: Status: Acute Code(s): F79 - Unspecified intellectual disabilities (4) Hypothyroidism: Status: Inactive Code(s): E03.9 - Hypothyroidism, unspecified Plan Intellectual Disability, PTSD, Schizoaffective Disorder, Hypothyroidism. 08/17/24: Support, continue to encourage compliance with Yordy's regime, offer milieu engagement. 08/18:Continue current regimen and plans. 08/21: [place], Valproate levels ordered for the a.m. 08/24: [place], Valproate levels (not drawn by lab on 08/22) 08/26: Refuses diagnostics, working on DC. Pt triggered in milieu, thus increase in behaviors. Plan: Admit, 12B Collateral contact Assist pt to feel safe/integrated in milieu Re-establish regime Diagnostics as needed Discharge planning with her jail. Reason for continued inpatient stay Substantial Risk for: rapid decompensation Time Spent With Patient Time: Total time managing care of this patient today ____ minutes.
[2024-08-26 20:00] VITALS: BP 113/74; PULSE 92; TEMP 36.8; O2SAT 96
[2024-08-26] MEDS: Lithium Carbonate ER 450 MG TABLET.ER PO (21:11)
[2024-08-26 21:48] VITALS: BP 113/74
[2024-08-27] MEDS: Levothyroxine Sodium 75 MCG TABLET PO (06:41)
[2024-08-27 08:00] VITALS: BP 119/61; PULSE 77; RESP 18; TEMP 36.8; O2SAT 96
[2024-08-27] MEDS: Divalproex Sodium 500 MG TABLET.DR PO (09:03)
[2024-08-27] MEDS: HaloperidoL 5 MG TABLET PO (09:03)
[2024-08-27] MEDS: clonazePAM 0.5 MG TABLET PO (09:03)
[2024-08-27] MEDS: Benztropine Mesylate 1 MG TABLET PO (09:03)
[2024-08-27] MEDS: ARIPiprazole 30 MG TABLET PO (09:03)
[2024-08-27] MEDS: cloNIDine HCL 0.1 MG TABLET PO (09:03)
[2024-08-27] MEDS: Docusate Sodium 100 MG CAPSULE PO (09:03)
[2024-08-27] MEDS: amLODIPine Besylate 5 MG TABLET PO (09:03)
[2024-08-27 09:06] LABS: Lithium 0.36 mmol/L (0.60-1.20)
[2024-08-27 09:10] LABS: Valproate 44.4 mcg/mL (50.0-100.0)
[2024-08-27] MEDS: LORazepam 1 MG TABLET PO ×2 (09:36→15:43)
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
[2024-08-27 19:52] VITALS: BP 116/66; PULSE 77; TEMP 36.4; O2SAT 98
[2024-08-28] MEDS: Lithium Carbonate ER 450 MG TABLET.ER PO ×2 (01:25→22:24)
[2024-08-28] MEDS: Divalproex Sodium 500 MG TABLET.DR PO ×3 (01:25→22:23)
[2024-08-28] MEDS: clonazePAM 0.5 MG TABLET PO ×3 (01:25→22:24)
[2024-08-28] MEDS: HaloperidoL 5 MG TABLET PO ×3 (01:25→22:23)
[2024-08-28] MEDS: Docusate Sodium 100 MG CAPSULE PO ×3 (01:25→22:23)
[2024-08-28 01:26] VITALS: BP 117/70
[2024-08-28] MEDS: cloNIDine HCL 0.1 MG TABLET PO ×3 (01:26→22:23)
[2024-08-28 01:30] VITALS: BP 117/70; PULSE 83; TEMP 36.6; O2SAT 98
[2024-08-28 08:00] VITALS: BP 117/64; PULSE 80; RESP 16; TEMP 36.5; O2SAT 96
[2024-08-28 08:36] VITALS: BP 117/64
[2024-08-28] MEDS: LORazepam 1 MG TABLET PO ×2 (08:36→22:24)
[2024-08-28] MEDS: Levothyroxine Sodium 75 MCG TABLET PO (08:36)
[2024-08-28] MEDS: ARIPiprazole 30 MG TABLET PO (08:36)
[2024-08-28] MEDS: Benztropine Mesylate 1 MG TABLET PO (08:36)
[2024-08-28] MEDS: amLODIPine Besylate 5 MG TABLET PO (08:36)
[2024-08-28 08:37] VITALS: BP 117/64
--- NOTE | 2024-08-28 11:01 | P.PNPSI_ITS ---
Subjective Subjective Date of Service: 08/28/24 Reason For Visit: Schizoaffective disorder, bipolar type Interim History: With patient; discussed with team; reviewed chart Patient remains intermittently frustrated with low frustration tolerance, sometimes crying in the hallway or screaming in her room. Overall able to be redirected and listening to music seems to be her best coping skill Mental Status Exam Mental Status Exam Patient Appearance: Unkempt Patient Orientation: Person and Place Level of Consciousness: Alert Patient Behavior: Talkative, Restless (intermittenly), Good Eye Contact, Crying (intermittently) and Impulsive Mood Description: Labile Affect Description: Labile Ability to Follow Directions: Fair Speech Pattern: Spontaneous Speech Memory Description: Episodic Impaired Hallucinations: Auditory Delusions: Paranoid Ideation and Present Perceptual Disturbances: Depersonalization and Derealization Thought Process: Rumination Thought Content: positive for Perseveration Judgement and Insight: impaired, but possibly baseline Diagnostics Vital Signs (24Hr): Vital Signs - 24 hr 08/27/24 19:52 08/28/24 01:26 08/28/24 01:30 Temperature 97.5 F 98 F Pulse Rate 77 83 Respiratory Rate Blood Pressure 116/66 117/70 117/70 Pulse Oximetry 98 98 Oxygen Delivery Method Room Air Room Air 08/28/24 08:00 08/28/24 08:36 08/28/24 08:37 Temperature 97.7 F Pulse Rate 80 Respiratory Rate 16 Blood Pressure 117/64 117/64 117/64 Pulse Oximetry 96 Oxygen Delivery Method BMI result Body Mass Index 37.4 Labs 08/13/24 19:58 08/16/24 08:08 Labs: Laboratory Results - last 48 hr 08/27/24 08:45 Valproic Acid 44.4 L [place] 0.36 L Medications Medications Current Medications Acetaminophen (Acetaminophen 325 Mg Tablet) 650 mg PO Q6H PRN PRN Reason: Headache/Pain Mild Scale (1-3) Al Hydroxide/Mg Hydroxide (Magnesium Hydrox/Alum Hydrox 30 Ml Oral.Susp) 30 ml PO Q6H PRN PRN Reason: Heartburn/Nausea Amlodipine Besylate (Amlodipine Besylate 5 Mg Tablet) 5 mg PO DAILY [facility]; Protocol Last Admin: 08/28/24 08:36 Dose: 5 mg Aripiprazole (Aripiprazole 30 Mg Tablet) 30 mg PO DAILY [facility] Last Admin: 08/28/24 08:36 Dose: 30 mg Benztropine Mesylate (Benztropine Mesylate 1 Mg Tablet) 1 mg PO DAILY [facility] Last Admin: 08/28/24 08:36 Dose: 1 mg Clonazepam (Clonazepam 0.5 Mg Tablet) 0.5 mg PO BID [facility] Last Admin: 08/28/24 08:39 Dose: 0.5 mg Clonidine HCl (Clonidine Hcl 0.1 Mg Tablet) 0.1 mg PO BID [facility]; Protocol Last Admin: 08/28/24 08:37 Dose: 0.1 mg Divalproex Sodium (Divalproex Sodium 500 Mg Tablet.Dr) 500 mg PO BID [facility] Last Admin: 08/28/24 08:36 Dose: 500 mg Docusate Sodium (Docusate Sodium 100 Mg Capsule) 100 mg PO BID [facility] Last Admin: 08/28/24 08:36 Dose: 100 mg Haloperidol (Haloperidol 5 Mg Tablet) 5 mg PO BID [facility] Last Admin: 08/28/24 08:36 Dose: 5 mg Haloperidol Decanoate (Haloperidol Decanoate 50 Mg/Ml Vial) 50 mg IM Q14D [facility] Last Admin: 08/16/24 11:28 Dose: 50 mg Hydroxyzine HCl (Hydroxyzine Hcl 25 Mg Tablet) 25 mg PO Q6H PRN PRN Reason: Anxiety Last Admin: 08/26/24 02:45 Dose: 25 mg Levothyroxine Sodium (Levothyroxine Sodium 75 Mcg Tablet) 75 mcg PO DAILY@0600 [facility] Last Admin: 08/28/24 08:36 Dose: 75 mcg [place] Carbonate ([place] Carbonate Er 450 Mg Tablet.Er) 450 mg PO BEDTIME [facility] Last Admin: 08/28/24 01:25 Dose: 450 mg Lorazepam (Lorazepam 1 Mg Tablet) 1 mg PO Q6H PRN PRN Reason: moderate anxiety Last Admin: 08/28/24 08:36 Dose: 1 mg [place] Hydroxide (Milk Of Magnesia 30 Ml Oral.Susp) 30 ml PO DAILY PRN PRN Reason: Constipation Nicotine (Nicotine 21 Mg Patch.Td24) 21 mg TRANSDERMA DAILY PRN PRN Reason: nicotine cravings Nicotine Polacrilex (Nicotine Polacrilex 2 Mg Gum) 4 mg [place] Q2H PRN PRN Reason: Nicotine Cravings Trazodone HCl (Trazodone Hcl 50 Mg Tablet) 50 mg PO BEDTIME PRN PRN Reason: sleep Last Admin: 08/24/24 20:51 Dose: 50 mg Allergies Allergies Allergy/AdvReac Type Severity Reaction Status Date / Time No Known Allergies Allergy Unverified 08/13/24 19:33 Assessment & Plan Assessment & Plan (1) PTSD (post-traumatic stress disorder): Status: Acute Code(s): F43.10 - Post-traumatic stress disorder, unspecified (2) Schizoaffective disorder, bipolar type: Status: Acute Code(s): F25.0 - Schizoaffective disorder, bipolar type (3) Intellectual disability: Status: Acute Code(s): F79 - Unspecified intellectual disabilities (4) Hypothyroidism: Status: Acute Code(s): E03.9 - Hypothyroidism, unspecified Plan Intellectual Disability, PTSD, Schizoaffective Disorder, Hypothyroidism. 08/17/24: Support, continue to encourage compliance with Yordy's regime, offer milieu engagement. 08/18:Continue current regimen and plans. 08/21: [place], Valproate levels ordered for the a.m. 08/24: [place], Valproate levels (not drawn by lab on 08/22) 08/25: Refusing labs, meds at times, triggered in milieu 08/28 same presentation; reviewed labs and both depakote and [place] subtherapeutic, however collateral reports close to baseline so will continue current med regimen. Pt due for Haldol Dec on 08/30/24 now ordered. Continue tx plan; preparing for dispo Plan: Admit, 12B Collateral contacted Assist pt to feel safe/integrated in milieu Re-established regime Diagnostics as needed Discharge planning with her senior living. Reason for continued inpatient stay Substantial Risk for: stable for discharge and rapid decompensation Time Spent With Patient Time: Total time managing care of this patient today ____ minutes.
[2024-08-28 20:00] VITALS: BP 112/58; PULSE 91; RESP 18; TEMP 36.6; O2SAT 95
[2024-08-28] MEDS: traZODone HCL 50 MG TABLET PO (22:23)
[2024-08-28] MEDS: hydrOXYzine HCL 25 MG TABLET PO (22:23)
[2024-08-29] MEDS: Levothyroxine Sodium 75 MCG TABLET PO (07:19)
[2024-08-29 07:56] VITALS: BP 136/81; PULSE 84; RESP 18; TEMP 36.5; O2SAT 96
[2024-08-29] MEDS: Benztropine Mesylate 1 MG TABLET PO (08:26)
[2024-08-29] MEDS: Divalproex Sodium 500 MG TABLET.DR PO ×2 (08:26→21:48)
[2024-08-29] MEDS: HaloperidoL 5 MG TABLET PO ×2 (08:26→21:48)
[2024-08-29] MEDS: cloNIDine HCL 0.1 MG TABLET PO ×2 (08:26→21:48)
[2024-08-29] MEDS: clonazePAM 0.5 MG TABLET PO ×2 (08:26→21:48)
--- NOTE | 2024-08-29 09:54 | P.PNPSI_ITS ---
Subjective Subjective Date of Service: 08/29/24 Reason For Visit: Schizoaffective disorder, bipolar type Subjective Notes: Section 7 Healthcare Proxy: No Guardianship: No Medical Problems Affecting Mental Status: No Interim History: 43yo with Intellectual impairment, and PTSD who continues to have intermittent regressive episodes of behaviors-of crying acting like a young child and rambling verbally, with delusions- When I met with patient she was calm and talking word salad- thoughts not connecting- she had had episode of regression in am took prn and then had slept and was up just after that when I saw her- She is wondering about dc so she is somewhat aware of plan/what is happening- Medication Compliance: Yes Side effects from medications: No Attending Groups: No Review of Systems Acute medical concerns: No Medical Review of Systems: unchanged Mental Status Exam Mental Status Exam Patient Appearance: Disheveled Patient Orientation: Person and Place Level of Consciousness: Awake Patient Behavior: Dependent and Passive Mood Description: Calm Affect Description: Labile (can regress rapidly with triggers/or no) Patient Cognition Impaired: Yes Ability to Follow Directions: Fair Speech Pattern: Rambling Thought Process: Illogical and Word Salad Depressive Symptoms: Difficulty Concentrating Judgement: Poor Diagnostics Vital Signs (24Hr): Vital Signs - 24 hr 08/28/24 20:00 08/29/24 07:56 Temperature 97.8 F 97.7 F Pulse Rate 91 84 Respiratory Rate 18 18 Blood Pressure 112/58 L 136/81 Pulse Oximetry 95 96 Oxygen Delivery Method Room Air BMI result Body Mass Index 37.4 Labs 08/13/24 19:58 08/16/24 08:08 Medications Medications Current Medications Acetaminophen (Acetaminophen 325 Mg Tablet) 650 mg PO Q6H PRN PRN Reason: Headache/Pain Mild Scale (1-3) Al Hydroxide/Mg Hydroxide (Magnesium Hydrox/Alum Hydrox 30 Ml Oral.Susp) 30 ml PO Q6H PRN PRN Reason: Heartburn/Nausea Amlodipine Besylate (Amlodipine Besylate 5 Mg Tablet) 5 mg PO DAILY [facility]; Protocol Last Admin: 08/28/24 08:36 Dose: 5 mg Aripiprazole (Aripiprazole 30 Mg Tablet) 30 mg PO DAILY [facility] Last Admin: 08/28/24 08:36 Dose: 30 mg Benztropine Mesylate (Benztropine Mesylate 1 Mg Tablet) 1 mg PO DAILY [facility] Last Admin: 08/29/24 08:26 Dose: 1 mg Clonazepam (Clonazepam 0.5 Mg Tablet) 0.5 mg PO BID [facility] Last Admin: 08/29/24 08:26 Dose: 0.5 mg Clonidine HCl (Clonidine Hcl 0.1 Mg Tablet) 0.1 mg PO BID [facility]; Protocol Last Admin: 08/29/24 08:26 Dose: 0.1 mg Divalproex Sodium (Divalproex Sodium 500 Mg Tablet.Dr) 500 mg PO BID [facility] Last Admin: 08/29/24 08:26 Dose: 500 mg Docusate Sodium (Docusate Sodium 100 Mg Capsule) 100 mg PO BID [facility] Last Admin: 08/28/24 22:23 Dose: 100 mg Haloperidol (Haloperidol 5 Mg Tablet) 5 mg PO BID [facility] Last Admin: 08/29/24 08:26 Dose: 5 mg Haloperidol Decanoate (Haloperidol Decanoate 50 Mg/Ml Vial) 50 mg IM Q14D [facility] Hydroxyzine HCl (Hydroxyzine Hcl 25 Mg Tablet) 25 mg PO Q6H PRN PRN Reason: Anxiety Last Admin: 08/28/24 22:23 Dose: 25 mg Levothyroxine Sodium (Levothyroxine Sodium 75 Mcg Tablet) 75 mcg PO DAILY@0600 [facility] Last Admin: 08/29/24 07:19 Dose: 75 mcg Wilsonia Carbonate (Wilsonia Carbonate Er 450 Mg Tablet.Er) 450 mg PO BEDTIME [facility] Last Admin: 08/28/24 22:24 Dose: 450 mg Lorazepam (Lorazepam 1 Mg Tablet) 1 mg PO Q6H PRN PRN Reason: moderate anxiety Last Admin: 08/28/24 22:24 Dose: 1 mg Magnesium Hydroxide (Milk Of Magnesia 30 Ml Oral.Susp) 30 ml PO DAILY PRN PRN Reason: Constipation Nicotine (Nicotine 21 Mg Patch.Td24) 21 mg TRANSDERMA DAILY PRN PRN Reason: nicotine cravings Nicotine Polacrilex (Nicotine Polacrilex 2 Mg Gum) 4 mg BUCCAL Q2H PRN PRN Reason: Nicotine Cravings Trazodone HCl (Trazodone Hcl 50 Mg Tablet) 50 mg PO BEDTIME PRN PRN Reason: sleep Last Admin: 08/28/24 22:23 Dose: 50 mg Allergies Allergies Allergy/AdvReac Type Severity Reaction Status Date / Time No Known Allergies Allergy Unverified 08/13/24 19:33 Assessment & Plan Assessment & Plan (1) PTSD (post-traumatic stress disorder): Status: Acute Code(s): F43.10 - Post-traumatic stress disorder, unspecified (2) Schizoaffective disorder, bipolar type: Status: Acute Code(s): F25.0 - Schizoaffective disorder, bipolar type (3) Intellectual disability: Status: Acute Code(s): F79 - Unspecified intellectual disabilities (4) Hypothyroidism: Status: Acute Code(s): E03.9 - Hypothyroidism, unspecified Plan Intellectual Disability, PTSD, Schizoaffective Disorder, Hypothyroidism. 08/17/24: Support, continue to encourage compliance with Yordy's regime, offer milieu engagement. 08/18:Continue current regimen and plans. 08/21: Wilsonia, Valproate levels ordered for the a.m. 08/24: Wilsonia, Valproate levels (not drawn by lab on 08/22) 08/25: Refusing labs, meds at times, triggered in milieu 08/28 same presentation; reviewed labs and both depakote and Wilsonia subtherapeutic, however collateral reports close to baseline so will continue current med regimen. Pt due for Haldol Dec on 08/30/24 now ordered. Continue tx plan; preparing for dispo 08/29/24 continues with some regressive behaviors responding to prns and ongoing thought disorder, continued psych hosp needed for more sucessful dc than last or risk rapid decompensation and rehospitalization. Plan: Admit, 12B Collateral contacted Assist pt to feel safe/integrated in milieu Re-established regime Diagnostics as needed Discharge planning with her halfway. Patient educated on: other (re dc ) Informed Consent: further education needed Reason for continued inpatient stay Substantial Risk for: rapid decompensation Time Spent With Patient Time: Total time managing care of this patient today ____ minutes.
[2024-08-29] MEDS: amLODIPine Besylate 5 MG TABLET PO (12:57)
[2024-08-29] MEDS: Docusate Sodium 100 MG CAPSULE PO ×2 (12:57→21:48)
[2024-08-29] MEDS: ARIPiprazole 30 MG TABLET PO (12:58)
[2024-08-29 21:00] VITALS: BP 128/79; PULSE 84; RESP 16; TEMP 36.4; O2SAT 100
[2024-08-29] MEDS: Lithium Carbonate ER 450 MG TABLET.ER PO (21:48)
--- NOTE | 2024-08-30 04:33 | HO.PSYEVENT ---
Event Note Date of Service: 08/30/24 Psych Restraint Event Note: Contacted at 4:30 am about patient swinging at staff, attempting to pull things off wall and banging on wall- was put in physical hold for 2 minutes and given haldol 5mg IM and benadryl 50mg IM- Time Spent With Patient Time: Total time managing care of this patient today ____ minutes.
--- NOTE | 2024-08-30 04:33 | MHC.PM.REST ---
Restraint Documentation Date of Service: 08/30/24 Time of Documentation: 04:34 Current Situation: After assessment of the patient, a review of the pertinent medical record and a discussion with nursing staff, I feel the patient requires a restrain intervention. Reaction To: escalating physical aggression,banging wall, attempting to pull soap dispenser from wall; shouting and swinging at stafff Medical Condition: Intellectual disability , PTSD, schizoaffective disorder Behavioral State: physical agitation as well as mental agitation Continued Need: refusing po medications Time Spent With Patient Time: Total time managing care of this patient today ____ minutes.
[2024-08-30] MEDS: diphenhydrAMINE HCL 50 MG/ML VIAL IM (04:45)
[2024-08-30] MEDS: Haloperidol Lactate 5 MG/ML VIAL IM (04:45)
--- NOTE | 2024-08-30 06:24 | HO.BHRESTREX ---
Behavioral Restraint Exam Behavioral Health Restraint Exam Type of Restraint: Medication Reason for Restraint: Substantial Risk and Substantial Risk of Harm to Others Medical Concerns for Restraint: No medical concerns, pt w/o acute inj / no noted resp/VS abnormalities Behavioral Assessment / Plan: No further behavioral concerns, continue current plan.
--- NOTE | 2024-08-30 07:27 | PC.NURSE ---
Pt perseverative about leaving throughout shift, staring out exit door window, gathered belongings by door. @0415 on 08/30/24 pt crying, attempted to push out of doors saying I wanna go home ran down hallway into bathroom of another patient's room and began banging on christine with both fists, attempting to pull soap dispenser off of wall, pt yelling nonsensical and garbled speech, not redirectable for minutes of shouting, eventually agreed to leave bathroom and return to [facility]. Pt entered own bedroom, staff nearby trying to deescalate pt, pt pulled hairtie from hair and began wrapping it around wrist tight enough to turn hand purple, when staff attempted to address hairtie pt began charging at staff and raising arms in threatening manner. Staff managed to avoid pt physicality at this time, provider contacted, security called for standby assist. Multiple additional attempts to deescalate pt, Physical hold @0443, Haldol 5mg and Benadryl 50mg IM @ 0445. RN remained with patient to maintain safety after IM admin.
[2024-08-30 08:00] VITALS: BP 178/77
[2024-08-30] MEDS: amLODIPine Besylate 5 MG TABLET PO (08:00)
[2024-08-30] MEDS: ARIPiprazole 30 MG TABLET PO (08:00)
[2024-08-30] MEDS: clonazePAM 0.5 MG TABLET PO (08:00)
[2024-08-30] MEDS: Docusate Sodium 100 MG CAPSULE PO (08:00)
[2024-08-30 08:01] VITALS: BP 178/77
[2024-08-30] MEDS: Divalproex Sodium 500 MG TABLET.DR PO (08:01)
[2024-08-30] MEDS: Levothyroxine Sodium 75 MCG TABLET PO (08:01)
[2024-08-30] MEDS: cloNIDine HCL 0.1 MG TABLET PO (08:01)
[2024-08-30] MEDS: Benztropine Mesylate 1 MG TABLET PO (08:01)
[2024-08-30] MEDS: hydrOXYzine HCL 25 MG TABLET PO (08:01)
[2024-08-30] MEDS: HaloperidoL 5 MG TABLET PO (08:01)
[2024-08-30] MEDS: Haloperidol Decanoate 50 MG/ML VIAL IM (10:25)
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
== END 2024-08-30 11:11 | disposition home or self-care (01) | DRG 885 ==
LOC: HO.ED 08-14 07:45 → HO.PM5 08-15 12:08
PROVIDERS: Internal Medicine; Admitting Provider Clinical Nurse Specialist Psychiatric/Mental Health, Adult; Emergency Provider Emergency Medicine Emergency Medical Services; Visit Provider Clinical Nurse Specialist Psychiatric/Mental Health, Adult
DX: F25.0 Schizoaffective disorder, bipolar type (principal); F43.10 Post-traumatic stress disorder, unspecified; E03.9 Hypothyroidism, unspecified; F79 Unspecified intellectual disabilities; Z78.1 Physical restraint status; Z91.410 Personal history of adult physical and sexual abuse; Z79.890 Hormone replacement therapy; Z79.899 Other long term (current) drug therapy
CPT/HCPCS: 36415; 80053; 80164; 80178; 80307; 81003; 81025; 85025; 93005; 99285; J1200; J1630; J1631; J2060; J3230

== ENCOUNTER → 2024-08-14 08:36 | Outpatient (BNV) | payer MEDICARE, MEDICAID, SELFPAY | PROVIDERS: Emergency Provider Emergency Medicine Emergency Medical Services; Visit Provider Internal Medicine | DX: F25.0 Schizoaffective disorder, bipolar type (principal); Z01.810 Encounter for preprocedural cardiovascular examination | CPT/HCPCS: 93010 ==

== ENCOUNTER → 2024-08-15 12:07 | Outpatient (BNV) | payer MEDICARE, MEDICAID, SELFPAY | PROVIDERS: Admitting Provider Clinical Nurse Specialist Psychiatric/Mental Health, Adult; Emergency Provider Emergency Medicine Emergency Medical Services; Visit Provider Clinical Nurse Specialist Psychiatric/Mental Health, Adult | DX: F25.0 Schizoaffective disorder, bipolar type (principal); F43.11 Post-traumatic stress disorder, acute; F79 Unspecified intellectual disabilities; E03.9 Hypothyroidism, unspecified | CPT/HCPCS: 90792; 99231; 99232 ==